=== PATIENT | male | born 1935 | race Caucasian/White ===

== ENCOUNTER 2016-08-26 12:42 | Inpatient (IN) | payer MEDICARE, OTHER ==
[2016-08-26 14:00] LABS: HEMATOCRIT 34.1 % (37.9-51.0); HEMOGLOBIN 10.6 g/dL (13.5-17.0); HGB HCT DIFFERENCE -2.3; MEAN CORPUSCULAR HGB CONC 31.1 g/dL (32.0-36.0); MEAN CORPUSCULAR VOLUME 90 fl (80-97); RED BLOOD COUNT 3.78 10^6/uL (4.35-5.55); RED CELL DISTRIBUTION WIDTH 14.8 % (11.5-14.0)
[2016-08-26 14:13] LABS: ALANINE AMINOTRANSFERASE 26 U/L (21-72); ALBUMIN 3.1 g/dL (3.5-5.0); ALKALINE PHOSPHATASE 54 U/L (38-126); ANION GAP 12 (5-19); ASPARTATE AMINO TRANSFERASE 19 U/L (17-59); BILIRUBIN,TOTAL 0.7 mg/dL (0.2-1.3); BLOOD UREA NITROGEN 23 mg/dL (7-20); CALCIUM 9.2 mg/dL (8.4-10.2); CARBON DIOXIDE 26 mmol/L (22-30); CHLORIDE 103 mmol/L (98-107); CREATININE RESULT 1.23 mg/dL (0.52-1.25); GLUCOSE 180 mg/dL (75-110); POTASSIUM 4.2 mmol/L (3.6-5.0); SODIUM 141.4 mmol/L (137-145); TOTAL PROTEIN 5.6 g/dL (6.3-8.2)
[2016-08-26 14:15] LABS: BAND NEUTROPHILS % (MANUAL) 5 % (3-5); BASOPHILS % (MANUAL) 0 % (0-2); EOSINOPHILS % (MANUAL) 0 % (0-6); LYMPHOCYTES % (MANUAL) 1 % (13-45); TOTAL CELLS COUNTED 100
[2016-08-26 14:19] LABS: HYPOCHROMASIA SLIGHT; OVALOCYTES SLIGHT; POIKILOCYTOSIS SLIGHT
--- NOTE | 2016-08-26 14:37 | ER Document Report ---
ED GI/ - General Mode of Arrival: Wheelchair Information source: Relative - and daughter - HPI Patient complains to provider of: Other - urine odor Associated symptoms: Other - See above <BISI FISH - Last Filed: 08/26/16 15:40> <ELKIN SWARTZ - Last Filed: 08/26/16 16:42> - General Chief Complaint: Urinary Problem Stated Complaint: urine odor Notes: Patient is an 81 year old male, with a past medical history including dementia, who presents to the emergency department, via EMS, with his and daughter for increased urine odor. Per , patient has had worsening dementia for the past 6-7 years, he is mostly non verbal, is able to partially eat and drink on his own, uses Depends, and is normally able to walk with assistance of a walker. Patient's reports that she noticed the patient's urine had a very strong odor this morning, he was diaphoretic and feverish, and he was unable to walk at all. Patient recently had a UTI, diagnosed at his doctor's office via urine sample taken from home, about 3 weeks ago and had been on antibiotics, he completed the treatment about a week ago. This was patient's 3rd UTI in 2 months. Per , patient has not vomited, had diarrhea, rashes, or unusual swelling. Patient's reports patient's last bowel movement was 2 days ago and was soft. PCP: Dr. Valderrama (BISI FISH) - Related Data Allergies/Adverse Reactions: No Known Allergies Allergy (Verified 08/26/16 15:51) Past Medical History - General Information source: Relative - - Social History Smoking Status: Unknown if Ever Smoked Family History: Reviewed & Not Pertinent Pulmonary Medical History: Reports: Hx COPD Renal/ Medical History: Reports: Hx Benign Prostatic Hyperplasia Psychiatric Medical History: Reports: Hx Dementia Past Surgical History: Reports: Hx Appendectomy, Hx Bowel Surgery - obstruction , Hx Thyroid Surgery <BISI FISH - Last Filed: 08/26/16 15:40> Review of Systems - Review of Systems -: Yes ROS unobtainable due to patient's medical condition - demented at baseline, nonverbal <BISI FISH - Last Filed: 08/26/16 15:40> Physical Exam - Vital signs Interpretation: Normal - General General appearance: Appears well, Alert - HEENT Head: Normocephalic, Atraumatic Eyes: Normal Pupils: PERRL Mucous membranes: Moist - Respiratory Respiratory status: No respiratory distress Chest status: Nontender Breath sounds: Normal Chest palpation: Normal - Cardiovascular Rhythm: Regular Heart sounds: Normal auscultation - distant heart sounds Murmur: No - Abdominal Inspection: Normal Distension: No distension Bowel sounds: Normal Tenderness: Nontender Organomegaly: No organomegaly - Extremities General upper extremity: Normal inspection General lower extremity: Normal inspection. No: Edema - Neurological Cognition: Other - Demented at baseline, non verbal - Skin Skin Moisture: Dry - Very dry Skin Color: Pale <BISI FISH - Last Filed: 08/26/16 15:40> Course - Laboratory Result Diagrams: 08/26/16 13:35 08/26/16 13:35 <BISI FISH - Last Filed: 08/26/16 15:40> - Laboratory Result Diagrams: 08/26/16 13:35 08/26/16 13:35 <ELKIN SWARTZ - Last Filed: 08/26/16 16:42> - Re-evaluation Re-evalutation: Medical decision-making: Patient with history of Alzheimer's dementia presents with foul-smelling urine and generalized weakness. His indicates that this morning he was diaphoretic and warm to touch. Patient exam is clinically worrisome for sepsis. He has a large leukocytosis and elevated lactate. Giving fluids and empirically treating with IV antibiotics. She will need to be admitted for IV fluids and antibiotics and likely further disposition and management as it seems that patient's could use some additional resources for looking after him. 08/26/16 14:54 08/26/16 16:[address] Abraham who is on-call for Dr. Valderrama who agrees to the admission. He indicates patient can go to the [facility]. (ELKIN SWARTZ) - Vital Signs Vital signs: Temp Pulse Resp BP Pulse Ox 99.0 F 81 18 113/64 96 08/26/16 16:03 08/26/16 13:15 08/26/16 16:00 08/26/16 16:00 08/26/16 16:00 (BISI FISH) (ELKIN SWARTZ) - Laboratory Laboratory results interpreted by me: 08/26/16 08/26/16 08/26/16 13:35 13:35 13:35 WBC 21.0 H RBC 3.78 L Hgb 10.6 L Hct 34.1 L MCHC 31.1 L RDW 14.8 H Seg Neuts % (Manual) 86 H Lymphocytes % (Manual) 1 L Abs Neuts (Manual) 19.1 H Abs Lymphs (Manual) 0.2 L Abs Monocytes (Manual) 1.7 H BUN 23 H Est GFR (Non-Af Amer) 56 L Glucose 180 H Lactic Acid 4.1 H Total Protein 5.6 L Albumin 3.1 L Urine Protein Urine Blood Urine Nitrite Ur Leukocyte Esterase 08/26/16 15:35 WBC RBC Hgb Hct MCHC RDW Seg Neuts % (Manual) Lymphocytes % (Manual) Abs Neuts (Manual) Abs Lymphs (Manual) Abs Monocytes (Manual) BUN Est GFR (Non-Af Amer) Glucose Lactic Acid Total Protein Albumin Urine Protein 100 H Urine Blood SMALL H Urine Nitrite POSITIVE H Ur Leukocyte Esterase LARGE H (BISI FISH) (ELKIN SWARTZ) - EKG Interpretation by Me Additional EKG results interpreted by me: 08/26/16 14:56 EKG: Heart rate 74, normal sinus rhythm, normal axis, normal intervals, no ST elevations, as interpreted by me. (ELKIN SWARTZ) Discharge <BISI FISH - Last Filed: 08/26/16 15:40> - Discharge Admitting Provider: [facility] Unit Admitted: [facility] <ELKIN SWARTZ - Last Filed: 08/26/16 16:42> - Discharge Clinical Impression: Sepsis syndrome, Urinary tract infection Condition: Serious Disposition: ADMITTED INPATIENT Scribe Attestation: 08/26/16 16:42 I personally performed the services described in the documentation, reviewed and edited the documentation which was dictated to the scribe in my presence, and it accurately records my words and actions. (ELKIN SWARTZ) Scribe Documentation - Scribe Written by Curtis:: curtis Ybarra, 08/26/16, [id number] acting as scribe for :: King <BISI FISH - Last Filed: 08/26/16 15:40>
[2016-08-26] MEDS ORDERED: NORMAL SALINE 1000 ML 1,000 ML IV PRN ×2 (14:39→17:50)
[2016-08-26] MEDS ORDERED: CEFTRIAXONE 1 GM/D5W RTU 50 ML IV ONE (14:40)
--- NOTE | 2016-08-26 15:17 | EKG REPORT ---
SEVERITY:- NORMAL ECG - SINUS RHYTHM : Confirmed by: Karla Flores MD 26-Aug-2016 15:16:08
[2016-08-26 16:23] LABS: APPEARANCE,URINE CLOUDY; BILIRUBIN,URINE NEGATIVE (NEGATIVE); GLUCOSE, URINE NEGATIVE (NEGATIVE); KETONES,URINE NEGATIVE (NEGATIVE); LEUKOCYTE ESTERASE,URINE LARGE (NEGATIVE); NITRITE,URINE POSITIVE (NEGATIVE); PROTEIN,URINE 100 mg/dL (NEGATIVE); URINE SPECIFIC GRAVITY 1.017; UROBILINOGEN,URINE NEGATIVE mg/dL (<2.0)
--- NOTE | 2016-08-26 18:08 | PDOC H&P ---
History of Present Illness Admission Date/PCP: AURELIA BOLANOS Patient complains of: fever/shivering History of Present Illness: ERIC COLLINS SR is a 81 year old male pt brought by family due to shivering and fever and not feeling well since last 2 days pt also had uti last wk and was on amoxicillin and noticed since yesterday pt felt very weak and shivering in er pt found urosepsis and start iv Rocephin and iv fluid pt also have dementia and per since last 2 wk pt is non verbal and more declined condition pt is er room alert and awake and shivering but no acute distress Past Medical History Pulmonary Medical History: Reports: Chronic Obstructive Pulmonary Disease (COPD) Psychiatric Medical History: Reports: Dementia Past Surgical History Past Surgical History: Reports: Appendectomy Social History Smoking Status: Former Smoker Frequency of Alcohol Use: None Hx Recreational Drug Use: No Hx Prescription Drug Abuse: No - Advance Directive Resuscitation Status: Do Not Resuscitate Family History Family History: Reviewed & Not Pertinent Parental Family History Reviewed: Yes Children Family History Reviewed: Yes Sibling(s) Family History Reviewed.: Yes Medication/Allergy Allergies/Adverse Reactions: No Known Allergies Allergy (Verified 08/26/16 15:51) Review of Systems Constitutional: PRESENT: chills, night sweats, weakness Nose, Mouth, and Throat: PRESENT: headache(s) Cardiovascular: ABSENT: chest pain, dyspnea on exertion Respiratory: ABSENT: cough Gastrointestinal: ABSENT: as per HPI, abdominal pain, bloating, coffee ground emesis, constipation, diarrhea, dysphagia, heartburn, hematemesis, hematochezia , melena, nausea, vomiting, other Genitourinary: PRESENT: difficulty urinating, dysuria, other Musculoskeletal: ABSENT: as per HPI, back pain, deformity, joint swelling, muscle weakness, other Integumentary: PRESENT: diaphoresis Neurological: PRESENT: confusion Physical Exam Vital Signs: Temp Pulse Resp BP Pulse Ox 98.6 F 81 20 137/63 H 95 08/26/16 17:53 08/26/16 13:15 08/26/16 17:53 08/26/16 17:53 08/26/16 17:53 Intake & Output 08/25/16 08/26/16 08/27/16 06:59 06:59 06:59 Weight 79.379 kg General appearance: PRESENT: no acute distress, other Head exam: PRESENT: normocephalic Eye exam: PRESENT: PERRLA Mouth exam: PRESENT: dry mucosa Neck exam: ABSENT: JVD Respiratory exam: PRESENT: clear to auscultation madai Cardiovascular exam: PRESENT: +S1, +S2 GI/Abdominal exam: PRESENT: normal bowel sounds, soft. ABSENT: tenderness Extremities exam: ABSENT: pedal edema Musculoskeletal exam: PRESENT: other Neurological exam: PRESENT: alert, altered, awake, oriented to person Psychiatric exam: PRESENT: anxious Skin exam: PRESENT: dry Results Laboratory Results: 08/26/16 13:35 08/26/16 13:35 08/26/16 08/26/16 08/26/16 13:35 13:35 13:35 WBC 21.0 H RBC 3.78 L Hgb 10.6 L Hct 34.1 L MCV 90 MCH 28.0 MCHC 31.1 L RDW 14.8 H Plt Count 209 Seg Neutrophils % Not Reportable Lymphocytes % Not Reportable Monocytes % Not Reportable Eosinophils % Not Reportable Basophils % Not Reportable Absolute Neutrophils Not Reportable Absolute Lymphocytes Not Reportable Absolute Monocytes Not Reportable Absolute Eosinophils Not Reportable Absolute Basophils Not Reportable Sodium 141.4 Potassium 4.2 Chloride 103 Carbon Dioxide 26 Anion Gap 12 BUN 23 H Creatinine 1.23 Est GFR ( Amer) > 60 Est GFR (Non-Af Amer) 56 L Glucose 180 H Lactic Acid 4.1 H Calcium 9.2 Total Bilirubin 0.7 AST 19 ALT 26 Alkaline Phosphatase 54 Total Protein 5.6 L Albumin 3.1 L Urine Color Urine Appearance Urine pH Ur Specific [place] Urine Protein Urine Glucose (UA) Urine Ketones Urine Blood Urine Nitrite Ur Leukocyte Esterase Urine WBC (Auto) Urine RBC (Auto) 08/26/16 15:35 WBC RBC Hgb Hct MCV MCH MCHC RDW Plt Count Seg Neutrophils % Lymphocytes % Monocytes % Eosinophils % Basophils % Absolute Neutrophils Absolute Lymphocytes Absolute Monocytes Absolute Eosinophils Absolute Basophils Sodium Potassium Chloride Carbon Dioxide Anion Gap BUN Creatinine Est GFR ( Amer) Est GFR (Non-Af Amer) Glucose Lactic Acid Calcium Total Bilirubin AST ALT Alkaline Phosphatase Total Protein Albumin Urine Color YELLOW Urine Appearance CLOUDY Urine pH 6.0 Ur Specific [place] 1.017 Urine Protein 100 H Urine Glucose (UA) NEGATIVE Urine Ketones NEGATIVE Urine Blood SMALL H Urine Nitrite POSITIVE H Ur Leukocyte Esterase LARGE H Urine WBC (Auto) >182 Urine RBC (Auto) 5 Impressions: Chest X-Ray 08/26/16 14:42 IMPRESSION: Obstructive lung disease. No acute findings. Assessment & Plan - Diagnosis (1) Sepsis syndrome Is this a current diagnosis for this admission?: YesPlan: most likly from uti will get urine culture/blood culture start broad sepctum antibiotics (2) Urinary tract infection Qualifiers: Hematuria presence: without hematuria Is this a current diagnosis for this admission?: YesPlan: recurrent episode start cefepim awit for culture iv fluid (3) Dementia Qualifiers: Dementia type: unspecified type Is this a current diagnosis for this admission?: YesPlan: since last 7 yr per family cont curr medication (4) COPD (chronic obstructive pulmonary disease) Qualifiers: COPD type: unspecified COPD Qualified Code(s): J44.9 - Chronic obstructive pulmonary disease, unspecified Is this a current diagnosis for this admission?: YesPlan: cont neb rx - Time Time Spent: 50 to 70 Minutes Medications reviewed and adjusted accordingly: Yes Anticipated discharge: Other - Inpatient Certification Medical Necessity: Failure to Improve With Outpatient Therapy, Need For IV Fluids, Need for IV Antibiotics Post Hospital Care: D/C Industrial Pharmacist Documentation - Plan Summary Plan Summary: start iv antiboitcs awit for culture iv fluid d/w family in room about pt condition and pt is no code pt is urosepsis and poor prognosis
[2016-08-26] MEDS: DOCUSATE SODIUM 100 MG CAPSULE PO SCH (18:34)
[2016-08-26] MEDS ORDERED: CEFEPIME 1 GM/D5W RTU 1 GM/50 ML RTUPB IV ONE (23:38)
[2016-08-26] MEDS: IBUPROFEN 600 MG TABLET PO PRN (23:52)
[2016-08-26] MEDS: CEFEPIME 1 GM/D5W RTU 1 GM/50 ML RTUPB IV SCH (23:53)
[2016-08-27] MEDS ORDERED: FAMOTIDINE 20 MG TABLET PO SCH ×2 (00:30→10:00)
[2016-08-27] MEDS ORDERED: GUAIFENESIN SYRP 200 MG/10 ML UDC PO PRN (00:57)
[2016-08-27] MEDS ORDERED: IPRATROPIUM/ALBUTEROL 0.5-2.5 MG/3 ML AMPUL NEB PRN (01:06)
[2016-08-27] MEDS ORDERED: IBUPROFEN 200 MG PO PRN (01:06)
[2016-08-27 04:54] LABS: ABSOLUTE BASOPHILS # (AUTO) 0.1 10^3/uL (0.0-0.2); ABSOLUTE LYMPHOCYTES (AUTO) 0.8 10^3/uL (0.5-4.7); ABSOLUTE MONOCYTES (AUTO) 0.9 10^3/uL (0.1-1.4); ABSOLUTE NEUT (AUTO) 13.7 10^3/uL (1.7-8.2); BASOPHILS % (AUTO) 0.4 % (0-2); EOSINOPHILS % (AUTO) 0.1 % (0-6); HEMATOCRIT 29.6 % (37.9-51.0); HEMOGLOBIN 9.4 g/dL (13.5-17.0); HGB HCT DIFFERENCE -1.4; LYMPHOCYTES % (AUTO) 5.2 % (13-45); MEAN CORPUSCULAR HEMOGLOBIN 28.5 pg (27.0-33.4); MEAN CORPUSCULAR HGB CONC 31.8 g/dL (32.0-36.0); MEAN CORPUSCULAR VOLUME 90 fl (80-97); MONOCYTES % (AUTO) 5.8 % (3-13); RED CELL DISTRIBUTION WIDTH 15.5 % (11.5-14.0); SEGMENTED NEUTROPHILS % (AUTO) 88.5 % (42-78); WHITE BLOOD COUNT 15.5 10^3/uL (4.0-10.5)
[2016-08-27 05:16] LABS: ALANINE AMINOTRANSFERASE 24 U/L (21-72); ALBUMIN 2.7 g/dL (3.5-5.0); ALKALINE PHOSPHATASE 47 U/L (38-126); ANION GAP 7 (5-19); ASPARTATE AMINO TRANSFERASE 18 U/L (17-59); BILIRUBIN,TOTAL 0.4 mg/dL (0.2-1.3); BLOOD UREA NITROGEN 23 mg/dL (7-20); CALCIUM 8.2 mg/dL (8.4-10.2); CARBON DIOXIDE 24 mmol/L (22-30); CHLORIDE 112 mmol/L (98-107); CREATININE RESULT 0.99 mg/dL (0.52-1.25); GLUCOSE 108 mg/dL (75-110); POTASSIUM 3.8 mmol/L (3.6-5.0); SODIUM 142.9 mmol/L (137-145); TOTAL PROTEIN 4.8 g/dL (6.3-8.2)
[2016-08-27] MEDS: LEVOTHYROXINE SODIUM 0.075 MG TABLET PO SCH (05:16)
[2016-08-27] MEDS: ACETAMINOPHEN 325 MG TABLET PO PRN (05:16)
[2016-08-27] MEDS: IBUPROFEN 600 MG TABLET PO PRN (05:17)
[2016-08-27] MEDS: LEVALBUTEROL HCL NEB 0.63 MG/3 ML AMPUL NEB SCH (08:06)
[2016-08-27] MEDS: ENOXAPARIN SODIUM INJ 40 MG/0.4 ML DISP.SYRIN SUBCUT SCH (09:16)
[2016-08-27] MEDS: DOXAZOSIN MESYLATE 4 MG TABLET PO SCH (09:17)
[2016-08-27] MEDS: CALCIUM CARBONATE 250 MG/VITAMIN D3 125 UNIT TABLET PO SCH (09:17)
[2016-08-27] MEDS: CITALOPRAM HYDROBROMIDE 20 MG TABLET PO SCH (09:17)
[2016-08-27] MEDS: ASCORBIC ACID 500 MG TABLET PO SCH (09:18)
[2016-08-27] MEDS: ASPIRIN 81 MG TABLET, CHEWABLE PO SCH (09:18)
[2016-08-27] MEDS: MULTIVITAMIN TABLET PO SCH (09:19)
[2016-08-27] MEDS: FINASTERIDE 5 MG TABLET PO SCH (09:19)
[2016-08-27] MEDS: DOCUSATE SODIUM 100 MG CAPSULE PO SCH ×2 (09:35→17:36)
[2016-08-27] MEDS: FLUTICASONE NASAL SPRAY 50 MCG/SPRY 120 SPRAY/16 GM NASL SCH (09:35)
[2016-08-27] MEDS ORDERED: [UNRECOGNIZED DRUG - OTHER] PO SCH (10:00)
[2016-08-27] MEDS ORDERED: CITALOPRAM HYDROBROMIDE 20 MG TABLET PO SCH (10:00)
[2016-08-27] MEDS ORDERED: LATANOPROST 0.005% OPH SOLN 2.5 ML OS SCH (10:00)
[2016-08-27] MEDS ORDERED: (PENDING PHARMACY ID) (Ranitidine Hcl [Zantac 150 Mg Tablet] 150 MG) PO SCH (10:00)
[2016-08-27] MEDS ORDERED: MULTIVITAMIN TABLET PO SCH (10:00)
[2016-08-27] MEDS ORDERED: LEVALBUTEROL HCL NEB 0.63 MG/3 ML AMPUL NEB SCH (10:00)
[2016-08-27] MEDS ORDERED: FLUTICASONE NASAL SPRAY 50 MCG/SPRY 120 SPRAY/16 GM NASL SCH (10:00)
[2016-08-27] MEDS ORDERED: DONEPEZIL HCL 23 MG PO SCH (10:00)
[2016-08-27] MEDS ORDERED: DOXAZOSIN MESYLATE 1 MG TABLET PO SCH (10:00)
[2016-08-27] MEDS ORDERED: LEVOTHYROXINE SODIUM 0.075 MG TABLET PO SCH (10:00)
[2016-08-27] MEDS ORDERED: CALCIUM CARBONATE PO SCH (10:00)
[2016-08-27] MEDS ORDERED: (PENDING PHARMACY ID) (Memantine Hcl [Namenda Xr] 28 MG) PO SCH (10:00)
[2016-08-27] MEDS ORDERED: LYCOPENE PO SCH (10:00)
[2016-08-27] MEDS ORDERED: VITAMIN D3 PO SCH (10:00)
[2016-08-27] MEDS ORDERED: ASPIRIN 81 MG TABLET, CHEWABLE PO SCH (10:00)
[2016-08-27] MEDS ORDERED: [UNRECOGNIZED DRUG - OTHER] PO SCH (10:00)
[2016-08-27] MEDS ORDERED: MULTIVITS MINERALS PO SCH (10:00)
[2016-08-27] MEDS: CEFEPIME 1 GM/D5W RTU 1 GM/50 ML RTUPB IV SCH ×2 (11:06→21:40)
[2016-08-27] MEDS ORDERED: NORMAL SALINE 1000 ML 1,000 ML IV PRN (13:08)
[2016-08-27] MEDS ORDERED: IBUPROFEN 600 MG TABLET PO PRN (13:13)
--- NOTE | 2016-08-27 13:13 | PDOC PROGRESS REPORT ---
Subjective Progress Note for:: 08/27/16 Subjective:: pt is feeling better fever also down pt blood culture shows gran neg Physical Exam Vital Signs: Temp Pulse Resp BP Pulse Ox 97.9 F 74 18 112/47 L 94 08/27/16 07:42 08/27/16 08:06 08/27/16 08:06 08/27/16 07:42 08/27/16 08:06 Intake & Output 08/26/16 08/27/16 08/28/16 06:59 06:59 06:59 Intake Total 850 591 Output Total 400 150 Balance 450 441 Weight 79.3 kg General appearance: PRESENT: no acute distress Eye exam: PRESENT: PERRLA Mouth exam: PRESENT: neck supple Respiratory exam: PRESENT: clear to auscultation madai Cardiovascular exam: PRESENT: +S1, +S2 GI/Abdominal exam: PRESENT: normal bowel sounds, soft. ABSENT: tenderness Extremities exam: ABSENT: pedal edema Neurological exam: PRESENT: alert, altered Skin exam: PRESENT: dry Results Laboratory Results: 08/27/16 04:36 08/27/16 04:36 08/26/16 08/27/16 08/27/16 19:35 03:46 04:36 WBC 15.5 H RBC 3.30 L Hgb 9.4 L Hct 29.6 L MCV 90 MCH 28.5 MCHC 31.8 L RDW 15.5 H Plt Count 149 L Seg Neutrophils % 88.5 H Lymphocytes % 5.2 L Monocytes % 5.8 Eosinophils % 0.1 Basophils % 0.4 Absolute Neutrophils 13.7 H Absolute Lymphocytes 0.8 Absolute Monocytes 0.9 Absolute Eosinophils 0.0 Absolute Basophils 0.1 Sodium Potassium Chloride Carbon Dioxide Anion Gap BUN Creatinine Est GFR ( Amer) Est GFR (Non-Af Amer) Glucose Lactic Acid 2.3 H 0.7 Calcium Total Bilirubin AST ALT Alkaline Phosphatase Total Protein Albumin 08/27/16 04:36 WBC RBC Hgb Hct MCV MCH MCHC RDW Plt Count Seg Neutrophils % Lymphocytes % Monocytes % Eosinophils % Basophils % Absolute Neutrophils Absolute Lymphocytes Absolute Monocytes Absolute Eosinophils Absolute Basophils Sodium 142.9 Potassium 3.8 Chloride 112 H Carbon Dioxide 24 Anion Gap 7 BUN 23 H Creatinine 0.99 Est GFR ( Amer) > 60 Est GFR (Non-Af Amer) > 60 Glucose 108 Lactic Acid Calcium 8.2 L Total Bilirubin 0.4 AST 18 ALT 24 Alkaline Phosphatase 47 Total Protein 4.8 L Albumin 2.7 L Impressions: Chest X-Ray 08/26/16 14:42 IMPRESSION: Obstructive lung disease. No acute findings. Assessment & Plan - Diagnosis (1) Sepsis syndrome Is this a current diagnosis for this admission?: YesPlan: from gran neg cont cefepim (2) Urinary tract infection Qualifiers: Hematuria presence: without hematuria Is this a current diagnosis for this admission?: YesPlan: recurrent episode start cefepim awit for culture iv fluid (3) Dementia Qualifiers: Dementia type: unspecified type Is this a current diagnosis for this admission?: YesPlan: since last 7 yr per family cont curr medication (4) COPD (chronic obstructive pulmonary disease) Qualifiers: COPD type: unspecified COPD Qualified Code(s): J44.9 - Chronic obstructive pulmonary disease, unspecified Is this a current diagnosis for this admission?: YesPlan: cont neb rx - Time Time Spent with patient: 15-24 minutes Medications reviewed and adjusted accordingly: Yes Anticipated discharge: Home - Inpatient Certification Medical Necessity: Significant Comorbidiites Make Outpatient Treatment Too Risky , Need For IV Fluids, Need for IV Antibiotics Post Hospital Care: D/C Dental Office Receptionist Documentation - Plan Summary Plan Summary: d/w about pt condition
[2016-08-27] MEDS: IPRATROPIUM/ALBUTEROL 0.5-2.5 MG/3 ML AMPUL NEB PRN (13:58)
[2016-08-27] MEDS: RANITIDINE 150 MG PO SCH (17:36)
[2016-08-27] MEDS: LATANOPROST 0.005% OPH SOLN 2.5 ML OS SCH (21:40)
[2016-08-27] MEDS: SIMVASTATIN 10 MG TABLET PO SCH (22:28)
[2016-08-28 04:50] LABS: ABSOLUTE BASOPHILS # (AUTO) 0.1 10^3/uL (0.0-0.2); ABSOLUTE EOSINOPHILS # (AUTO) 0.2 10^3/uL (0.0-0.6); ABSOLUTE LYMPHOCYTES (AUTO) 0.7 10^3/uL (0.5-4.7); ABSOLUTE MONOCYTES (AUTO) 0.8 10^3/uL (0.1-1.4); ABSOLUTE NEUT (AUTO) 7.6 10^3/uL (1.7-8.2); BASOPHILS % (AUTO) 0.8 % (0-2); EOSINOPHILS % (AUTO) 2.4 % (0-6); HEMATOCRIT 28.7 % (37.9-51.0); HEMOGLOBIN 9.1 g/dL (13.5-17.0); HGB HCT DIFFERENCE -1.4; LYMPHOCYTES % (AUTO) 7.8 % (13-45); MEAN CORPUSCULAR HEMOGLOBIN 28.6 pg (27.0-33.4); MEAN CORPUSCULAR HGB CONC 31.7 g/dL (32.0-36.0); MEAN CORPUSCULAR VOLUME 90 fl (80-97); MONOCYTES % (AUTO) 8.2 % (3-13); RED BLOOD COUNT 3.19 10^6/uL (4.35-5.55); RED CELL DISTRIBUTION WIDTH 15.5 % (11.5-14.0); SEGMENTED NEUTROPHILS % (AUTO) 80.8 % (42-78); WHITE BLOOD COUNT 9.4 10^3/uL (4.0-10.5)
[2016-08-28 05:12] LABS: ANION GAP 8 (5-19); BLOOD UREA NITROGEN 23 mg/dL (7-20); CALCIUM 8.4 mg/dL (8.4-10.2); CARBON DIOXIDE 23 mmol/L (22-30); CHLORIDE 111 mmol/L (98-107); GLUCOSE 97 mg/dL (75-110); POTASSIUM 3.7 mmol/L (3.6-5.0); SODIUM 142.4 mmol/L (137-145)
[2016-08-28] MEDS: LEVOTHYROXINE SODIUM 0.075 MG TABLET PO SCH (05:22)
[2016-08-28] MEDS: IPRATROPIUM/ALBUTEROL 0.5-2.5 MG/3 ML AMPUL NEB PRN ×4 (05:51→22:55)
[2016-08-28] MEDS: LEVALBUTEROL HCL NEB 0.63 MG/3 ML AMPUL NEB SCH (07:55)
[2016-08-28] MEDS: ENOXAPARIN SODIUM INJ 40 MG/0.4 ML DISP.SYRIN SUBCUT SCH (08:12)
--- NOTE | 2016-08-28 08:43 | PDOC PROGRESS REPORT ---
Subjective Progress Note for:: 08/28/16 Subjective:: Demented not able to contribute to his medical history. Spouse at bed =side reported initail improvement of Amoxicillin therapy about 3 weeks ago for presumed UTI. Remain on IV Cefepime coverage. Urine culture did grew E.Coli sensitive to Cefepime. Blood culture growing gram negative rods. No reported fever. No vomiting. No difficulty with breathing or observed chest discomfort. P.O intake fair. No diarrhea. Physical Exam Vital Signs: Temp Pulse Resp BP Pulse Ox 97.7 F 78 16 145/54 H 93 08/28/16 06:00 08/28/16 07:39 08/28/16 07:39 08/28/16 06:00 08/28/16 07:39 Intake & Output 08/27/16 08/28/16 08/29/16 06:59 06:59 06:59 Intake Total 850 2531 Output Total 400 451 Balance 450 2080 Weight 79.3 kg 79.3 kg General appearance: PRESENT: no acute distress, cooperative Head exam: PRESENT: atraumatic, normocephalic Eye exam: PRESENT: conjunctiva pink, EOMI, PERRLA Mouth exam: PRESENT: moist - fairly Respiratory exam: ABSENT: accessory muscle use, chest wall tenderness, clear to auscultation madai, crackles, decreased breath sounds, prolonged expiratory phas, rales, retraction, rhonchi, stridor, symmetrical, tachypnea, unlabored, wheezes , other Cardiovascular exam: PRESENT: RRR. ABSENT: diastolic murmur, rubs, systolic murmur GI/Abdominal exam: PRESENT: normal bowel sounds, soft. ABSENT: distended, guarding, mass, organolmegaly, rebound, tenderness Gentrourinary exam: PRESENT: indwelling catheter. ABSENT: ecchymosis, erythema , lacerations, lesions, scrotal swelling, testicular tenderness, urethral discharge, other Extremities exam: PRESENT: full ROM Musculoskeletal exam: PRESENT: deformity - from joint involvement in arthritis, full ROM Neurological exam: PRESENT: altered - due to dementia., awake Psychiatric exam: PRESENT: agitated, appropriate affect - with dementia Skin exam: PRESENT: dry, warm. ABSENT: abrasion, cyanosis, erythema, intact, jaundice, mottled, normal color, pallor, petechiae, rash, skin tears, urticaria , vesicles, other Results Laboratory Results: 08/28/16 04:14 08/28/16 04:14 08/28/16 08/28/16 04:14 04:14 WBC 9.4 RBC 3.19 L Hgb 9.1 L Hct 28.7 L MCV 90 MCH 28.6 MCHC 31.7 L RDW 15.5 H Plt Count 150 Seg Neutrophils % 80.8 H Lymphocytes % 7.8 L Monocytes % 8.2 Eosinophils % 2.4 Basophils % 0.8 Absolute Neutrophils 7.6 Absolute Lymphocytes 0.7 Absolute Monocytes 0.8 Absolute Eosinophils 0.2 Absolute Basophils 0.1 Sodium 142.4 Potassium 3.7 Chloride 111 H Carbon Dioxide 23 Anion Gap 8 BUN 23 H Creatinine 1.00 Est GFR ( Amer) > 60 Est GFR (Non-Af Amer) > 60 Glucose 97 Calcium 8.4 Impressions: Chest X-Ray 08/26/16 14:42 IMPRESSION: Obstructive lung disease. No acute findings. Assessment & Plan - Diagnosis (1) Escherichia coli septicemia Is this a current diagnosis for this admission?: YesPlan: Continue IV Cefepime coverage. Folow up on blood culture findings orion organism identification. (2) COPD (chronic obstructive pulmonary disease) Qualifiers: COPD type: unspecified COPD Qualified Code(s): J44.9 - Chronic obstructive pulmonary disease, unspecified Is this a current diagnosis for this admission?: YesPlan: Continue current medication management (3) Dementia Qualifiers: Dementia type: unspecified type Is this a current diagnosis for this admission?: Yes (4) Sepsis syndrome Is this a current diagnosis for this admission?: YesPlan: Continue on current medication management (5) Urinary tract infection Qualifiers: Hematuria presence: without hematuria Is this a current diagnosis for this admission?: YesPlan: Maintain on IV Cefepime coverage. - Time Time Spent with patient: 25-34 minutes - Inpatient Certification Based on my medical assessment, after consideration of the patient's comorbidities, presenting symptoms, or acuity I expect that the services needed warrant INPATIENT care.: Yes I certify that my determination is in accordance with my understanding of Medicare's requirements for reasonable and necessary INPATIENT services [42 CFR 412.3e].: Yes Medical Necessity: Need For IV Fluids, Need For Continuous Telemetry Monitoring , Need for IV Antibiotics Post Hospital Care: D/C Reheater Documentation - Plan Summary Plan Summary: continue current medication management and IV fluid support.
[2016-08-28] MEDS ORDERED: Donepezil Hcl [Aricept] 23 MG PO SCH (10:00)
[2016-08-28] MEDS: Memantine Hcl [Namenda Xr] 28 MG PO SCH (10:07)
[2016-08-28] MEDS: CEFEPIME 1 GM/D5W RTU 1 GM/50 ML RTUPB IV SCH ×2 (10:08→21:05)
[2016-08-28] MEDS: MULTIVITAMIN TABLET PO SCH (10:12)
[2016-08-28] MEDS: FINASTERIDE 5 MG TABLET PO SCH (10:13)
[2016-08-28] MEDS: ASPIRIN 81 MG TABLET, CHEWABLE PO SCH (10:13)
[2016-08-28] MEDS: ASCORBIC ACID 500 MG TABLET PO SCH (10:13)
[2016-08-28] MEDS: DOXAZOSIN MESYLATE 4 MG TABLET PO SCH (10:13)
[2016-08-28] MEDS: DOCUSATE SODIUM 100 MG CAPSULE PO SCH ×2 (10:13→17:22)
[2016-08-28] MEDS: CITALOPRAM HYDROBROMIDE 20 MG TABLET PO SCH (10:13)
[2016-08-28] MEDS: CALCIUM CARBONATE 250 MG/VITAMIN D3 125 UNIT TABLET PO SCH (10:14)
[2016-08-28] MEDS: RANITIDINE 150 MG PO SCH ×2 (10:17→17:22)
[2016-08-28] MEDS: FLUTICASONE NASAL SPRAY 50 MCG/SPRY 120 SPRAY/16 GM NASL SCH (10:17)
[2016-08-28] MEDS ORDERED: IBUPROFEN 400 MG TABLET PO PRN (15:36)
[2016-08-28] MEDS: Donepezil Hcl [Aricept] 23 MG PO SCH (21:04)
[2016-08-28] MEDS: LATANOPROST 0.005% OPH SOLN 2.5 ML OS SCH (21:05)
[2016-08-28] MEDS: SIMVASTATIN 10 MG TABLET PO SCH (21:05)
[2016-08-29 05:21] LABS: ABSOLUTE BASOPHILS # (AUTO) 0.1 10^3/uL (0.0-0.2); ABSOLUTE EOSINOPHILS # (AUTO) 0.3 10^3/uL (0.0-0.6); ABSOLUTE LYMPHOCYTES (AUTO) 0.7 10^3/uL (0.5-4.7); ABSOLUTE MONOCYTES (AUTO) 0.8 10^3/uL (0.1-1.4); ABSOLUTE NEUT (AUTO) 6.1 10^3/uL (1.7-8.2); EOSINOPHILS % (AUTO) 3.2 % (0-6); HEMATOCRIT 27.5 % (37.9-51.0); HGB HCT DIFFERENCE -0.5; LYMPHOCYTES % (AUTO) 9.5 % (13-45); MEAN CORPUSCULAR HEMOGLOBIN 29.1 pg (27.0-33.4); MEAN CORPUSCULAR HGB CONC 32.8 g/dL (32.0-36.0); MEAN CORPUSCULAR VOLUME 89 fl (80-97); MONOCYTES % (AUTO) 9.8 % (3-13); RED CELL DISTRIBUTION WIDTH 15.5 % (11.5-14.0); SEGMENTED NEUTROPHILS % (AUTO) 76.5 % (42-78); WHITE BLOOD COUNT 7.9 10^3/uL (4.0-10.5)
[2016-08-29] MEDS: LEVOTHYROXINE SODIUM 0.075 MG TABLET PO SCH (05:41)
[2016-08-29 05:43] LABS: ANION GAP 9 (5-19); BLOOD UREA NITROGEN 19 mg/dL (7-20); CALCIUM 8.5 mg/dL (8.4-10.2); CARBON DIOXIDE 24 mmol/L (22-30); CHLORIDE 111 mmol/L (98-107); CREATININE RESULT 0.83 mg/dL (0.52-1.25); GLUCOSE 86 mg/dL (75-110); POTASSIUM 3.5 mmol/L (3.6-5.0); SODIUM 143.6 mmol/L (137-145)
[2016-08-29] MEDS: IPRATROPIUM/ALBUTEROL 0.5-2.5 MG/3 ML AMPUL NEB PRN ×3 (05:54→20:50)
[2016-08-29] MEDS: LEVALBUTEROL HCL NEB 0.63 MG/3 ML AMPUL NEB SCH (09:00)
[2016-08-29] MEDS ORDERED: METHYLPREDNISOLONE INJ 40 MG/1 ML SDV IV ONE (09:15)
[2016-08-29] MEDS ORDERED: RACEPINEPHRINE HCL 2.25% NEB 0.5 ML AMPUL NEB ONE (09:16)
[2016-08-29] MEDS: CITALOPRAM HYDROBROMIDE 20 MG TABLET PO SCH (09:25)
[2016-08-29] MEDS: DOCUSATE SODIUM 100 MG CAPSULE PO SCH ×2 (09:25→18:10)
[2016-08-29] MEDS: CALCIUM CARBONATE 250 MG/VITAMIN D3 125 UNIT TABLET PO SCH (09:25)
[2016-08-29] MEDS: DOXAZOSIN MESYLATE 4 MG TABLET PO SCH (09:26)
[2016-08-29] MEDS: FINASTERIDE 5 MG TABLET PO SCH (09:26)
[2016-08-29] MEDS: MULTIVITAMIN TABLET PO SCH (09:26)
[2016-08-29] MEDS: ASPIRIN 81 MG TABLET, CHEWABLE PO SCH (09:26)
[2016-08-29] MEDS: ASCORBIC ACID 500 MG TABLET PO SCH (09:27)
[2016-08-29] MEDS: Memantine Hcl [Namenda Xr] 28 MG PO SCH (09:28)
[2016-08-29] MEDS: FLUTICASONE NASAL SPRAY 50 MCG/SPRY 120 SPRAY/16 GM NASL SCH (09:29)
[2016-08-29] MEDS: RANITIDINE 150 MG PO SCH ×2 (09:30→18:11)
[2016-08-29] MEDS: CEFEPIME 1 GM/D5W RTU 1 GM/50 ML RTUPB IV SCH (09:30)
[2016-08-29] MEDS: POTASSI CL 20 MEQ/50 ML RIDER 20 MEQ/50 ML RTUPB IV SCH ×2 (09:31→11:44)
[2016-08-29] MEDS: ENOXAPARIN SODIUM INJ 40 MG/0.4 ML DISP.SYRIN SUBCUT SCH (09:33)
--- NOTE | 2016-08-29 13:46 | PDOC PROGRESS REPORT ---
Subjective Progress Note for:: 08/29/16 Subjective:: Patient continue to experience coughing spells as per spousal report. Overnight sleep was fine. There is expressed concern for possible aspiration but she claimed that patient is always maintain in proper position during feeding and mainly take minimal appoint of food. Remain on bronchodilator therapy. Remain on IV Cefepime coverage. No reported fever. No vomiting or diarrhea. No observed chest discomfort. No diarrhea. Physical Exam Vital Signs: Temp Pulse Resp BP Pulse Ox 99.1 F 104 H 20 153/62 H 94 08/29/16 12:40 08/29/16 12:40 08/29/16 12:40 08/29/16 12:40 08/29/16 12:40 Intake & Output 08/28/16 08/29/16 08/30/16 06:59 06:59 06:59 Intake Total 2531 2856 0 Output Total 451 1325 600 Balance 2080 1531 -600 Weight 79.3 kg 78.9 kg General appearance: PRESENT: cooperative, mild distress - audible wheezing Head exam: PRESENT: atraumatic, normocephalic Eye exam: PRESENT: conjunctiva pink, EOMI, PERRLA Mouth exam: PRESENT: moist Respiratory exam: PRESENT: crackles, rhonchi, wheezes Cardiovascular exam: PRESENT: RRR. ABSENT: diastolic murmur, rubs, systolic murmur GI/Abdominal exam: PRESENT: normal bowel sounds, soft. ABSENT: distended, guarding, mass, organolmegaly, rebound, tenderness Extremities exam: PRESENT: full ROM Musculoskeletal exam: PRESENT: deformity - related to arthritis, full ROM Neurological exam: PRESENT: altered - due to dementia Psychiatric exam: PRESENT: other - limited assessment due to demnetia Skin exam: PRESENT: dry, intact, warm. ABSENT: cyanosis, rash Results Laboratory Results: 08/29/16 04:47 08/29/16 04:47 08/29/16 08/29/16 08/29/16 04:47 04:47 04:47 WBC 7.9 RBC 3.10 L Hgb 9.0 L Hct 27.5 L MCV 89 MCH 29.1 MCHC 32.8 RDW 15.5 H Plt Count 146 L Seg Neutrophils % 76.5 Lymphocytes % 9.5 L Monocytes % 9.8 Eosinophils % 3.2 Basophils % 1.0 Absolute Neutrophils 6.1 Absolute Lymphocytes 0.7 Absolute Monocytes 0.8 Absolute Eosinophils 0.3 Absolute Basophils 0.1 Sodium 143.6 Potassium 3.5 L Chloride 111 H Carbon Dioxide 24 Anion Gap 9 BUN 19 Creatinine 0.83 Est GFR ( Amer) > 60 Est GFR (Non-Af Amer) > 60 Glucose 86 Calcium 8.5 Magnesium 1.8 Impressions: Chest X-Ray 08/29/16 00:00 IMPRESSION: Obstructive lung disease Pulmonary vascular prominence with few increased interstitial markings at the left could reflect fluid overload or congestive failure. Early or developing left basilar pneumonia could not entirely be excluded Assessment & Plan - Diagnosis (1) Escherichia coli septicemia Is this a current diagnosis for this admission?: YesPlan: Continue IV Cefepime coverage. Follow up on blood culture findings for organism identification. (2) COPD (chronic obstructive pulmonary disease) Qualifiers: COPD type: unspecified COPD Qualified Code(s): J44.9 - Chronic obstructive pulmonary disease, unspecified Is this a current diagnosis for this admission?: YesPlan: Continue current medication management. I will start on low dose Solu Medrol at 40 mg [id number]. I will request for portable chest X ray for further evaluation of possible aspiration pneumonitis. (3) Dementia Qualifiers: Dementia type: unspecified type Is this a current diagnosis for this admission?: YesPlan: Continue supportive care and I had discussion with spouse at bedside regarding his poor outcome prognosis. (4) Sepsis syndrome Is this a current diagnosis for this admission?: YesPlan: Continue on current medication management. Both blood and urine culture grew E. coli. sensitive to Cefepinme. (5) Urinary tract infection Qualifiers: Hematuria presence: without hematuria Is this a current diagnosis for this admission?: YesPlan: Maintain on IV Cefepime coverage. (6) Hypokalemia due to loss of potassium Is this a current diagnosis for this admission?: NoPlan: Patient will receive potassium replacement via K-Bne for total of 40 mEq. I will repeat BMP in AM. - Time Time Spent with patient: 25-34 minutes Medications reviewed and adjusted accordingly: Yes Anticipated discharge: Home with Homehealth Within: Other - Inpatient Certification Medical Necessity: Need Close Monitoring Due to Risk of Patient Decompensation, Need For IV Fluids, Need for IV Antibiotics, Risk of Diagnosis Which Will Require Inpatient Eval/Care/Monitoring Post Hospital Care: D/C Road Contractor Documentation - Plan Summary Plan Summary: See attending physician orders.
[2016-08-29] MEDS: METHYLPREDNISOLONE INJ 40 MG/1 ML SDV IV SCH ×2 (14:09→21:01)
[2016-08-29] MEDS: ACETAMINOPHEN 325 MG TABLET PO PRN (14:10)
[2016-08-29] MEDS: CEFAZOLIN SODIUM 1 GM in DEXTROSE 5%-WATER 50 ML IV SCH ×2 (18:10→23:32)
[2016-08-29] MEDS: Donepezil Hcl [Aricept] 23 MG PO SCH (20:00)
[2016-08-29] MEDS: LATANOPROST 0.005% OPH SOLN 2.5 ML OS SCH (21:01)
[2016-08-29] MEDS: SIMVASTATIN 10 MG TABLET PO SCH (21:02)
[2016-08-29] MEDS ORDERED: SIMVASTATIN 10 MG TABLET PO SCH (22:00)
[2016-08-30] MEDS: IPRATROPIUM/ALBUTEROL 0.5-2.5 MG/3 ML AMPUL NEB PRN ×3 (00:13→23:41)
[2016-08-30] MEDS: METHYLPREDNISOLONE INJ 40 MG/1 ML SDV IV SCH ×3 (05:27→21:09)
[2016-08-30] MEDS: CEFAZOLIN SODIUM 1 GM in DEXTROSE 5%-WATER 50 ML IV SCH ×4 (05:27→23:43)
[2016-08-30] MEDS: LEVOTHYROXINE SODIUM 0.075 MG TABLET PO SCH (06:33)
[2016-08-30] MEDS: ENOXAPARIN SODIUM INJ 40 MG/0.4 ML DISP.SYRIN SUBCUT SCH (07:35)
[2016-08-30] MEDS: LEVALBUTEROL HCL NEB 0.63 MG/3 ML AMPUL NEB SCH (08:09)
[2016-08-30] MEDS: DOXAZOSIN MESYLATE 4 MG TABLET PO SCH (09:40)
[2016-08-30] MEDS: MULTIVITAMIN TABLET PO SCH (09:41)
[2016-08-30] MEDS: CALCIUM CARBONATE 250 MG/VITAMIN D3 125 UNIT TABLET PO SCH (09:41)
[2016-08-30] MEDS: FINASTERIDE 5 MG TABLET PO SCH (09:41)
[2016-08-30] MEDS: FLUTICASONE NASAL SPRAY 50 MCG/SPRY 120 SPRAY/16 GM NASL SCH (09:41)
[2016-08-30] MEDS: DOCUSATE SODIUM 100 MG CAPSULE PO SCH ×2 (09:41→17:13)
[2016-08-30] MEDS: ASPIRIN 81 MG TABLET, CHEWABLE PO SCH (09:41)
[2016-08-30] MEDS: CITALOPRAM HYDROBROMIDE 20 MG TABLET PO SCH (09:42)
[2016-08-30] MEDS: ASCORBIC ACID 500 MG TABLET PO SCH (09:42)
[2016-08-30] MEDS: RANITIDINE 150 MG PO SCH ×2 (09:44→17:14)
[2016-08-30] MEDS: Memantine Hcl [Namenda Xr] 28 MG PO SCH (09:44)
--- NOTE | 2016-08-30 17:59 | PDOC PROGRESS REPORT ---
Subjective Progress Note for:: 08/30/16 Subjective:: Patient is more awake and cooperative so far today. He remain on supplemental oxygen via face tent. Less issue with coughing today. No reported fever. No vomiting or diarrhea. No observed chest discomfort. Physical Exam Vital Signs: Temp Pulse Resp BP Pulse Ox 98.2 F 94 18 151/84 H 97 08/30/16 15:19 08/30/16 16:24 08/30/16 16:24 08/30/16 15:19 08/30/16 16:24 Intake & Output 08/29/16 08/30/16 08/31/16 06:59 06:59 06:59 Intake Total 2856 1885 1300 Output Total 1325 1550 275 Balance 5831 589 8494 Weight 78.9 kg 79.1 kg Physical Exam: General appearance: PRESENT: cooperative, face tent in use. Head exam: PRESENT: atraumatic, normocephalic Eye exam: PRESENT: conjunctiva pink, EOMI, PERRLA Mouth exam: PRESENT: moist Respiratory exam: PRESENT: crackles, rhonchi, wheezes Cardiovascular exam: PRESENT: RRR. ABSENT: diastolic murmur, rubs, systolic murmur GI/Abdominal exam: PRESENT: normal bowel sounds, soft. ABSENT: distended, guarding, mass, organolmegaly, rebound, tenderness Extremities exam: PRESENT: full ROM Musculoskeletal exam: PRESENT: deformity - related to arthritis, full ROM Neurological exam: PRESENT: altered - due to dementia Psychiatric exam: PRESENT: other - limited assessment due to dementia Skin exam: PRESENT: dry, intact, warm. ABSENT: cyanosis, rash Results Laboratory Results: 08/29/16 04:47 08/29/16 04:47 Impressions: Chest X-Ray 08/29/16 00:00 IMPRESSION: Obstructive lung disease Pulmonary vascular prominence with few increased interstitial markings at the left could reflect fluid overload or congestive failure. Early or developing left basilar pneumonia could not entirely be excluded Assessment & Plan - Diagnosis (1) Escherichia coli septicemia Is this a current diagnosis for this admission?: YesPlan: Continue IV Cefazolin coverage (2) COPD (chronic obstructive pulmonary disease) Qualifiers: COPD type: unspecified COPD Qualified Code(s): J44.9 - Chronic obstructive pulmonary disease, unspecified Is this a current diagnosis for this admission?: Yes (3) Dementia Qualifiers: Dementia type: unspecified type Is this a current diagnosis for this admission?: Yes (4) Sepsis syndrome Is this a current diagnosis for this admission?: YesPlan: Continue on current medication management. (5) Urinary tract infection Qualifiers: Hematuria presence: without hematuria Is this a current diagnosis for this admission?: YesPlan: Maintain on IV Cefazolin coverage. (6) Hypokalemia due to loss of potassium Is this a current diagnosis for this admission?: No - Time Time Spent with patient: 25-34 minutes - Inpatient Certification Based on my medical assessment, after consideration of the patient's comorbidities, presenting symptoms, or acuity I expect that the services needed warrant INPATIENT care.: Yes I certify that my determination is in accordance with my understanding of Medicare's requirements for reasonable and necessary INPATIENT services [42 CFR 412.3e].: Yes Medical Necessity: Need Close Monitoring Due to Risk of Patient Decompensation, Need For IV Fluids, Need For Continuous Telemetry Monitoring, Need for IV Antibiotics, Risk of Complication if Not Cared For in Hospital Post Hospital 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 Decrease IV fluid rate to 50 ml/hour. Obtain CBC with diff, BMP in AM.
[2016-08-30] MEDS: Donepezil Hcl [Aricept] 23 MG PO SCH (21:00)
[2016-08-30] MEDS: SIMVASTATIN 10 MG TABLET PO SCH (21:10)
[2016-08-30] MEDS: LATANOPROST 0.005% OPH SOLN 2.5 ML OS SCH (21:10)
[2016-08-31] MEDS: IPRATROPIUM/ALBUTEROL 0.5-2.5 MG/3 ML AMPUL NEB PRN ×2 (04:41→17:36)
[2016-08-31] MEDS: METHYLPREDNISOLONE INJ 40 MG/1 ML SDV IV SCH ×3 (05:04→21:18)
[2016-08-31] MEDS: LEVOTHYROXINE SODIUM 0.075 MG TABLET PO SCH (05:04)
[2016-08-31] MEDS: CEFAZOLIN SODIUM 1 GM in DEXTROSE 5%-WATER 50 ML IV SCH ×3 (05:04→17:16)
[2016-08-31 07:14] LABS: HEMATOCRIT 26.6 % (37.9-51.0); HEMOGLOBIN 8.8 g/dL (13.5-17.0); HGB HCT DIFFERENCE -0.2; MEAN CORPUSCULAR HEMOGLOBIN 29.5 pg (27.0-33.4); MEAN CORPUSCULAR HGB CONC 33.2 g/dL (32.0-36.0); MEAN CORPUSCULAR VOLUME 89 fl (80-97); RED BLOOD COUNT 2.99 10^6/uL (4.35-5.55); RED CELL DISTRIBUTION WIDTH 15.5 % (11.5-14.0); WHITE BLOOD COUNT 10.1 10^3/uL (4.0-10.5)
[2016-08-31] MEDS: ENOXAPARIN SODIUM INJ 40 MG/0.4 ML DISP.SYRIN SUBCUT SCH (07:47)
[2016-08-31] MEDS: LEVALBUTEROL HCL NEB 0.63 MG/3 ML AMPUL NEB SCH (07:55)
[2016-08-31] MEDS: FINASTERIDE 5 MG TABLET PO SCH (09:35)
[2016-08-31] MEDS: ASCORBIC ACID 500 MG TABLET PO SCH (09:35)
[2016-08-31] MEDS: ASPIRIN 81 MG TABLET, CHEWABLE PO SCH (09:36)
[2016-08-31] MEDS: CITALOPRAM HYDROBROMIDE 20 MG TABLET PO SCH (09:36)
[2016-08-31] MEDS: MULTIVITAMIN TABLET PO SCH (09:36)
[2016-08-31] MEDS: DOXAZOSIN MESYLATE 4 MG TABLET PO SCH (09:36)
[2016-08-31] MEDS: CALCIUM CARBONATE 250 MG/VITAMIN D3 125 UNIT TABLET PO SCH (09:36)
[2016-08-31] MEDS: Memantine Hcl [Namenda Xr] 28 MG PO SCH (09:37)
[2016-08-31] MEDS: DOCUSATE SODIUM 100 MG CAPSULE PO SCH ×2 (09:38→17:16)
[2016-08-31] MEDS: RANITIDINE 150 MG PO SCH ×2 (09:38→17:17)
[2016-08-31] MEDS: FLUTICASONE NASAL SPRAY 50 MCG/SPRY 120 SPRAY/16 GM NASL SCH (09:38)
[2016-08-31 11:16] LABS: BASOPHILS % (MANUAL) 0 % (0-2); EOSINOPHILS % (MANUAL) 0 % (0-6); LYMPHOCYTES % (MANUAL) 5 % (13-45); TOTAL CELLS COUNTED 100
[2016-08-31 11:18] LABS: ANISOCYTOSIS SLIGHT; BURR CELLS 1+; OVALOCYTES 1+; POIKILOCYTOSIS 1+; TOXIC GRANULATION SLIGHT
[2016-08-31] MEDS: NORMAL SALINE 1000 ML 1,000 ML IV PRN (12:19)
--- NOTE | 2016-08-31 18:24 | PDOC PROGRESS REPORT ---
Subjective Progress Note for:: 08/31/16 Subjective:: Patient continue to show some improvement clinically. No fever or chills. Coughing spells has improved. He remain on supplemental oxygen via face tent. No observed chest discomfort. No vomiting or diarrhea. Tolerating oral feeding. Physical Exam Vital Signs: Temp Pulse Resp BP Pulse Ox 99.2 F 86 19 131/66 H 100 08/31/16 15:17 08/31/16 15:17 08/31/16 15:17 08/31/16 15:17 08/31/16 15:17 Intake & Output 08/30/16 08/31/16 09/01/16 06:59 06:59 06:59 Intake Total 1885 2250 1037 Output Total 1550 1175 200 Balance 335 1075 837 Weight 79.1 kg 84.3 kg Physical Exam: Physical Exam: General appearance: PRESENT: cooperative, face tent in use. Head exam: PRESENT: atraumatic, normocephalic Eye exam: PRESENT: conjunctiva pink, EOMI, PERRLA Mouth exam: PRESENT: moist Respiratory exam: PRESENT: crackles, rhonchi, wheezes Cardiovascular exam: PRESENT: RRR. ABSENT: diastolic murmur, rubs, systolic murmur GI/Abdominal exam: PRESENT: normal bowel sounds, soft. ABSENT: distended, guarding, mass, organolmegaly, rebound, tenderness Extremities exam: PRESENT: full ROM Musculoskeletal exam: PRESENT: deformity - related to arthritis, full ROM Neurological exam: PRESENT: altered - due to dementia Psychiatric exam: PRESENT: other - limited assessment due to dementia Skin exam: PRESENT: dry, intact, warm. ABSENT: cyanosis, rash Results Laboratory Results: 08/31/16 07:05 08/29/16 04:47 08/31/16 07:05 WBC 10.1 RBC 2.99 L Hgb 8.8 L Hct 26.6 L MCV 89 MCH 29.5 MCHC 33.2 RDW 15.5 H Plt Count 207 Seg Neutrophils % Not Reportable Lymphocytes % Not Reportable Monocytes % Not Reportable Eosinophils % Not Reportable Basophils % Not Reportable Absolute Neutrophils Not Reportable Absolute Lymphocytes Not Reportable Absolute Monocytes Not Reportable Absolute Eosinophils Not Reportable Absolute Basophils Not Reportable Impressions: Chest X-Ray 08/29/16 00:00 IMPRESSION: Obstructive lung disease Pulmonary vascular prominence with few increased interstitial markings at the left could reflect fluid overload or congestive failure. Early or developing left basilar pneumonia could not entirely be excluded Assessment & Plan - Diagnosis (1) Escherichia coli septicemia Is this a current diagnosis for this admission?: YesPlan: Continue IV Cefazolin coverage. Monitor CBC indices. (2) COPD (chronic obstructive pulmonary disease) Qualifiers: COPD type: unspecified COPD Qualified Code(s): J44.9 - Chronic obstructive pulmonary disease, unspecified Is this a current diagnosis for this admission?: YesPlan: Continue current medication management. (3) Dementia Qualifiers: Dementia type: unspecified type Is this a current diagnosis for this admission?: Yes (4) Sepsis syndrome Is this a current diagnosis for this admission?: YesPlan: Continue on current medication management. (5) Urinary tract infection Qualifiers: Hematuria presence: without hematuria Is this a current diagnosis for this admission?: YesPlan: Maintain on IV Cefazolin coverage. (6) Hypokalemia due to loss of potassium Is this a current diagnosis for this admission?: No (7) Anemia of chronic disease Is this a current diagnosis for this admission?: YesPlan: Obtain stool guaiac test and anemia workup. Repeat CBC with diff in AM. - Time Time Spent with patient: 25-34 minutes Medications reviewed and adjusted accordingly: Yes Anticipated discharge: Home with Homehealth Within: Other - Inpatient Certification Based on my medical assessment, after consideration of the patient's comorbidities, presenting symptoms, or acuity I expect that the services needed warrant INPATIENT care.: Yes I certify that my determination is in accordance with my understanding of Medicare's requirements for reasonable and necessary INPATIENT services [42 CFR 412.3e].: Yes Medical Necessity: Need Close Monitoring Due to Risk of Patient Decompensation, Need For IV Fluids, Need For Continuous Telemetry Monitoring, Need for Nebulizer Therapy and Monitoring of Response, Need for IV Antibiotics, Risk of Complication if Not Cared For in Hospital Post Hospital 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
[2016-08-31] MEDS: SIMVASTATIN 10 MG TABLET PO SCH (21:18)
[2016-08-31] MEDS: LATANOPROST 0.005% OPH SOLN 2.5 ML OS SCH (21:18)
[2016-08-31] MEDS: Donepezil Hcl [Aricept] 23 MG PO SCH (21:20)
[2016-09-01] MEDS: CEFAZOLIN SODIUM 1 GM in DEXTROSE 5%-WATER 50 ML IV SCH ×5 (00:37→23:51)
[2016-09-01 05:18] LABS: ABSOLUTE LYMPHOCYTES (AUTO) 0.6 10^3/uL (0.5-4.7); ABSOLUTE MONOCYTES (AUTO) 0.7 10^3/uL (0.1-1.4); ABSOLUTE NEUT (AUTO) 8.5 10^3/uL (1.7-8.2); BASOPHILS % (AUTO) 0.1 % (0-2); HEMATOCRIT 25.2 % (37.9-51.0); HEMOGLOBIN 8.4 g/dL (13.5-17.0); MEAN CORPUSCULAR HEMOGLOBIN 29.2 pg (27.0-33.4); MEAN CORPUSCULAR HGB CONC 33.2 g/dL (32.0-36.0); MEAN CORPUSCULAR VOLUME 88 fl (80-97); MONOCYTES % (AUTO) 7.2 % (3-13); RED BLOOD COUNT 2.87 10^6/uL (4.35-5.55); RED CELL DISTRIBUTION WIDTH 15.4 % (11.5-14.0); SEGMENTED NEUTROPHILS % (AUTO) 86.7 % (42-78); WHITE BLOOD COUNT 9.8 10^3/uL (4.0-10.5)
[2016-09-01 05:36] LABS: ANION GAP 9 (5-19); BLOOD UREA NITROGEN 23 mg/dL (7-20); CALCIUM 8.8 mg/dL (8.4-10.2); CARBON DIOXIDE 24 mmol/L (22-30); CHLORIDE 108 mmol/L (98-107); CREATININE RESULT 0.68 mg/dL (0.52-1.25); POTASSIUM 4.2 mmol/L (3.6-5.0)
[2016-09-01 05:44] LABS: GLUCOSE 114 mg/dL (75-110)
[2016-09-01] MEDS: LEVOTHYROXINE SODIUM 0.075 MG TABLET PO SCH (06:05)
[2016-09-01] MEDS: METHYLPREDNISOLONE INJ 40 MG/1 ML SDV IV SCH ×3 (06:05→21:31)
[2016-09-01] MEDS: ENOXAPARIN SODIUM INJ 40 MG/0.4 ML DISP.SYRIN SUBCUT SCH (07:50)
[2016-09-01] MEDS: LEVALBUTEROL HCL NEB 0.63 MG/3 ML AMPUL NEB SCH (08:00)
[2016-09-01] MEDS: FINASTERIDE 5 MG TABLET PO SCH (09:58)
[2016-09-01] MEDS: ASPIRIN 81 MG TABLET, CHEWABLE PO SCH (09:58)
[2016-09-01] MEDS: CALCIUM CARBONATE 250 MG/VITAMIN D3 125 UNIT TABLET PO SCH (09:59)
[2016-09-01] MEDS: MULTIVITAMIN TABLET PO SCH (09:59)
[2016-09-01] MEDS: DOXAZOSIN MESYLATE 4 MG TABLET PO SCH (09:59)
[2016-09-01] MEDS: ASCORBIC ACID 500 MG TABLET PO SCH (09:59)
[2016-09-01] MEDS: CITALOPRAM HYDROBROMIDE 20 MG TABLET PO SCH (09:59)
[2016-09-01] MEDS: Memantine Hcl [Namenda Xr] 28 MG PO SCH (10:04)
[2016-09-01] MEDS: FLUTICASONE NASAL SPRAY 50 MCG/SPRY 120 SPRAY/16 GM NASL SCH (10:05)
[2016-09-01] MEDS: RANITIDINE 150 MG PO SCH ×2 (10:05→17:15)
[2016-09-01] MEDS: DOCUSATE SODIUM 100 MG CAPSULE PO SCH ×2 (10:05→17:15)
[2016-09-01] MEDS: NORMAL SALINE 1000 ML 1,000 ML IV PRN (13:50)
[2016-09-01] MEDS: IPRATROPIUM/ALBUTEROL 0.5-2.5 MG/3 ML AMPUL NEB PRN ×2 (14:37→23:54)
--- NOTE | 2016-09-01 16:06 | PDOC PROGRESS REPORT ---
Subjective Progress Note for:: 09/01/16 Subjective:: Currently off face tent oxygen supplementation. Remain on 4L/min via nasal cannula. Participated in bedside PT session since last clinical assessment. No reported fever or chills. Coughing spells has improved. No observed chest discomfort. No vomiting or diarrhea. Tolerating oral feeding. Physical Exam Vital Signs: Temp Pulse Resp BP Pulse Ox 98.4 F 91 18 133/54 H 96 09/01/16 11:49 09/01/16 14:37 09/01/16 14:37 09/01/16 11:49 09/01/16 11:49 Intake & Output 08/31/16 09/01/16 09/02/16 06:59 06:59 06:59 Intake Total 2250 2048 679 Output Total 1175 1575 400 Balance 1075 473 279 Weight 84.3 kg 82.5 kg Physical Exam: Physical Exam: General appearance: PRESENT: cooperative, face tent in use. Head exam: PRESENT: atraumatic, normocephalic Eye exam: PRESENT: conjunctiva pink, EOMI, PERRLA Mouth exam: PRESENT: moist Respiratory exam: PRESENT: crackles, rhonchi, wheezes Cardiovascular exam: PRESENT: RRR. ABSENT: diastolic murmur, rubs, systolic murmur GI/Abdominal exam: PRESENT: normal bowel sounds, soft. ABSENT: distended, guarding, mass, organolmegaly, rebound, tenderness Extremities exam: PRESENT: full ROM Musculoskeletal exam: PRESENT: deformity - related to arthritis, full ROM Neurological exam: PRESENT: altered - due to dementia Psychiatric exam: PRESENT: other - limited assessment due to dementia Skin exam: PRESENT: dry, intact, warm. ABSENT: cyanosis, rash Results Laboratory Results: 09/01/16 04:44 09/01/16 04:44 09/01/16 09/01/16 04:44 04:44 WBC 9.8 RBC 2.87 L Hgb 8.4 L Hct 25.2 L MCV 88 MCH 29.2 MCHC 33.2 RDW 15.4 H Plt Count 211 Seg Neutrophils % 86.7 H Lymphocytes % 6.0 L Monocytes % 7.2 Eosinophils % 0.0 Basophils % 0.1 Absolute Neutrophils 8.5 H Absolute Lymphocytes 0.6 Absolute Monocytes 0.7 Absolute Eosinophils 0.0 Absolute Basophils 0.0 Retic Count (auto) 1.13 Absolute Retic 0.033 Sodium 141.0 Potassium 4.2 Chloride 108 H Carbon Dioxide 24 Anion Gap 9 BUN 23 H Creatinine 0.68 Est GFR ( Amer) > 60 Est GFR (Non-Af Amer) > 60 Glucose 114 H Calcium 8.8 Iron 13 L TIBC 260 % Saturation 5 Ferritin 133.00 Vitamin B12 402.0 Folate 18.10 Impressions: Chest X-Ray 08/29/16 00:00 IMPRESSION: Obstructive lung disease Pulmonary vascular prominence with few increased interstitial markings at the left could reflect fluid overload or congestive failure. Early or developing left basilar pneumonia could not entirely be excluded Assessment & Plan - Diagnosis (1) Escherichia coli septicemia Is this a current diagnosis for this admission?: YesPlan: Continue IV Cefazolin coverage. Monitor CBC indices. (2) COPD (chronic obstructive pulmonary disease) Qualifiers: COPD type: unspecified COPD Qualified Code(s): J44.9 - Chronic obstructive pulmonary disease, unspecified Is this a current diagnosis for this admission?: YesPlan: Continue current medication management. (3) Dementia Qualifiers: Dementia type: unspecified type Is this a current diagnosis for this admission?: YesPlan: Continue supportive care management. (4) Sepsis syndrome Is this a current diagnosis for this admission?: YesPlan: Continue on current medication management. (5) Urinary tract infection Qualifiers: Hematuria presence: without hematuria Is this a current diagnosis for this admission?: YesPlan: Maintain on IV Cefazolin coverage. (6) Hypokalemia due to loss of potassium Is this a current diagnosis for this admission?: No (7) Anemia of chronic disease Is this a current diagnosis for this admission?: YesPlan: Pending stool guaiac test. Anemia workup so far suggested chronic disease process. Repeat CBC with diff in AM and possible PRBC transfusion if hemoglobin is less than 8gm/dL. 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
[2016-09-01] MEDS: Donepezil Hcl [Aricept] 23 MG PO SCH (21:30)
[2016-09-01] MEDS: SIMVASTATIN 10 MG TABLET PO SCH (21:31)
[2016-09-01] MEDS: LATANOPROST 0.005% OPH SOLN 2.5 ML OS SCH (21:31)
[2016-09-02 05:04] LABS: ABSOLUTE LYMPHOCYTES (AUTO) 0.5 10^3/uL (0.5-4.7); ABSOLUTE MONOCYTES (AUTO) 0.7 10^3/uL (0.1-1.4); ABSOLUTE NEUT (AUTO) 8.1 10^3/uL (1.7-8.2); HEMATOCRIT 24.5 % (37.9-51.0); HEMOGLOBIN 8.1 g/dL (13.5-17.0); HGB HCT DIFFERENCE -0.2; LYMPHOCYTES % (AUTO) 5.7 % (13-45); MEAN CORPUSCULAR HEMOGLOBIN 29.1 pg (27.0-33.4); MEAN CORPUSCULAR VOLUME 88 fl (80-97); MONOCYTES % (AUTO) 7.8 % (3-13); RED BLOOD COUNT 2.78 10^6/uL (4.35-5.55); SEGMENTED NEUTROPHILS % (AUTO) 86.5 % (42-78); WHITE BLOOD COUNT 9.3 10^3/uL (4.0-10.5)
[2016-09-02] MEDS: CEFAZOLIN SODIUM 1 GM in DEXTROSE 5%-WATER 50 ML IV SCH ×3 (06:29→17:16)
[2016-09-02] MEDS: METHYLPREDNISOLONE INJ 40 MG/1 ML SDV IV SCH ×3 (06:30→21:14)
[2016-09-02] MEDS: LEVOTHYROXINE SODIUM 0.075 MG TABLET PO SCH (06:30)
[2016-09-02] MEDS: ENOXAPARIN SODIUM INJ 40 MG/0.4 ML DISP.SYRIN SUBCUT SCH (07:11)
[2016-09-02] MEDS: ASPIRIN 81 MG TABLET, CHEWABLE PO SCH (09:39)
[2016-09-02] MEDS: MULTIVITAMIN TABLET PO SCH (09:39)
[2016-09-02] MEDS: FINASTERIDE 5 MG TABLET PO SCH (09:39)
[2016-09-02] MEDS: ASCORBIC ACID 500 MG TABLET PO SCH (09:40)
[2016-09-02] MEDS: CITALOPRAM HYDROBROMIDE 20 MG TABLET PO SCH (09:40)
[2016-09-02] MEDS: CALCIUM CARBONATE 250 MG/VITAMIN D3 125 UNIT TABLET PO SCH (09:40)
[2016-09-02] MEDS: Memantine Hcl [Namenda Xr] 28 MG PO SCH (09:41)
[2016-09-02] MEDS: DOXAZOSIN MESYLATE 4 MG TABLET PO SCH (09:42)
[2016-09-02] MEDS: FLUTICASONE NASAL SPRAY 50 MCG/SPRY 120 SPRAY/16 GM NASL SCH (09:44)
[2016-09-02] MEDS: DOCUSATE SODIUM 100 MG CAPSULE PO SCH ×2 (09:44→17:16)
[2016-09-02] MEDS: RANITIDINE 150 MG PO SCH ×2 (09:44→17:18)
[2016-09-02] MEDS: LEVALBUTEROL HCL NEB 0.63 MG/3 ML AMPUL NEB SCH (09:52)
--- NOTE | 2016-09-02 16:31 | PDOC PROGRESS REPORT ---
Subjective Progress Note for:: 09/02/16 Subjective:: Patient was seen by the bedside, he has baseline dementia, the spouse was in the routine she expresses concern about the fluctuation in the blood pressure, the blood pressure is more on the high side, the intravenous normal saline will be discontinued. He was admitted because of Escherichia coli septicemia Physical Exam Vital Signs: Temp Pulse Resp BP Pulse Ox 99.1 F 85 18 169/72 H 99 09/02/16 15:20 09/02/16 15:20 09/02/16 15:20 09/02/16 15:20 09/02/16 15:20 Intake & Output 09/01/16 09/02/16 09/03/16 06:59 06:59 06:59 Intake Total 2048 1701 463 Output Total 1575 1675 550 Balance 473 26 -87 Weight 82.5 kg 82.3 kg General appearance: PRESENT: no acute distress Eye exam: PRESENT: PERRLA Respiratory exam: PRESENT: clear to auscultation madai Cardiovascular exam: PRESENT: +S1, +S2 Results Laboratory Results: 09/02/16 04:19 09/01/16 04:44 09/01/16 09/01/16 09/02/16 04:44 17:20 04:19 WBC 9.3 RBC 2.78 L Hgb 8.1 L Hct 24.5 L MCV 88 MCH 29.1 MCHC 33.0 RDW 15.0 H Plt Count 223 Seg Neutrophils % 86.5 H Lymphocytes % 5.7 L Monocytes % 7.8 Eosinophils % 0.0 Basophils % 0.0 Absolute Neutrophils 8.1 Absolute Lymphocytes 0.5 Absolute Monocytes 0.7 Absolute Eosinophils 0.0 Absolute Basophils 0.0 Transferrin 187 L Stool Occult Blood NEGATIVE Impressions: Chest X-Ray 08/29/16 00:00 IMPRESSION: Obstructive lung disease Pulmonary vascular prominence with few increased interstitial markings at the left could reflect fluid overload or congestive failure. Early or developing left basilar pneumonia could not entirely be excluded Assessment & Plan - Diagnosis (1) Anemia of chronic disease Is this a current diagnosis for this admission?: Yes (2) COPD (chronic obstructive pulmonary disease) Qualifiers: COPD type: unspecified COPD Qualified Code(s): J44.9 - Chronic obstructive pulmonary disease, unspecified Is this a current diagnosis for this admission?: Yes (3) Dementia Qualifiers: Dementia type: unspecified type Is this a current diagnosis for this admission?: Yes (4) Sepsis syndrome Is this a current diagnosis for this admission?: Yes (5) Urinary tract infection Qualifiers: Hematuria presence: without hematuria Is this a current diagnosis for this admission?: Yes (6) Escherichia coli septicemia Is this a current diagnosis for this admission?: YesPlan: Patient will continue IV antibiotic
[2016-09-02] MEDS: ACETAMINOPHEN 325 MG TABLET PO PRN (17:16)
[2016-09-02] MEDS ORDERED: ACETAMINOPHEN 325 MG TABLET ONE (17:17)
[2016-09-02] MEDS ORDERED: ACETAMINOPHEN 325 MG TABLET PO PRN (18:47)
[2016-09-02] MEDS: IPRATROPIUM/ALBUTEROL 0.5-2.5 MG/3 ML AMPUL NEB PRN (18:56)
[2016-09-02] MEDS: Donepezil Hcl [Aricept] 23 MG PO SCH ×2 (20:00→20:30)
[2016-09-02] MEDS: LATANOPROST 0.005% OPH SOLN 2.5 ML OS SCH (21:15)
[2016-09-02] MEDS: SIMVASTATIN 10 MG TABLET PO SCH (21:17)
[2016-09-03] MEDS: CEFAZOLIN SODIUM 1 GM in DEXTROSE 5%-WATER 50 ML IV SCH ×4 (00:03→18:17)
[2016-09-03] MEDS: METHYLPREDNISOLONE INJ 40 MG/1 ML SDV IV SCH ×3 (06:02→21:10)
[2016-09-03] MEDS: LEVOTHYROXINE SODIUM 0.075 MG TABLET PO SCH (06:02)
[2016-09-03] MEDS: LEVALBUTEROL HCL NEB 0.63 MG/3 ML AMPUL NEB SCH (09:22)
[2016-09-03] MEDS: MULTIVITAMIN TABLET PO SCH (09:54)
[2016-09-03] MEDS: FINASTERIDE 5 MG TABLET PO SCH (09:54)
[2016-09-03] MEDS: DOCUSATE SODIUM 100 MG CAPSULE PO SCH ×2 (09:54→18:17)
[2016-09-03] MEDS: DOXAZOSIN MESYLATE 4 MG TABLET PO SCH (09:54)
[2016-09-03] MEDS: CALCIUM CARBONATE 250 MG/VITAMIN D3 125 UNIT TABLET PO SCH (09:54)
[2016-09-03] MEDS: ASPIRIN 81 MG TABLET, CHEWABLE PO SCH (09:54)
[2016-09-03] MEDS: CITALOPRAM HYDROBROMIDE 20 MG TABLET PO SCH (09:55)
[2016-09-03] MEDS: FLUTICASONE NASAL SPRAY 50 MCG/SPRY 120 SPRAY/16 GM NASL SCH (09:56)
[2016-09-03] MEDS: Memantine Hcl [Namenda Xr] 28 MG PO SCH (10:00)
[2016-09-03] MEDS: ENOXAPARIN SODIUM INJ 40 MG/0.4 ML DISP.SYRIN SUBCUT SCH (10:00)
[2016-09-03] MEDS: RANITIDINE 150 MG PO SCH ×2 (10:00→18:00)
[2016-09-03] MEDS: ASCORBIC ACID 500 MG TABLET PO SCH (10:02)
[2016-09-03] MEDS ORDERED: LABETALOL HCL INJ 20 MG/4 ML DISP.SYRIN IV PRN (16:50)
--- NOTE | 2016-09-03 16:54 | PDOC PROGRESS REPORT ---
Subjective Subjective:: Patient seen by the bedside, the blood pressure has been high. This could be from the Solu-Medrol yesterday. The IV fluid was discontinued a be started on a when necessary labetalol to control blood pressure and we reduce further down the dose of Solu-Medrol Physical Exam Vital Signs: Temp Pulse Resp BP Pulse Ox 98.9 F 90 22 H 129/72 H 96 09/03/16 11:30 09/03/16 11:30 09/03/16 11:30 09/03/16 11:30 09/03/16 11:30 Intake & Output 09/02/16 09/03/16 09/04/16 06:59 06:59 06:59 Intake Total 1701 1178 200 Output Total 1675 5865 700 Balance Weight 82.3 kg 80.6 kg General appearance: PRESENT: no acute distress Eye exam: PRESENT: PERRLA Respiratory exam: PRESENT: decreased breath sounds Cardiovascular exam: PRESENT: +S1, +S2 GI/Abdominal exam: PRESENT: soft Results Laboratory Results: 09/02/16 04:19 09/01/16 04:44 Impressions: Chest X-Ray 08/29/16 00:00 IMPRESSION: Obstructive lung disease Pulmonary vascular prominence with few increased interstitial markings at the left could reflect fluid overload or congestive failure. Early or developing left basilar pneumonia could not entirely be excluded Assessment & Plan - Diagnosis (1) Anemia of chronic disease Is this a current diagnosis for this admission?: Yes (2) COPD (chronic obstructive pulmonary disease) Qualifiers: COPD type: unspecified COPD Qualified Code(s): J44.9 - Chronic obstructive pulmonary disease, unspecified Is this a current diagnosis for this admission?: Yes (3) Dementia Qualifiers: Dementia type: unspecified type Is this a current diagnosis for this admission?: Yes (4) Sepsis syndrome Is this a current diagnosis for this admission?: Yes (5) Urinary tract infection Qualifiers: Hematuria presence: without hematuria Is this a current diagnosis for this admission?: Yes (6) Escherichia coli septicemia Is this a current diagnosis for this admission?: Yes (7) Hypertension Qualifiers: Hypertension type: other secondary hypertension Qualified Code(s): I15.8 - Other secondary hypertension Is this a current diagnosis for this admission?: YesPlan: This is probably due to combination of Solu-Medrol and other causes, stat when necessary labetalol to 2 MG IV every 4 hour when necessary
[2016-09-03] MEDS: IPRATROPIUM/ALBUTEROL 0.5-2.5 MG/3 ML AMPUL NEB PRN (19:43)
[2016-09-03] MEDS: Donepezil Hcl [Aricept] 23 MG PO SCH (20:15)
[2016-09-03] MEDS: SIMVASTATIN 10 MG TABLET PO SCH (21:10)
[2016-09-03] MEDS: LATANOPROST 0.005% OPH SOLN 2.5 ML OS SCH (21:10)
[2016-09-04] MEDS: CEFAZOLIN SODIUM 1 GM in DEXTROSE 5%-WATER 50 ML IV SCH ×2 (00:30→05:32)
[2016-09-04] MEDS: LEVOTHYROXINE SODIUM 0.075 MG TABLET PO SCH (05:31)
[2016-09-04] MEDS: METHYLPREDNISOLONE INJ 40 MG/1 ML SDV IV SCH ×3 (05:32→21:40)
[2016-09-04] MEDS: LEVALBUTEROL HCL NEB 0.63 MG/3 ML AMPUL NEB SCH (07:56)
--- NOTE | 2016-09-04 08:35 | PDOC PROGRESS REPORT ---
Subjective Progress Note for:: 09/04/16 Subjective:: No reported fever or chills. Coughing spells has improved. No observed chest discomfort. No vomiting or diarrhea. Tolerating oral feeding. Remain on 4L/min via nasal cannula. Physical Exam Vital Signs: Temp Pulse Resp BP Pulse Ox 97.8 F 75 16 159/77 H 96 09/04/16 03:52 09/04/16 07:57 09/04/16 07:57 09/04/16 03:52 09/04/16 07:57 Intake & Output 09/03/16 09/04/16 09/05/16 06:59 06:59 06:59 Intake Total 1178 1130 Output Total 2875 2125 Balance -1847 -995 Weight 80.6 kg 78.6 kg Physical Exam: General appearance: PRESENT: cooperative, face tent in use. Head exam: PRESENT: atraumatic, normocephalic Eye exam: PRESENT: conjunctiva pink, EOMI, PERRLA Mouth exam: PRESENT: moist Respiratory exam: PRESENT: crackles, rhonchi, wheezes Cardiovascular exam: PRESENT: RRR. ABSENT: diastolic murmur, rubs, systolic murmur GI/Abdominal exam: PRESENT: normal bowel sounds, soft. ABSENT: distended, guarding, mass, organolmegaly, rebound, tenderness Extremities exam: PRESENT: full ROM Musculoskeletal exam: PRESENT: deformity - related to arthritis, full ROM Neurological exam: PRESENT: altered - due to dementia Psychiatric exam: PRESENT: other - limited assessment due to dementia Skin exam: PRESENT: dry, intact, warm. ABSENT: cyanosis, rash Results Laboratory Results: 09/02/16 04:19 09/01/16 04:44 Impressions: Chest X-Ray 08/29/16 00:00 IMPRESSION: Obstructive lung disease Pulmonary vascular prominence with few increased interstitial markings at the left could reflect fluid overload or congestive failure. Early or developing left basilar pneumonia could not entirely be excluded Assessment & Plan - Diagnosis (1) Escherichia coli septicemia Is this a current diagnosis for this admission?: YesPlan: D/C IV Cefazolin coverage. Start on Cefuroxime 500 mg po bid.Monitor CBC indices. (2) COPD (chronic obstructive pulmonary disease) Qualifiers: COPD type: unspecified COPD Qualified Code(s): J44.9 - Chronic obstructive pulmonary disease, unspecified Is this a current diagnosis for this admission?: YesPlan: Continue current medication management. Patient will be discharged home with hospital bed to aid in keeping his head angle at or above 30 degree. This will assist in the management of his COPD. Due to his advance dementia, his spouse is capable of operating the device and she will assist in his care at home. Also , he will need a bedside commode due to his confinement to single level at home and not able to make it to his bathroom. (3) Dementia Qualifiers: Dementia type: unspecified type Is this a current diagnosis for this admission?: Yes (4) Sepsis syndrome Is this a current diagnosis for this admission?: YesPlan: D/C Cefazolin. Start on Cefuroxime 500 mg po bid. (5) Urinary tract infection Qualifiers: Hematuria presence: without hematuria Is this a current diagnosis for this admission?: YesPlan: D/C IV Cefazolin. Start on Cefuroxime 500 mg p.o bid.coverage. (6) Hypokalemia due to loss of potassium Is this a current diagnosis for this admission?: No (7) Anemia of chronic disease Is this a current diagnosis for this admission?: YesPlan: Obtain CBC with diff. If hemoglobin is less than 8 gm /dL consider transfusion with PRBC. - Time Time Spent with patient: 25-34 minutes Medications reviewed and adjusted accordingly: Yes Anticipated discharge: Home with Homehealth Within: within 48 hours - Inpatient Certification Medical Necessity: Need For Continuous Telemetry Monitoring, Need for IV Antibiotics, Risk of Complication if Not Cared For in Hospital Post Hospital Care: D/C Hay Stacker Documentation - Plan Summary Plan Summary: See attending physician orders.
[2016-09-04 09:32] LABS: HEMATOCRIT 28.3 % (37.9-51.0); HEMOGLOBIN 9.1 g/dL (13.5-17.0); MEAN CORPUSCULAR HEMOGLOBIN 28.5 pg (27.0-33.4); MEAN CORPUSCULAR HGB CONC 32.1 g/dL (32.0-36.0); MEAN CORPUSCULAR VOLUME 89 fl (80-97); RED BLOOD COUNT 3.19 10^6/uL (4.35-5.55); RED CELL DISTRIBUTION WIDTH 15.8 % (11.5-14.0); WHITE BLOOD COUNT 14.5 10^3/uL (4.0-10.5)
[2016-09-04 09:54] LABS: ANION GAP 6 (5-19); BLOOD UREA NITROGEN 18 mg/dL (7-20); CALCIUM 8.8 mg/dL (8.4-10.2); CARBON DIOXIDE 36 mmol/L (22-30); CHLORIDE 95 mmol/L (98-107); CREATININE RESULT 0.63 mg/dL (0.52-1.25); GLUCOSE 210 mg/dL (75-110); POTASSIUM 4.2 mmol/L (3.6-5.0)
[2016-09-04 09:59] LABS: ANISOCYTOSIS SLIGHT; BAND NEUTROPHILS % (MANUAL) 1 % (3-5); BASOPHILS % (MANUAL) 0 % (0-2); EOSINOPHILS % (MANUAL) 0 % (0-6); HYPOCHROMASIA SLIGHT; LYMPHOCYTES % (MANUAL) 5 % (13-45); PLATELET CLUMPS PRESENT; TOTAL CELLS COUNTED 100; TOXIC GRANULATION SLIGHT
[2016-09-04 10:00] LABS: OVALOCYTES 1+; POIKILOCYTOSIS 1+
[2016-09-04] MEDS: Memantine Hcl [Namenda Xr] 28 MG PO SCH (10:00)
[2016-09-04] MEDS: RANITIDINE 150 MG PO SCH ×2 (10:00→16:32)
[2016-09-04] MEDS: ENOXAPARIN SODIUM INJ 40 MG/0.4 ML DISP.SYRIN SUBCUT SCH (10:06)
[2016-09-04] MEDS: CALCIUM CARBONATE 250 MG/VITAMIN D3 125 UNIT TABLET PO SCH (10:08)
[2016-09-04] MEDS: DOCUSATE SODIUM 100 MG CAPSULE PO SCH ×2 (10:09→17:29)
[2016-09-04] MEDS: CEFUROXIME 500 MG TABLET PO SCH ×2 (10:09→17:28)
[2016-09-04] MEDS: ASPIRIN 81 MG TABLET, CHEWABLE PO SCH (10:09)
[2016-09-04] MEDS: MULTIVITAMIN TABLET PO SCH (10:09)
[2016-09-04] MEDS: DOXAZOSIN MESYLATE 4 MG TABLET PO SCH (10:10)
[2016-09-04] MEDS: FINASTERIDE 5 MG TABLET PO SCH (10:10)
[2016-09-04] MEDS: CITALOPRAM HYDROBROMIDE 20 MG TABLET PO SCH (10:10)
[2016-09-04] MEDS: ASCORBIC ACID 500 MG TABLET PO SCH (10:11)
[2016-09-04] MEDS: FLUTICASONE NASAL SPRAY 50 MCG/SPRY 120 SPRAY/16 GM NASL SCH (10:11)
[2016-09-04] MEDS: IPRATROPIUM/ALBUTEROL 0.5-2.5 MG/3 ML AMPUL NEB PRN (18:43)
[2016-09-04] MEDS: SIMVASTATIN 10 MG TABLET PO SCH (21:40)
[2016-09-04] MEDS: LATANOPROST 0.005% OPH SOLN 2.5 ML OS SCH (21:41)
[2016-09-05] MEDS: METHYLPREDNISOLONE INJ 40 MG/1 ML SDV IV SCH ×3 (05:47→21:36)
[2016-09-05] MEDS: LEVOTHYROXINE SODIUM 0.075 MG TABLET PO SCH (05:47)
[2016-09-05] MEDS: LEVALBUTEROL HCL NEB 0.63 MG/3 ML AMPUL NEB SCH (07:44)
[2016-09-05] MEDS: ENOXAPARIN SODIUM INJ 40 MG/0.4 ML DISP.SYRIN SUBCUT SCH (09:42)
[2016-09-05] MEDS: DOCUSATE SODIUM 100 MG CAPSULE PO SCH ×2 (09:42→17:11)
[2016-09-05] MEDS: ASPIRIN 81 MG TABLET, CHEWABLE PO SCH (09:42)
[2016-09-05] MEDS: DOXAZOSIN MESYLATE 4 MG TABLET PO SCH (09:43)
[2016-09-05] MEDS: ASCORBIC ACID 500 MG TABLET PO SCH (09:43)
[2016-09-05] MEDS: CEFUROXIME 500 MG TABLET PO SCH ×2 (09:46→17:11)
[2016-09-05] MEDS: RANITIDINE 150 MG PO SCH ×2 (09:47→20:45)
[2016-09-05] MEDS: FINASTERIDE 5 MG TABLET PO SCH (09:47)
[2016-09-05] MEDS: MULTIVITAMIN TABLET PO SCH (09:47)
[2016-09-05] MEDS: CALCIUM CARBONATE 250 MG/VITAMIN D3 125 UNIT TABLET PO SCH (09:47)
[2016-09-05] MEDS: Memantine Hcl [Namenda Xr] 28 MG PO SCH (09:47)
[2016-09-05] MEDS: CITALOPRAM HYDROBROMIDE 20 MG TABLET PO SCH (09:48)
[2016-09-05] MEDS: FLUTICASONE NASAL SPRAY 50 MCG/SPRY 120 SPRAY/16 GM NASL SCH (09:51)
[2016-09-05] MEDS: LEVOFLOXACIN 500 MG/D5W RTU 500 MG/100 ML RTUPB IV SCH (16:04)
--- NOTE | 2016-09-05 17:02 | PDOC PROGRESS REPORT ---
Subjective Progress Note for:: 09/05/16 Subjective:: Patient continue to demonstrate significant chest congestion. No observed chest discomfort. No vomiting or diarrhea. Tolerating oral feeding with concern for possible aspiration. No reported fever or chills. Coughing spells has improved since last clinical assessment but with ineffective expectoration. Remain on 4L/ min via nasal cannula. Physical Exam Vital Signs: Temp Pulse Resp BP Pulse Ox 98.6 F 88 16 123/51 L 96 09/05/16 11:57 09/05/16 15:19 09/05/16 15:19 09/05/16 11:57 09/05/16 15:19 Intake & Output 09/04/16 09/05/16 09/06/16 06:59 06:59 06:59 Intake Total 1130 1131 268 Output Total 8465 8883 1999 Balance -819 -5709 -6085 Weight 78.6 kg 78.3 kg Physical Exam: General appearance: PRESENT: cooperative, face tent in use. Head exam: PRESENT: atraumatic, normocephalic Eye exam: PRESENT: conjunctiva pink, EOMI, PERRLA Mouth exam: PRESENT: moist Respiratory exam: PRESENT: scattered crackles, minimal rhonchi and wheezes Cardiovascular exam: PRESENT: RRR. ABSENT: diastolic murmur, rubs, systolic murmur GI/Abdominal exam: PRESENT: normal bowel sounds, soft. ABSENT: distended, guarding, mass, organomegaly, rebound, tenderness Extremities exam: PRESENT: full ROM Musculoskeletal exam: PRESENT: deformity - related to arthritis, full ROM Neurological exam: PRESENT: altered - due to dementia Psychiatric exam: PRESENT: other - limited assessment due to dementia Skin exam: PRESENT: dry, intact, warm. ABSENT: cyanosis, rash Results Laboratory Results: 09/04/16 09:22 09/04/16 09:22 Impressions: Chest X-Ray 09/05/16 00:00 IMPRESSION: Underlying COPD Pulmonary vascular prominence, trace left pleural effusion worrisome for fluid overload There is left lower lobe and medial right base consolidation atelectasis versus pneumonia. Assessment & Plan - Diagnosis (1) Escherichia coli septicemia Is this a current diagnosis for this admission?: Yes (2) COPD (chronic obstructive pulmonary disease) Qualifiers: COPD type: unspecified COPD Qualified Code(s): J44.9 - Chronic obstructive pulmonary disease, unspecified Is this a current diagnosis for this admission?: Yes (3) Dementia Qualifiers: Dementia type: unspecified type Is this a current diagnosis for this admission?: Yes (4) Sepsis syndrome Is this a current diagnosis for this admission?: Yes (5) Urinary tract infection Qualifiers: Hematuria presence: without hematuria Is this a current diagnosis for this admission?: Yes (6) Hypokalemia due to loss of potassium Is this a current diagnosis for this admission?: No (7) Anemia of chronic disease Is this a current diagnosis for this admission?: Yes (8) Aspiration pneumonia Is this a current diagnosis for this admission?: NoPlan: Start on IV Levofloxacin coverage in view of chest x ray findings and associated worsening leukocytosis. 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
[2016-09-05] MEDS: IPRATROPIUM/ALBUTEROL 0.5-2.5 MG/3 ML AMPUL NEB PRN (18:44)
[2016-09-05] MEDS: Donepezil Hcl [Aricept] 23 MG PO SCH (20:30)
[2016-09-05] MEDS: SIMVASTATIN 10 MG TABLET PO SCH (21:36)
[2016-09-05] MEDS: LATANOPROST 0.005% OPH SOLN 2.5 ML OS SCH (21:36)
[2016-09-06 04:55] LABS: ABSOLUTE EOSINOPHILS # (AUTO) 0.1 10^3/uL (0.0-0.6); ABSOLUTE LYMPHOCYTES (AUTO) 0.8 10^3/uL (0.5-4.7); ABSOLUTE MONOCYTES (AUTO) 0.8 10^3/uL (0.1-1.4); ABSOLUTE NEUT (AUTO) 12.6 10^3/uL (1.7-8.2); EOSINOPHILS % (AUTO) 0.4 % (0-6); HEMATOCRIT 26.4 % (37.9-51.0); HEMOGLOBIN 8.7 g/dL (13.5-17.0); HGB HCT DIFFERENCE -0.3; LYMPHOCYTES % (AUTO) 5.5 % (13-45); MEAN CORPUSCULAR HEMOGLOBIN 28.8 pg (27.0-33.4); MEAN CORPUSCULAR HGB CONC 33.1 g/dL (32.0-36.0); MEAN CORPUSCULAR VOLUME 87 fl (80-97); MONOCYTES % (AUTO) 5.8 % (3-13); RED BLOOD COUNT 3.03 10^6/uL (4.35-5.55); RED CELL DISTRIBUTION WIDTH 15.1 % (11.5-14.0); SEGMENTED NEUTROPHILS % (AUTO) 88.3 % (42-78); WHITE BLOOD COUNT 14.3 10^3/uL (4.0-10.5)
[2016-09-06 05:09] LABS: ALANINE AMINOTRANSFERASE 36 U/L (21-72); ALBUMIN 2.7 g/dL (3.5-5.0); ALKALINE PHOSPHATASE 50 U/L (38-126); ANION GAP 5 (5-19); ASPARTATE AMINO TRANSFERASE 15 U/L (17-59); BILIRUBIN,TOTAL 0.4 mg/dL (0.2-1.3); BLOOD UREA NITROGEN 19 mg/dL (7-20); CALCIUM 8.2 mg/dL (8.4-10.2); CARBON DIOXIDE 34 mmol/L (22-30); CHLORIDE 98 mmol/L (98-107); CREATININE RESULT 0.71 mg/dL (0.52-1.25); GLUCOSE 103 mg/dL (75-110); POTASSIUM 4.3 mmol/L (3.6-5.0); SODIUM 136.5 mmol/L (137-145); TOTAL PROTEIN 4.1 g/dL (6.3-8.2)
[2016-09-06] MEDS: METHYLPREDNISOLONE INJ 40 MG/1 ML SDV IV SCH ×3 (05:25→21:22)
[2016-09-06] MEDS: LEVOTHYROXINE SODIUM 0.075 MG TABLET PO SCH (05:25)
[2016-09-06] MEDS: LEVALBUTEROL HCL NEB 0.63 MG/3 ML AMPUL NEB SCH (08:05)
[2016-09-06] MEDS: ENOXAPARIN SODIUM INJ 40 MG/0.4 ML DISP.SYRIN SUBCUT SCH (08:46)
[2016-09-06] MEDS: RANITIDINE 150 MG PO SCH ×2 (10:00→17:00)
[2016-09-06] MEDS: Memantine Hcl [Namenda Xr] 28 MG PO SCH (10:10)
[2016-09-06] MEDS: FLUTICASONE NASAL SPRAY 50 MCG/SPRY 120 SPRAY/16 GM NASL SCH (10:36)
[2016-09-06] MEDS: ASCORBIC ACID 500 MG TABLET PO SCH (10:41)
[2016-09-06] MEDS: ASPIRIN 81 MG TABLET, CHEWABLE PO SCH (10:41)
[2016-09-06] MEDS: DOCUSATE SODIUM 100 MG CAPSULE PO SCH ×2 (10:41→17:53)
[2016-09-06] MEDS: DOXAZOSIN MESYLATE 4 MG TABLET PO SCH (10:42)
[2016-09-06] MEDS: MULTIVITAMIN TABLET PO SCH (10:42)
[2016-09-06] MEDS: CITALOPRAM HYDROBROMIDE 20 MG TABLET PO SCH (10:42)
[2016-09-06] MEDS: CALCIUM CARBONATE 250 MG/VITAMIN D3 125 UNIT TABLET PO SCH (10:42)
[2016-09-06] MEDS: FINASTERIDE 5 MG TABLET PO SCH (10:42)
[2016-09-06] MEDS: CEFUROXIME 500 MG TABLET PO SCH ×2 (10:43→17:53)
--- NOTE | 2016-09-06 13:04 | PDOC PROGRESS REPORT ---
Subjective Progress Note for:: 09/06/16 Subjective:: There is persistent swallowing difficulty with increase risk of aspiration with thicken liquid. Spouse expressed wish to continue oral feeding despite explanation of aspiration risk and pneumonia. Patient continue to demonstrate chest congestion. No reported chest discomfort, fever or chills. No vomiting or diarrhea. Remain on 4L/min via nasal cannula. Physical Exam Vital Signs: Temp Pulse Resp BP Pulse Ox 98.3 F 86 15 114/46 L 96 09/06/16 07:23 09/06/16 11:30 09/06/16 11:30 09/06/16 11:30 09/06/16 11:30 Intake & Output 09/05/16 09/06/16 09/07/16 06:59 06:59 06:59 Intake Total 1131 783 Output Total 2629 1175 Balance -1494 -2892 Weight 78.3 kg 75.3 kg Physical Exam: General appearance: PRESENT: cooperative, supplemental oxygen via nasal cannula at 2L/min in use. Head exam: PRESENT: atraumatic, normocephalic Eye exam: PRESENT: conjunctiva pink, EOMI, PERRLA Mouth exam: PRESENT: moist Respiratory exam: PRESENT: scattered crackles. ABSENT: rhonchi and wheezes Cardiovascular exam: PRESENT: RRR. ABSENT: diastolic murmur, rubs, systolic murmur GI/Abdominal exam: PRESENT: normal bowel sounds, soft. ABSENT: distended, guarding, mass, organomegaly, rebound, tenderness Extremities exam: PRESENT: full ROM Musculoskeletal exam: PRESENT: deformity - related to arthritis, full ROM Neurological exam: PRESENT: altered - due to dementia Psychiatric exam: PRESENT: other - limited assessment due to dementia Skin exam: PRESENT: dry, intact, warm. ABSENT: cyanosis, rash Results Laboratory Results: 09/06/16 04:13 09/06/16 04:13 09/06/16 09/06/16 04:13 04:13 WBC 14.3 H RBC 3.03 L Hgb 8.7 L Hct 26.4 L MCV 87 MCH 28.8 MCHC 33.1 RDW 15.1 H Plt Count 299 Seg Neutrophils % 88.3 H Lymphocytes % 5.5 L Monocytes % 5.8 Eosinophils % 0.4 Basophils % 0.0 Absolute Neutrophils 12.6 H Absolute Lymphocytes 0.8 Absolute Monocytes 0.8 Absolute Eosinophils 0.1 Absolute Basophils 0.0 Sodium 136.5 L Potassium 4.3 Chloride 98 Carbon Dioxide 34 H Anion Gap 5 BUN 19 Creatinine 0.71 Est GFR ( Amer) > 60 Est GFR (Non-Af Amer) > 60 Glucose 103 Calcium 8.2 L Total Bilirubin 0.4 AST 15 L ALT 36 Alkaline Phosphatase 50 Total Protein 4.1 L Albumin 2.7 L Impressions: Chest X-Ray 09/05/16 00:00 IMPRESSION: Underlying COPD Pulmonary vascular prominence, trace left pleural effusion worrisome for fluid overload There is left lower lobe and medial right base consolidation atelectasis versus pneumonia. Assessment & Plan - Diagnosis (1) Escherichia coli septicemia Is this a current diagnosis for this admission?: Yes (2) COPD (chronic obstructive pulmonary disease) Qualifiers: COPD type: unspecified COPD Qualified Code(s): J44.9 - Chronic obstructive pulmonary disease, unspecified Is this a current diagnosis for this admission?: Yes (3) Dementia Qualifiers: Dementia type: unspecified type Is this a current diagnosis for this admission?: YesPlan: Continue supportive care management. His cognitive limitation will limit his participation in self care and rehabilitation efforts. (4) Sepsis syndrome Is this a current diagnosis for this admission?: Yes (5) Urinary tract infection Qualifiers: Hematuria presence: without hematuria Is this a current diagnosis for this admission?: Yes (6) Hypokalemia due to loss of potassium Is this a current diagnosis for this admission?: No (7) Anemia of chronic disease Is this a current diagnosis for this admission?: YesPlan: Continue to monitor CBC with diff. indices and consider transfusion with PRBC if clinically indicated. (8) Aspiration pneumonia Is this a current diagnosis for this admission?: NoPlan: Continue IV Levofloxacin coverage. 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
[2016-09-06] MEDS: LEVOFLOXACIN 500 MG/D5W RTU 500 MG/100 ML RTUPB IV SCH (15:32)
[2016-09-06] MEDS: Donepezil Hcl [Aricept] 23 MG PO SCH (21:00)
[2016-09-06] MEDS: SIMVASTATIN 10 MG TABLET PO SCH (21:22)
[2016-09-06] MEDS: LATANOPROST 0.005% OPH SOLN 2.5 ML OS SCH (21:23)
[2016-09-07] MEDS: IPRATROPIUM/ALBUTEROL 0.5-2.5 MG/3 ML AMPUL NEB PRN (03:19)
[2016-09-07] MEDS: LEVOTHYROXINE SODIUM 0.075 MG TABLET PO SCH (06:22)
[2016-09-07] MEDS: METHYLPREDNISOLONE INJ 40 MG/1 ML SDV IV SCH (06:22)
[2016-09-07] MEDS: LEVALBUTEROL HCL NEB 0.63 MG/3 ML AMPUL NEB SCH (08:10)
[2016-09-07] MEDS: ENOXAPARIN SODIUM INJ 40 MG/0.4 ML DISP.SYRIN SUBCUT SCH (08:29)
[2016-09-07] MEDS: RANITIDINE 150 MG PO SCH ×2 (09:30→18:00)
[2016-09-07] MEDS: Memantine Hcl [Namenda Xr] 28 MG PO SCH (09:30)
[2016-09-07] MEDS ORDERED: LEVOFLOXACIN 500 MG TABLET PO SCH ×2 (10:00→15:00)
[2016-09-07] MEDS: CEFUROXIME 500 MG TABLET PO SCH ×2 (10:34→17:43)
[2016-09-07] MEDS: DOXAZOSIN MESYLATE 4 MG TABLET PO SCH (10:34)
[2016-09-07] MEDS: MULTIVITAMIN TABLET PO SCH (10:35)
[2016-09-07] MEDS: ASCORBIC ACID 500 MG TABLET PO SCH (10:35)
[2016-09-07] MEDS: FINASTERIDE 5 MG TABLET PO SCH (10:35)
[2016-09-07] MEDS: DOCUSATE SODIUM 100 MG CAPSULE PO SCH ×2 (10:36→17:42)
[2016-09-07] MEDS: CITALOPRAM HYDROBROMIDE 20 MG TABLET PO SCH (10:36)
[2016-09-07] MEDS: ASPIRIN 81 MG TABLET, CHEWABLE PO SCH (10:36)
[2016-09-07] MEDS: CALCIUM CARBONATE 250 MG/VITAMIN D3 125 UNIT TABLET PO SCH (10:36)
[2016-09-07] MEDS: FLUTICASONE NASAL SPRAY 50 MCG/SPRY 120 SPRAY/16 GM NASL SCH (10:37)
--- NOTE | 2016-09-07 13:44 | PDOC PROGRESS REPORT ---
Subjective Progress Note for:: 09/07/16 Subjective:: There is reported improvement in his breathing. No reported chest discomfort, fever or chills. No vomiting or diarrhea. Remain on 4L/min via nasal cannula. Tolerating oral feeding. Remain on Levofloxacin and Cefuroxime coverage. Physical Exam Vital Signs: Temp Pulse Resp BP Pulse Ox 98.5 F 106 H 19 87/55 L 100 09/07/16 11:43 09/07/16 11:43 09/07/16 11:43 09/07/16 11:43 09/07/16 11:43 Intake & Output 09/06/16 09/07/16 09/08/16 06:59 06:59 06:59 Intake Total 783 347 237 Output Total 3670 2725 250 Balance -2892 -2378 -13 Weight 75.3 kg 76.4 kg Physical Exam: General appearance: PRESENT: cooperative, supplemental oxygen via nasal cannula at 2L/min in use. Head exam: PRESENT: atraumatic, normocephalic Eye exam: PRESENT: conjunctiva pink, EOMI, PERRLA Mouth exam: PRESENT: moist Respiratory exam: PRESENT: improved scattered crackles. ABSENT: rhonchi and wheezes Cardiovascular exam: PRESENT: RRR. ABSENT: diastolic murmur, rubs, systolic murmur GI/Abdominal exam: PRESENT: normal bowel sounds, soft. ABSENT: distended, guarding, mass, organomegaly, rebound, tenderness Extremities exam: PRESENT: full ROM Musculoskeletal exam: PRESENT: deformity - related to arthritis, full ROM Neurological exam: PRESENT: altered - due to dementia Psychiatric exam: PRESENT: other - limited assessment due to dementia Skin exam: PRESENT: dry, intact, warm. ABSENT: cyanosis, rash Results Laboratory Results: 09/06/16 04:13 09/06/16 04:13 Impressions: Chest X-Ray 09/05/16 00:00 IMPRESSION: Underlying COPD Pulmonary vascular prominence, trace left pleural effusion worrisome for fluid overload There is left lower lobe and medial right base consolidation atelectasis versus pneumonia. Assessment & Plan - Diagnosis (1) Escherichia coli septicemia Is this a current diagnosis for this admission?: YesPlan: Maintain on Levofloxacin and Cefuroxime coverage. (2) COPD (chronic obstructive pulmonary disease) Qualifiers: COPD type: unspecified COPD Qualified Code(s): J44.9 - Chronic obstructive pulmonary disease, unspecified Is this a current diagnosis for this admission?: YesPlan: D/C IV Solu Medrol. Continue other current medication management. (3) Dementia Qualifiers: Dementia type: unspecified type Is this a current diagnosis for this admission?: Yes (4) Sepsis syndrome Is this a current diagnosis for this admission?: Yes (5) Urinary tract infection Qualifiers: Hematuria presence: without hematuria Is this a current diagnosis for this admission?: YesPlan: Maintain on Levofloxacin and Cefuroxime coverage (6) Hypokalemia due to loss of potassium Is this a current diagnosis for this admission?: NoPlan: Obtain BMP for recheck post correction therapy. (7) Anemia of chronic disease Is this a current diagnosis for this admission?: Yes (8) Aspiration pneumonia Is this a current diagnosis for this admission?: NoPlan: Maintain on Levofloxacin and Cefuroxime coverage - Time Time Spent with patient: 25-34 minutes Medications reviewed and adjusted accordingly: Yes Anticipated discharge: Home with Homehealth Within: within 24 hours - Inpatient Certification Based on my medical assessment, after consideration of the patient's comorbidities, presenting symptoms, or acuity I expect that the services needed warrant INPATIENT care.: Yes I certify that my determination is in accordance with my understanding of Medicare's requirements for reasonable and necessary INPATIENT services [42 CFR 412.3e].: Yes Medical Necessity: Need Close Monitoring Due to Risk of Patient Decompensation, Need For Continuous Telemetry Monitoring, Risk of Complication if Not Cared For in Hospital 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
[2016-09-07 14:24] LABS: ALANINE AMINOTRANSFERASE 33 U/L (21-72); ALBUMIN 2.8 g/dL (3.5-5.0); ALKALINE PHOSPHATASE 54 U/L (38-126); ANION GAP 5 (5-19); ASPARTATE AMINO TRANSFERASE 16 U/L (17-59); BILIRUBIN,TOTAL 0.3 mg/dL (0.2-1.3); BLOOD UREA NITROGEN 21 mg/dL (7-20); CARBON DIOXIDE 34 mmol/L (22-30); CHLORIDE 97 mmol/L (98-107); CREATININE RESULT 0.75 mg/dL (0.52-1.25); GLUCOSE 102 mg/dL (75-110); POTASSIUM 4.3 mmol/L (3.6-5.0); SODIUM 136.1 mmol/L (137-145); TOTAL PROTEIN 4.8 g/dL (6.3-8.2)
[2016-09-07 15:04] LABS: HEMATOCRIT 27.5 % (37.9-51.0); HEMOGLOBIN 9.1 g/dL (13.5-17.0); HGB HCT DIFFERENCE -0.2; MEAN CORPUSCULAR HGB CONC 32.9 g/dL (32.0-36.0); MEAN CORPUSCULAR VOLUME 88 fl (80-97); RED BLOOD COUNT 3.13 10^6/uL (4.35-5.55); RED CELL DISTRIBUTION WIDTH 15.7 % (11.5-14.0)
[2016-09-07 15:08] LABS: BASOPHILS % (MANUAL) 0 % (0-2); EOSINOPHILS % (MANUAL) 0 % (0-6); LYMPHOCYTES % (MANUAL) 11 % (13-45); TOTAL CELLS COUNTED 100
[2016-09-07 15:10] LABS: ANISOCYTOSIS 1+; HYPOCHROMASIA 1+; OVALOCYTES 1+; POIKILOCYTOSIS 1+; POLYCHROMASIA SLIGHT; SCHISTOCYTES SLIGHT; TOXIC GRANULATION 1+; TOXIC VACUOLATION PRESENT
[2016-09-07] MEDS: Donepezil Hcl [Aricept] 23 MG PO SCH (21:00)
[2016-09-07] MEDS: LATANOPROST 0.005% OPH SOLN 2.5 ML OS SCH (21:13)
[2016-09-07] MEDS: SIMVASTATIN 10 MG TABLET PO SCH (21:13)
[2016-09-08] MEDS: LEVOTHYROXINE SODIUM 0.075 MG TABLET PO SCH (06:42)
[2016-09-08 07:55] VITALS: BP 133/55
[2016-09-08] MEDS: LEVALBUTEROL HCL NEB 0.63 MG/3 ML AMPUL NEB SCH (07:55)
[2016-09-08] MEDS: ENOXAPARIN SODIUM INJ 40 MG/0.4 ML DISP.SYRIN SUBCUT SCH (08:18)
--- NOTE | 2016-09-08 09:11 | PDOC DISCHARGE SUMMARY ---
General - Admit/Disc Date/PCP Admission Date/Primary Care Provider: 08/26/16 18:27 AURELIA BOLANOS Discharge Date: 09/08/16 - Discharge Diagnosis (1) Escherichia coli septicemia Is this a current diagnosis for this admission?: Yes (2) COPD (chronic obstructive pulmonary disease) Is this a current diagnosis for this admission?: Yes (3) Dementia Is this a current diagnosis for this admission?: Yes (4) Sepsis syndrome Is this a current diagnosis for this admission?: Yes (5) Urinary tract infection Is this a current diagnosis for this admission?: Yes (6) Hypokalemia due to loss of potassium Is this a current diagnosis for this admission?: No (7) Anemia of chronic disease Is this a current diagnosis for this admission?: Yes (8) Aspiration pneumonia Is this a current diagnosis for this admission?: No - Additional Information Resuscitation Status: Do Not Resuscitate Home Medications: Ascorbic Acid [Vitamin C] 1,000 mg PO DAILY 08/26/16 Aspirin [Aspirin 81 mg Chewable Tablet] 81 mg PO DAILY 08/26/16 Calcium Carbonate/Vitamin D3 [Caltrate 600 + D Soft Chew Tab] 1 tab PO DAILY Citalopram Hydrobromide [Celexa 20 mg Tablet] 20 mg PO DAILY 08/26/16 Donepezil HCl [Aricept] 23 mg PO DAILY 08/26/16 Doxazosin Mesylate [Cardura] 8 mg PO DAILY 08/26/16 Finasteride 5 mg PO DAILY 08/26/16 Fluticasone Propionate [Flonase Nasal Granger 50 Mcg/Granger 16 gm] 2 spray IN DAILY 08/26/16 Guaifenesin 200 mg PO PRN PRN 08/26/16 Ibuprofen 200 mg PO PRN PRN 08/26/16 Ipratropium/Albuterol Sulfate [Duoneb 3 ml Ampul] 1 appful IN PRN PRN 08/26/16 Latanoprost [Xalatan 0.005% Oph Soln 2.5 ml] 1 drop OS DAILY 08/26/16 Levothyroxine Sodium [Synthroid 0.075 mg Tablet] 0.075 mg PO DAILY 08/26/16 Memantine HCl [Namenda Xr] 28 mg PO DAILY 08/26/16 Multivits-Minerals/FA/Lycopene [One Daily For Men Tablet] 1 tab PO DAILY Ranitidine HCl [Zantac 150 mg Tablet] 150 mg PO BID 08/26/16 Simvastatin [Zocor 20 mg Tablet] 20 mg PO QHS 08/27/16 Cefuroxime Axetil [Ceftin 500 mg Tablet] 500 mg PO BID #14 tablet 09/08/16 Levofloxacin [Levaquin 500 mg Tablet] 500 mg PO DAILY@1500 #7 tablet 09/08/16 History of Present Illness History of Present Illness: ERIC COLLINS SR is a 81 year old male pt brought by family due to shivering and fever and not feeling well since last 2 days. pt also had uti last wk and was on amoxicillin and noticed since yesterday pt felt very weak and shivering. in er pt found urosepsis and start iv Rocephin and iv fluid. pt also have dementia and per since last 2 wk pt is non verbal and more declined condition. pt is er room alert and awake and shivering but no acute distress. Hospital Course Hospital Course: Patient hospital stay was complicated with E. coli urinary tract infection with septicemia. he was adequately covered with IV antibiotic as indicated on his culture sensitivity report. Due to general debility and dementia his participation on IADL and ADL were severely limited. Patient experienced aspiration issues with feeding and concern for aspiration pneumonitis and pneumonia due to associated worsening leukocytosis and x ray changes. He has been responsive to Cefuroxime and Levofloxacin coverage with improvement in his leukocytosis. He will be discharge home on same for 7 days. Patient will be discharged home with needed devices including hospital bed and bedside commode. Also, he will be discharged home with home health agency services for visiting nurse, physical therapy and personal financial representative. Physical Exam Vital Signs: Temp Pulse Resp BP Pulse Ox 99.0 F 91 18 133/55 H 97 09/08/16 07:54 09/08/16 07:55 09/08/16 07:55 09/08/16 07:54 09/08/16 07:55 Intake & Output 09/07/16 09/08/16 09/09/16 06:59 06:59 06:59 Intake Total 347 477 Output Total 1307 550 Balance -2378 -73 Weight 76.4 kg 70.5 kg Physical Exam: General appearance: PRESENT: cooperative, supplemental oxygen via nasal cannula at 2L/min in use. Head exam: PRESENT: atraumatic, normocephalic Eye exam: PRESENT: conjunctiva pink, EOMI, PERRLA Mouth exam: PRESENT: moist Respiratory exam: PRESENT: improved scattered crackles. ABSENT: rhonchi and wheezes Cardiovascular exam: PRESENT: RRR. ABSENT: diastolic murmur, rubs, systolic murmur GI/Abdominal exam: PRESENT: normal bowel sounds, soft. ABSENT: distended, guarding, mass, organomegaly, rebound, tenderness Extremities exam: PRESENT: full ROM Musculoskeletal exam: PRESENT: deformity - related to arthritis, full ROM Neurological exam: PRESENT: altered - due to dementia Psychiatric exam: PRESENT: other - limited assessment due to dementia Skin exam: PRESENT: dry, intact, warm. ABSENT: cyanosis, rash Results Laboratory Results: 09/07/16 13:55 09/07/16 13:55 09/07/16 09/07/16 13:55 13:55 WBC 12.0 H RBC 3.13 L Hgb 9.1 L Hct 27.5 L MCV 88 MCH 29.0 MCHC 32.9 RDW 15.7 H Plt Count 321 Seg Neutrophils % Not Reportable Lymphocytes % Not Reportable Monocytes % Not Reportable Eosinophils % Not Reportable Basophils % Not Reportable Absolute Neutrophils Not Reportable Absolute Lymphocytes Not Reportable Absolute Monocytes Not Reportable Absolute Eosinophils Not Reportable Absolute Basophils Not Reportable Sodium 136.1 L Potassium 4.3 Chloride 97 L Carbon Dioxide 34 H Anion Gap 5 BUN 21 H Creatinine 0.75 Est GFR ( Amer) > 60 Est GFR (Non-Af Amer) > 60 Glucose 102 Calcium 9.0 Total Bilirubin 0.3 AST 16 L ALT 33 Alkaline Phosphatase 54 Total Protein 4.8 L Albumin 2.8 L Impressions: Chest X-Ray 09/05/16 00:00 IMPRESSION: Underlying COPD Pulmonary vascular prominence, trace left pleural effusion worrisome for fluid overload There is left lower lobe and medial right base consolidation atelectasis versus pneumonia. Qualifiers PATEINT BEING DISCHARGED WITH ANY OF THE FOLLOWING DIAGNOSIS?: No Plan Discharge Plan: D/C home today with [facility] services. Follow up in office as instructed upon discharge. Time Spent: Less than 30 Minutes
[2016-09-08] MEDS: CEFUROXIME 500 MG TABLET PO SCH (10:18)
[2016-09-08] MEDS: DOCUSATE SODIUM 100 MG CAPSULE PO SCH (10:18)
[2016-09-08] MEDS: MULTIVITAMIN TABLET PO SCH (10:18)
[2016-09-08] MEDS: CALCIUM CARBONATE 250 MG/VITAMIN D3 125 UNIT TABLET PO SCH (10:19)
[2016-09-08] MEDS: CITALOPRAM HYDROBROMIDE 20 MG TABLET PO SCH (10:19)
[2016-09-08] MEDS: ASCORBIC ACID 500 MG TABLET PO SCH (10:19)
[2016-09-08] MEDS: FINASTERIDE 5 MG TABLET PO SCH (10:19)
[2016-09-08] MEDS: DOXAZOSIN MESYLATE 4 MG TABLET PO SCH (10:19)
[2016-09-08] MEDS: ASPIRIN 81 MG TABLET, CHEWABLE PO SCH (10:19)
[2016-09-08] MEDS: Memantine Hcl [Namenda Xr] 28 MG PO SCH (10:30)
[2016-09-08] MEDS: RANITIDINE 150 MG PO SCH (10:30)
[2016-09-08] MEDS: FLUTICASONE NASAL SPRAY 50 MCG/SPRY 120 SPRAY/16 GM NASL SCH (11:02)
== END 2016-09-08 14:59 | disposition home health service (06) | DRG 871 ==
LOC: ER 12:42 → EH 18:27 → 3N 22:16
PROVIDERS: ADMIT Family Medicine; ATTEND Internal Medicine Geriatric Medicine
PROC: 3E0F73Z Introduction of Anti-inflammatory into Respiratory Tract, Via Natural or Artificial Opening (ICD-10-PCS; principal; 2016-08-26)
DX: A41.51 Sepsis due to Escherichia coli [E. coli] (principal); J69.0 Pneumonitis due to inhalation of food and vomit; N39.0 Urinary tract infection, site not specified; J44.9 Chronic obstructive pulmonary disease, unspecified; E87.6 Hypokalemia; Z66 Do not resuscitate; M19.90 Unspecified osteoarthritis, unspecified site; D63.8 Anemia in other chronic diseases classified elsewhere; N40.0 Benign prostatic hyperplasia without lower urinary tract symptoms; G30.9 Alzheimer's disease, unspecified; F02.80 Dementia in other diseases classified elsewhere, unspecified severity, without behavioral disturbance, psychotic disturbance, mood disturbance, and anxiety; Z90.49 Acquired absence of other specified parts of digestive tract
CPT/HCPCS: 36415; 51702; 71010; 80048; 80053; 80076; 81001; 82272; 82607; 82728; 82746; 83540; 83550; 83605; 83735; 84466; 85025; 85045; 85610; 87040; 87077; 87086; 87088; 87186; 93005; 93010; 94640; 96365; 99285; G8978-GP; G8979-GP; G8996-GN; G8997-GN; G8998-GN; J0690; J0692; J0696; J1650; J1956; J2920; J3480; J3490; J7030; J7614; J7620

== ENCOUNTER 2016-12-31 11:15 | Inpatient (IN) | payer MEDICARE, OTHER ==
[2016-12-31] MEDS ORDERED: LIDOCAINE 2% URO-JET 5 ML KIT MM ONE (11:44)
[2016-12-31] MEDS ORDERED: NORMAL SALINE 1000 ML 1,000 ML IV ONE (11:44)
[2016-12-31] MEDS ORDERED: ACETAMINOPHEN 650 MG SUPP.RECT PR ONE (12:12)
[2016-12-31 12:14] LABS: ABSOLUTE BASOPHILS # (AUTO) 0.1 10^3/uL (0.0-0.2); ABSOLUTE LYMPHOCYTES (AUTO) 0.7 10^3/uL (0.5-4.7); ABSOLUTE MONOCYTES (AUTO) 0.8 10^3/uL (0.1-1.4); ABSOLUTE NEUT (AUTO) 11.6 10^3/uL (1.7-8.2); BASOPHILS % (AUTO) 0.4 % (0-2); LYMPHOCYTES % (AUTO) 5.7 % (13-45); MEAN CORPUSCULAR HEMOGLOBIN 26.9 pg (27.0-33.4); MEAN CORPUSCULAR HGB CONC 31.5 g/dL (32.0-36.0); MEAN CORPUSCULAR VOLUME 85 fl (80-97); MONOCYTES % (AUTO) 6.1 % (3-13); RED BLOOD COUNT 4.11 10^6/uL (4.35-5.55); RED CELL DISTRIBUTION WIDTH 15.6 % (11.5-14.0); SEGMENTED NEUTROPHILS % (AUTO) 87.8 % (42-78); WHITE BLOOD COUNT 13.2 10^3/uL (4.0-10.5)
[2016-12-31 12:17] LABS: VENOUS BLOOD BASE EXCESS 1.6 mmol/L; VENOUS BLOOD HCO3 27.1 mmol/L (20-32); VENOUS BLOOD PCO2 46.4 mmHg (35-63); VENOUS BLOOD PH 7.39 (7.30-7.42)
--- NOTE | 2016-12-31 12:20 | RADIOLOGY REPORT (SQ) ---
EXAM DESCRIPTION: CHEST SINGLE VIEW COMPLETED DATE/TIME: 12/31/2016 12:03 pm REASON FOR STUDY: cough COMPARISON: 09/05/2016. NUMBER OF VIEWS: One view. TECHNIQUE: Single frontal radiographic view of the chest acquired. LIMITATIONS: None. FINDINGS: LUNGS AND PLEURA: Hyperinflated lungs, COPD. Suspect mild basilar scar, improved aeration compared to prior. No pneumothorax. No discrete nodules or masses. MEDIASTINUM AND HILAR STRUCTURES: Stable contours without developing mass. HEART AND VASCULAR STRUCTURES: Heart normal in size. Normal vasculature. BONES: Sizable stable chondroid lesion in the proximal right humerus. HARDWARE: None in the chest. OTHER: No other significant finding. IMPRESSION: No acute or suspicious cardiopulmonary changes evident. TECHNICAL DOCUMENTATION: JOB ID: [id number] [employer]- All Rights Reserved
--- NOTE | 2016-12-31 12:24 | ER Document Report ---
ED Fever - General Chief Complaint: Fever Stated Complaint: FEVER Time Seen by Provider: 12/31/16 11:44 Mode of Arrival: Stretcher Information source: Relative - Darcie TRAVEL OUTSIDE OF THE [place] IN LAST 30 DAYS: No - HPI Patient complains to provider of: , Decreased responsiveness, wet cough Onset: Yesterday Onset/Duration: Worse Context: Congestion, Cough Associated symptoms: Nonproductive cough, Fever Notes: Patient is an 81-year-old male with a history of COPD and dementia, who presents to the emergency room via EMS from home, patient is nonverbal but at bedside provided information regarding his illness, she states over the past 2-3 days he has had a cough, it is wet but nonproductive, this morning he developed a fever, states that he was unresponsive this morning when she tried to wake him up, she had a difficult time getting him to awaken and taken his morning pills, she did give him 500 mg of Tylenol around 7 AM, she denies any sick contacts, he was hospitalized at this facility back in July and at that point in time had pneumonia he has decreased p.o. intake over the past 2-3 days as well, patient's reports that he is a DNR/DNI, daughter at bedside confirms this as well - Related Data Allergies/Adverse Reactions: No Known Allergies Allergy (Verified 08/26/16 15:51) Home Medications: Current Home Medications Aspirin [Ecotrin 81 mg EC Tablet] 81 mg PO DAILY 12/31/16 [History] Citalopram Hydrobromide [Celexa 20 mg Tablet] 20 mg PO DAILY 12/31/16 [History] Donepezil HCl [Aricept] 23 mg PO DAILY 12/31/16 [History] Doxazosin Mesylate [Cardura] 8 mg PO DAILY 12/31/16 [History] Finasteride [Proscar 5 mg Tablet] 5 mg PO DAILY 12/31/16 [History] Latanoprost [Xalatan 0.005% Oph Soln 2.5 ml] 1 drop OU QHS 12/31/16 [History] Levothyroxine Sodium [Synthroid 0.075 mg Tablet] 0.075 mg PO QAM 12/31/16 [ History] Memantine HCl [Namenda Xr] 28 mg PO DAILY 12/31/16 [History] Ranitidine HCl [Zantac 150 mg Tablet] 15 mg PO BID 12/31/16 [History] Simvastatin [Zocor 20 mg Tablet] 20 mg PO QHS 12/31/16 [History] Past Medical History - General Information source: Relative - Social History Smoking Status: Former Smoker Family History: Reviewed & Not Pertinent Pulmonary Medical History: Reports: Hx COPD Renal/ Medical History: Reports: Hx Benign Prostatic Hyperplasia Psychiatric Medical History: Reports: Hx Dementia, Hx Depression Past Surgical History: Reports: Hx Appendectomy, Hx Bowel Surgery - obstruction , Hx Thyroid Surgery - Immunizations Hx Pneumococcal Vaccination: 05/10/16 Review of Systems - Review of Systems Constitutional: Fever, Malaise, Weakness EENT: No symptoms reported Cardiovascular: No symptoms reported Respiratory: See HPI Gastrointestinal: Poor appetite, Poor fluid intake Genitourinary: No symptoms reported Male Genitourinary: No symptoms reported Musculoskeletal: No symptoms reported Skin: No symptoms reported Hematologic/Lymphatic: No symptoms reported Neurological/Psychological: See HPI -: Yes All other systems reviewed and negative Physical Exam - Vital signs Vitals: Temp Pulse BP Pulse Ox 97.6 F 103 H 132/46 H 92 12/31/16 11:19 12/31/16 11:19 12/31/16 11:19 12/31/16 11:19 Interpretation: Tachycardic, Febrile - General In distress: Mild - HEENT Head: Normocephalic, Atraumatic Eyes: Normal Conjunctiva: Normal Extraocular movements intact: Yes Eyelashes: Normal Pupils: PERRL Mucous membranes: Dry Pharynx: Normal - Respiratory Respiratory status: No respiratory distress Chest status: Nontender Breath sounds: Nonproductive cough Chest palpation: Normal - Cardiovascular Rhythm: Regular, Tachycardia Heart sounds: Normal auscultation Murmur: No - Abdominal Inspection: Normal Distension: No distension Bowel sounds: Normal Tenderness: Tender - Epigastric Organomegaly: No organomegaly - Back Back: Normal, Nontender - Extremities General upper extremity: Normal inspection, Nontender, Normal color, Normal ROM , Normal temperature General lower extremity: Normal inspection, Nontender, Normal color, Normal ROM , Normal temperature. No: Neville's sign - Neurological Peter Coma Scale Eye Opening: Spontaneous Winkelman Coma Scale Verbal: None Peter Coma Scale Motor: Withdraws to Pain Peter Coma Scale Total: 9 - Skin Skin Temperature: Hot Skin Moisture: Dry Skin Color: Pale Course - Re-evaluation Re-evalutation: 12/31/16 15:54 Patient was discussed with primary care provider who agrees to admit for further evaluation and treatment 12/31/16 17:16 - Vital Signs Vital signs: Temp Pulse Resp BP Pulse Ox 98.9 F 70 20 109/34 L 98 12/31/16 15:50 12/31/16 15:50 12/31/16 15:50 12/31/16 15:50 12/31/16 15:50 - Laboratory Result Diagrams: 12/31/16 11:45 12/31/16 11:45 Laboratory results interpreted by me: 12/31/16 12/31/16 12/31/16 11:45 11:45 11:45 WBC 13.2 H RBC 4.11 L Hgb 11.0 L Hct 35.0 L MCH 26.9 L MCHC 31.5 L RDW 15.6 H Seg Neutrophils % 87.8 H Lymphocytes % 5.7 L Absolute Neutrophils 11.6 H BUN 27 H Glucose 125 H POC Glucose Lactic Acid 2.3 H Total Protein 5.6 L Albumin 3.4 L Urine Blood Ur Leukocyte Esterase 12/31/16 12/31/16 12:35 12:46 WBC RBC Hgb Hct MCH MCHC RDW Seg Neutrophils % Lymphocytes % Absolute Neutrophils BUN Glucose POC Glucose 124 H Lactic Acid Total Protein Albumin Urine Blood MODERATE H Ur Leukocyte Esterase MODERATE H - Diagnostic Test Radiology reviewed: Image reviewed, Reports reviewed - EKG Interpretation by Me EKG shows normal: Sinus rhythm Rate: Normal Rhythm: NSR - Transfer of Care Care transferred to following provider: Dr. Valderrama Discharge - Discharge Clinical Impression: SIRS (systemic inflammatory response syndrome) Urinary tract infection Qualifiers: Urinary tract infection type: site unspecified Hematuria presence: without hematuria Qualified Code(s): N39.0 - Urinary tract infection, site not specified Condition: Fair Disposition: ADMITTED INPATIENT Admitting Provider: [facility] Admitted: [facility]
[2016-12-31 12:26] LABS: PROTHROMBIN TIME 12.4 SEC (11.4-15.4)
[2016-12-31 12:35] LABS: ALANINE AMINOTRANSFERASE 26 U/L (21-72); ALBUMIN 3.4 g/dL (3.5-5.0); ALKALINE PHOSPHATASE 70 U/L (38-126); ANION GAP 8 (5-19); ASPARTATE AMINO TRANSFERASE 18 U/L (17-59); BILIRUBIN,DIRECT 0.2 mg/dL (0.0-0.4); BILIRUBIN,TOTAL 0.5 mg/dL (0.2-1.3); BLOOD UREA NITROGEN 27 mg/dL (7-20); CALCIUM 9.1 mg/dL (8.4-10.2); CARBON DIOXIDE 27 mmol/L (22-30); CHLORIDE 106 mmol/L (98-107); CREATININE RESULT 0.98 mg/dL (0.52-1.25); GLUCOSE 125 mg/dL (75-110); POTASSIUM 4.4 mmol/L (3.6-5.0); SODIUM 141.4 mmol/L (137-145); TOTAL PROTEIN 5.6 g/dL (6.3-8.2)
[2016-12-31 12:53] LABS: APPEARANCE,URINE SLIGHTLY-CLOUDY; BILIRUBIN,URINE NEGATIVE (NEGATIVE); GLUCOSE, URINE NEGATIVE (NEGATIVE); KETONES,URINE NEGATIVE (NEGATIVE); LEUKOCYTE ESTERASE,URINE MODERATE (NEGATIVE); NITRITE,URINE NEGATIVE (NEGATIVE); PROTEIN,URINE NEGATIVE (NEGATIVE); URINE SPECIFIC GRAVITY 1.018; UROBILINOGEN,URINE NEGATIVE mg/dL (<2.0)
[2016-12-31] MEDS ORDERED: CEFTRIAXONE INJ 1000 MG VIAL IV ONE (12:54)
[2016-12-31] MEDS ORDERED: ASPIRIN 81 MG TABLET, CHEWABLE PO ONE (12:54)
--- NOTE | 2016-12-31 13:26 | EKG REPORT ---
SEVERITY:- ABNORMAL ECG - ATRIAL FIBRILLATION, V-RATE 81-109 : Confirmed by: Melecio Ch 31-Dec-2016 13:26:05
[2016-12-31] MEDS ORDERED: ACETAMINOPHEN 325 MG SUPP.RECT PR PRN (15:24)
[2016-12-31] MEDS: NORMAL SALINE 1000 ML 1,000 ML IV PRN (15:53)
[2016-12-31] MEDS ORDERED: LEVOFLOXACIN 500 MG/D5W RTU 500 MG/100 ML RTUPB IV ONE (16:00)
[2016-12-31] MEDS ORDERED: ENOXAPARIN SODIUM INJ 40 MG/0.4 ML DISP.SYRIN SUBCUT ONE (17:00)
[2016-12-31] MEDS: LEVOFLOXACIN 500 MG/D5W RTU 500 MG/100 ML RTUPB IV SCH (18:05)
[2016-12-31] MEDS ORDERED: DONEPEZIL HCL 5 MG TABLET PO ONE (21:30)
[2016-12-31] MEDS: PANTOPRAZOLE SODIUM 40 MG VIAL IV SCH (21:31)
[2016-12-31] MEDS: ALBUTEROL SULFATE 0.083% NEB 2.5 MG/3 ML AMPUL NEB PRN (23:05)
[2017-01-01 05:48] LABS: ALANINE AMINOTRANSFERASE 27 U/L (21-72); ALBUMIN 2.6 g/dL (3.5-5.0); ALKALINE PHOSPHATASE 56 U/L (38-126); ANION GAP 7 (5-19); ASPARTATE AMINO TRANSFERASE 14 U/L (17-59); BILIRUBIN,DIRECT 0.2 mg/dL (0.0-0.4); BILIRUBIN,TOTAL 0.4 mg/dL (0.2-1.3); BLOOD UREA NITROGEN 22 mg/dL (7-20); CALCIUM 8.4 mg/dL (8.4-10.2); CARBON DIOXIDE 25 mmol/L (22-30); CHLORIDE 111 mmol/L (98-107); CREATININE RESULT 0.81 mg/dL (0.52-1.25); GLUCOSE 98 mg/dL (75-110); POTASSIUM 3.9 mmol/L (3.6-5.0); SODIUM 142.9 mmol/L (137-145); TOTAL PROTEIN 4.8 g/dL (6.3-8.2)
[2017-01-01 06:05] LABS: ABSOLUTE BASOPHILS # (AUTO) 0.1 10^3/uL (0.0-0.2); ABSOLUTE EOSINOPHILS # (AUTO) 0.1 10^3/uL (0.0-0.6); ABSOLUTE LYMPHOCYTES (AUTO) 1.1 10^3/uL (0.5-4.7); ABSOLUTE MONOCYTES (AUTO) 0.8 10^3/uL (0.1-1.4); ABSOLUTE NEUT (AUTO) 7.6 10^3/uL (1.7-8.2); BASOPHILS % (AUTO) 0.7 % (0-2); EOSINOPHILS % (AUTO) 1.5 % (0-6); HEMATOCRIT 28.3 % (37.9-51.0); HGB HCT DIFFERENCE -1.3; MEAN CORPUSCULAR HEMOGLOBIN 26.8 pg (27.0-33.4); MEAN CORPUSCULAR HGB CONC 31.7 g/dL (32.0-36.0); MEAN CORPUSCULAR VOLUME 85 fl (80-97); MONOCYTES % (AUTO) 8.3 % (3-13); RED BLOOD COUNT 3.34 10^6/uL (4.35-5.55); RED CELL DISTRIBUTION WIDTH 15.7 % (11.5-14.0); SEGMENTED NEUTROPHILS % (AUTO) 78.5 % (42-78); WHITE BLOOD COUNT 9.7 10^3/uL (4.0-10.5)
[2017-01-01] MEDS: ALBUTEROL SULFATE 0.083% NEB 2.5 MG/3 ML AMPUL NEB PRN ×2 (08:32→16:04)
[2017-01-01] MEDS: ENOXAPARIN SODIUM INJ 40 MG/0.4 ML DISP.SYRIN SUBCUT SCH (09:03)
[2017-01-01] MEDS: PANTOPRAZOLE SODIUM 40 MG VIAL IV SCH (09:03)
[2017-01-01] MEDS: CEFTRIAXONE 1 GM/D5W RTU 1 GM/50 ML RTUPB IV SCH (09:03)
--- NOTE | 2017-01-01 11:09 | PDOC H&P ---
History of Present Illness Admission Date/PCP: 12/31/16 13:08 AURELIA BOLANOS Patient complains of: Fever History of Present Illness: ERIC COLLINS SR is a 81 year old male known to my practice who was brought to ED by EMS personnel with spouse reported decreased responsiveness, fever and nonproductive wet cough for couple of days. Spouse denied any significant aspiration. Patient remain on regular food content at home. She claimed satisfactory chewing before swallowing and full aspiration precautions with feeding. No vomiting. Patient has history of COPD and remain on nebulizer therapy at home. His initial evaluation in the ED was remarkable for abnormal urinalysis and Leukocytosis. He was advised hospitalization for SIRS with possible UTI. Patient has maintained a DNR and DNI status. His comorbidities include advance dementia, COPD, BPH, Osteoarthritis, Hypothyroidism, Hyperlipidemia, and depression. Past Medical History Cardiac Medical History: Reports: Hyperlipidema Pulmonary Medical History: Reports: Chronic Obstructive Pulmonary Disease (COPD) , Pneumonia Psychiatric Medical History: Reports: Dementia, Depression Past Surgical History Past Surgical History: Reports: Appendectomy Social History Smoking Status: Former Smoker Frequency of Alcohol Use: None Hx Recreational Drug Use: No Drugs: None Hx Prescription Drug Abuse: No - Advance Directive Resuscitation Status: Do Not Resuscitate Family History Family History: Reviewed & Not Pertinent Parental Family History Reviewed: Yes Children Family History Reviewed: Yes Sibling(s) Family History Reviewed.: Yes Medication/Allergy Home Medications: Aspirin [Ecotrin 81 mg EC Tablet] 81 mg PO DAILY 12/31/16 Citalopram Hydrobromide [Celexa 20 mg Tablet] 20 mg PO DAILY 12/31/16 Donepezil HCl [Aricept] 23 mg PO DAILY 12/31/16 Doxazosin Mesylate [Cardura] 8 mg PO DAILY 12/31/16 Finasteride [Proscar 5 mg Tablet] 5 mg PO DAILY 12/31/16 Latanoprost [Xalatan 0.005% Oph Soln 2.5 ml] 1 drop OU QHS 12/31/16 Levothyroxine Sodium [Synthroid 0.075 mg Tablet] 0.075 mg PO QAM 12/31/16 Memantine HCl [Namenda Xr] 28 mg PO DAILY 12/31/16 Ranitidine HCl [Zantac 150 mg Tablet] 15 mg PO BID 12/31/16 Simvastatin [Zocor 20 mg Tablet] 20 mg PO QHS 12/31/16 Allergies/Adverse Reactions: No Known Allergies Allergy (Verified 08/26/16 15:51) Review of Systems ROS unobtainable: Due to mental status - infoirmation from and daughter at bedside Constitutional: PRESENT: fever(s) Cardiovascular: ABSENT: chest pain, dyspnea on exertion, edema, orthropnea, palpitations Respiratory: PRESENT: cough Gastrointestinal: ABSENT: abdominal pain, constipation, diarrhea, hematemesis, hematochezia, nausea, vomiting Genitourinary: ABSENT: dysuria, hematuria Neurological: PRESENT: memory loss - due to advance dementia Hematologic/Lymphatic: ABSENT: easy bleeding, easy bruising Physical Exam Vital Signs: Temp Pulse Resp BP Pulse Ox 98.2 F 95 20 155/52 H 92 01/01/17 07:14 01/01/17 08:32 01/01/17 08:32 01/01/17 07:14 01/01/17 08:32 Intake & Output 12/31/16 01/01/17 01/02/17 06:59 06:59 06:59 Intake Total 2080 Balance 2080 Weight 67 kg General appearance: PRESENT: no acute distress Head exam: PRESENT: atraumatic, normocephalic Eye exam: PRESENT: conjunctiva pink, EOMI, PERRLA. ABSENT: scleral icterus Mouth exam: PRESENT: moist Respiratory exam: PRESENT: clear to auscultation madai, decreased breath sounds - at lung bases Cardiovascular exam: PRESENT: RRR. ABSENT: diastolic murmur, rubs, systolic murmur Vascular exam: PRESENT: normal capillary refill GI/Abdominal exam: PRESENT: normal bowel sounds, soft. ABSENT: distended, guarding, mass, organolmegaly, rebound, tenderness Rectal exam: PRESENT: deferred Extremities exam: ABSENT: pedal edema Musculoskeletal exam: PRESENT: deformity - related to multiple joint involvement with arthritis Neurological exam: PRESENT: altered - related to his advance dementia Psychiatric exam: PRESENT: appropriate affect Skin exam: PRESENT: dry, warm Results Laboratory Results: 01/01/17 05:18 01/01/17 05:18 12/31/16 01/01/17 01/01/17 16:17 05:18 05:18 WBC 9.7 RBC 3.34 L Hgb 9.0 L Hct 28.3 L MCV 85 MCH 26.8 L MCHC 31.7 L RDW 15.7 H Plt Count 197 Seg Neutrophils % 78.5 H Lymphocytes % 11.0 L Monocytes % 8.3 Eosinophils % 1.5 Basophils % 0.7 Absolute Neutrophils 7.6 Absolute Lymphocytes 1.1 Absolute Monocytes 0.8 Absolute Eosinophils 0.1 Absolute Basophils 0.1 Sodium 142.9 Potassium 3.9 Chloride 111 H Carbon Dioxide 25 Anion Gap 7 BUN 22 H Creatinine 0.81 Est GFR ( Amer) > 60 Est GFR (Non-Af Amer) > 60 Glucose 98 Lactic Acid 1.2 Calcium 8.4 Total Bilirubin 0.4 AST 14 L ALT 27 Alkaline Phosphatase 56 Total Protein 4.8 L Albumin 2.6 L Impressions: Chest X-Ray 12/31/16 11:45 IMPRESSION: No acute or suspicious cardiopulmonary changes evident. Assessment & Plan - Diagnosis (1) Hypothyroidism Qualifiers: Hypothyroidism type: acquired Qualified Code(s): E03.9 - Hypothyroidism, unspecified Is this a current diagnosis for this admission?: YesPlan: See admitting physician orders (2) Depression Qualifiers: Depression Type: major depressive disorder Psychotic features: without psychotic features Is this a current diagnosis for this admission?: YesPlan: See admitting physician orders (3) SIRS (systemic inflammatory response syndrome) Is this a current diagnosis for this admission?: Yes (4) Urinary tract infection Qualifiers: Urinary tract infection type: site unspecified Hematuria presence: without hematuria Qualified Code(s): N39.0 - Urinary tract infection, site not specified Is this a current diagnosis for this admission?: YesPlan: Maintain on IV Levofloxacin and Cefepime antibiotic coverage. Follow up on culture results. (5) COPD (chronic obstructive pulmonary disease) Qualifiers: COPD type: unspecified COPD Qualified Code(s): J44.9 - Chronic obstructive pulmonary disease, unspecified Is this a current diagnosis for this admission?: YesPlan: See admitting physician orders (6) Dementia Qualifiers: Dementia type: Alzheimer's disease Is this a current diagnosis for this admission?: YesPlan: See admitting physician orders (8) Hypertension Qualifiers: Hypertension type: essential hypertension Qualified Code(s): I10 - Essential (primary) hypertension Is this a current diagnosis for this admission?: YesPlan: See admitting physician orders - Time Time Spent: 50 to 70 Minutes Medications reviewed and adjusted accordingly: Yes Anticipated discharge: Home with Homehealth Within: Other - Inpatient Certification Based on my medical assessment, after consideration of the patient's comorbidities, presenting symptoms, or acuity I expect that the services needed warrant INPATIENT care.: Yes I certify that my determination is in accordance with my understanding of Medicare's requirements for reasonable and necessary INPATIENT services [42 CFR 412.3e].: Yes Medical Necessity: Need Close Monitoring Due to Risk of Patient Decompensation, Need For IV Fluids, Need For Continuous Telemetry Monitoring, Need for Nebulizer Therapy and Monitoring of Response, Need for IV Antibiotics, Risk of Complication if Not Cared For in Hospital 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
[2017-01-01] MEDS ORDERED: (PENDING PHARMACY ID) (Doxazosin Mesylate [Cardura] 8 MG) PO SCH (11:15)
[2017-01-01] MEDS ORDERED: DONEPEZIL HCL 23 MG PO SCH (11:15)
[2017-01-01] MEDS ORDERED: FINASTERIDE 5 MG TABLET PO ONE (11:30)
[2017-01-01] MEDS ORDERED: DOXAZOSIN MESYLATE 4 MG TABLET PO ONE (11:30)
[2017-01-01] MEDS ORDERED: NAMENDA 28 MG PO ONE (12:00)
[2017-01-01] MEDS ORDERED: LEVOTHYROXINE SODIUM 0.075 MG TABLET PO ONE (12:00)
[2017-01-01] MEDS ORDERED: DONEPEZIL 23 MG PO ONE (12:00)
[2017-01-01] MEDS ORDERED: ASPIRIN 81 MG TABLET, ENT COATED PO ONE (12:00)
[2017-01-01] MEDS ORDERED: CITALOPRAM HYDROBROMIDE 20 MG TABLET PO ONE (12:00)
[2017-01-01] MEDS: NORMAL SALINE 1000 ML 1,000 ML IV PRN (14:42)
[2017-01-01] MEDS: LEVOFLOXACIN 500 MG/D5W RTU 500 MG/100 ML RTUPB IV SCH (17:04)
[2017-01-01] MEDS ORDERED: ARICEPT 23 MG PO SCH (22:00)
[2017-01-01] MEDS: SIMVASTATIN 10 MG TABLET PO SCH (22:34)
[2017-01-01] MEDS: LATANOPROST 0.005% OPH SOLN 2.5 ML OU SCH (22:34)
[2017-01-02] MEDS: ALBUTEROL SULFATE 0.083% NEB 2.5 MG/3 ML AMPUL NEB PRN ×4 (00:37→21:51)
[2017-01-02] MEDS: NAMENDA 28 MG PO SCH (06:51)
[2017-01-02] MEDS: LEVOTHYROXINE SODIUM 0.075 MG TABLET PO SCH (06:51)
[2017-01-02] MEDS: LANSOPRAZOLE 30 MG TAB.RAP.DR PO SCH (06:51)
--- NOTE | 2017-01-02 08:15 | PDOC PROGRESS REPORT ---
Subjective Progress Note for:: 01/02/17 Subjective:: Patient demonstrated difficulty with breathing and need for nebulizer this morning. There is persistent nonproductive cough. Expectoration limitation probably due to his advance baseline dementia. No observed chest pain. No nausea or vomiting. Spouse reported fair p.o intake since admission. Physical Exam Vital Signs: Temp Pulse Resp BP Pulse Ox 98.8 F 95 22 H 156/65 H 98 01/02/17 07:30 01/02/17 07:30 01/02/17 07:30 01/02/17 07:30 01/02/17 07:30 Intake & Output 01/01/17 01/02/17 01/03/17 06:59 06:59 06:59 Intake Total 2620 Balance 2620 Weight 74.6 kg Physical Exam: General appearance: PRESENT: no acute distress Head exam: PRESENT: atraumatic, normocephalic Eye exam: PRESENT: conjunctiva pink, EOMI, PERRLA. ABSENT: scleral icterus Mouth exam: PRESENT: moist Respiratory exam: PRESENT: Expiratory wheezing and rhonchi, decreased breath sounds - at lung bases Cardiovascular exam: PRESENT: RRR. ABSENT: diastolic murmur, rubs, systolic murmur GI/Abdominal exam: PRESENT: normal bowel sounds, soft. ABSENT: distended, guarding, mass, organomegaly, rebound, tenderness Extremities exam: ABSENT: pedal edema Musculoskeletal exam: PRESENT: deformity - related to multiple joint involvement with arthritis Neurological exam: PRESENT: altered - related to his advance dementia Psychiatric exam: PRESENT: appropriate affect Skin exam: PRESENT: dry, warm Results Impressions: Chest X-Ray 12/31/16 11:45 IMPRESSION: No acute or suspicious cardiopulmonary changes evident. Assessment & Plan - Diagnosis (1) Hypothyroidism Qualifiers: Hypothyroidism type: acquired Qualified Code(s): E03.9 - Hypothyroidism, unspecified Is this a current diagnosis for this admission?: Yes (2) Depression Qualifiers: Depression Type: major depressive disorder Psychotic features: without psychotic features Is this a current diagnosis for this admission?: Yes (3) SIRS (systemic inflammatory response syndrome) Is this a current diagnosis for this admission?: YesPlan: Improved. See attending physician orders (4) Urinary tract infection Qualifiers: Urinary tract infection type: site unspecified Hematuria presence: without hematuria Qualified Code(s): N39.0 - Urinary tract infection, site not specified Is this a current diagnosis for this admission?: YesPlan: See attending physician orders. Follow up on urine culture findings. (5) COPD (chronic obstructive pulmonary disease) Qualifiers: COPD type: unspecified COPD Qualified Code(s): J44.9 - Chronic obstructive pulmonary disease, unspecified Is this a current diagnosis for this admission?: YesPlan: See attending physician orders (6) Dementia Qualifiers: Dementia type: Alzheimer's disease Is this a current diagnosis for this admission?: Yes (8) Hypertension Qualifiers: Hypertension type: essential hypertension Qualified Code(s): I10 - Essential (primary) hypertension Is this a current diagnosis for this admission?: Yes - Time Time Spent with patient: 25-34 minutes - Inpatient Certification Medical Necessity: Need Close Monitoring Due to Risk of Patient Decompensation, Need For IV Fluids, Need For Continuous Telemetry Monitoring, Need for Nebulizer Therapy and Monitoring of Response, Need for IV Antibiotics, Risk of Complication if Not Cared For in Hospital 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
[2017-01-02] MEDS: CEFTRIAXONE 1 GM/D5W RTU 1 GM/50 ML RTUPB IV SCH (09:19)
[2017-01-02] MEDS: ENOXAPARIN SODIUM INJ 40 MG/0.4 ML DISP.SYRIN SUBCUT SCH (09:20)
[2017-01-02] MEDS: DOXAZOSIN MESYLATE 4 MG TABLET PO SCH (09:21)
[2017-01-02] MEDS: CITALOPRAM HYDROBROMIDE 20 MG TABLET PO SCH (09:21)
[2017-01-02] MEDS: ASPIRIN 81 MG TABLET, ENT COATED PO SCH (09:22)
[2017-01-02] MEDS: FINASTERIDE 5 MG TABLET PO SCH (09:23)
--- NOTE | 2017-01-02 09:29 | RADIOLOGY REPORT (SQ) ---
EXAM DESCRIPTION: CHEST SINGLE VIEW COMPLETED DATE/TIME: 01/02/2017 9:09 am REASON FOR STUDY: cough r/o pneumonia COMPARISON: 12/31/2016 EXAM PARAMETERS: NUMBER OF VIEWS: One view. TECHNIQUE: Single frontal radiographic view of the chest acquired. RADIATION DOSE: NA LIMITATIONS: None. FINDINGS: LUNGS AND PLEURA: No masses or pneumothorax. No pleural effusion. There is an ill-defined increased density in the left retrocardiac area which could represent atelectatic changes or minimal infiltrate. Again I cannot exclude a component of obstructive lung disease. MEDIASTINUM AND HILAR STRUCTURES: No masses. Contour normal. HEART AND VASCULAR STRUCTURES: Heart normal in size. Normal vasculature. BONES: The previously described stable chondroid lesion in the proximal right humerus is again identi fied. HARDWARE: None in the chest. OTHER: No other significant finding. IMPRESSION: Ill-defined increased density in the left retrocardiac area which could represent atelec tatic changes or minimal infiltrate. Remaining lung anna are clear. Other findings as noted above TECHNICAL DOCUMENTATION: JOB ID: [id number]
[2017-01-02] MEDS ORDERED: DONEPEZIL 23 MG PO SCH (10:00)
[2017-01-02 10:55] LABS: HEMATOCRIT 27.7 % (37.9-51.0); HEMOGLOBIN 8.7 g/dL (13.5-17.0); HGB HCT DIFFERENCE -1.6; MEAN CORPUSCULAR HEMOGLOBIN 26.5 pg (27.0-33.4); MEAN CORPUSCULAR HGB CONC 31.3 g/dL (32.0-36.0); MEAN CORPUSCULAR VOLUME 85 fl (80-97); RED BLOOD COUNT 3.28 10^6/uL (4.35-5.55); RED CELL DISTRIBUTION WIDTH 15.8 % (11.5-14.0); WHITE BLOOD COUNT 7.8 10^3/uL (4.0-10.5)
[2017-01-02 11:18] LABS: ALANINE AMINOTRANSFERASE 28 U/L (21-72); ALBUMIN 2.7 g/dL (3.5-5.0); ALKALINE PHOSPHATASE 55 U/L (38-126); ANION GAP 7 (5-19); ASPARTATE AMINO TRANSFERASE 29 U/L (17-59); BILIRUBIN,DIRECT 0.3 mg/dL (0.0-0.4); BILIRUBIN,TOTAL 0.4 mg/dL (0.2-1.3); BLOOD UREA NITROGEN 14 mg/dL (7-20); CALCIUM 8.4 mg/dL (8.4-10.2); CARBON DIOXIDE 24 mmol/L (22-30); CHLORIDE 111 mmol/L (98-107); CREATININE RESULT 0.72 mg/dL (0.52-1.25); GLUCOSE 107 mg/dL (75-110); SODIUM 142.4 mmol/L (137-145); TOTAL PROTEIN 5.1 g/dL (6.3-8.2)
[2017-01-02 11:23] LABS: BASOPHILS % (MANUAL) 0 % (0-2); EOSINOPHILS % (MANUAL) 9 % (0-6); LYMPHOCYTES % (MANUAL) 3 % (13-45); TOTAL CELLS COUNTED 100
[2017-01-02 11:25] LABS: ANISOCYTOSIS SLIGHT; TOXIC GRANULATION SLIGHT
[2017-01-02] MEDS: NORMAL SALINE 1000 ML 1,000 ML IV PRN (13:50)
[2017-01-02] MEDS: LEVOFLOXACIN 500 MG TABLET PO SCH (17:03)
[2017-01-02] MEDS: DONEPEZIL 23 MG PO SCH (22:08)
[2017-01-02] MEDS: LATANOPROST 0.005% OPH SOLN 2.5 ML OU SCH (22:13)
[2017-01-02] MEDS: SIMVASTATIN 10 MG TABLET PO SCH (22:13)
[2017-01-03] MEDS: ALBUTEROL SULFATE 0.083% NEB 2.5 MG/3 ML AMPUL NEB PRN ×4 (05:02→22:42)
[2017-01-03] MEDS: LANSOPRAZOLE 30 MG TAB.RAP.DR PO SCH (06:30)
[2017-01-03] MEDS: LEVOTHYROXINE SODIUM 0.075 MG TABLET PO SCH (06:30)
[2017-01-03] MEDS: ASPIRIN 81 MG TABLET, ENT COATED PO SCH (09:47)
[2017-01-03] MEDS: CITALOPRAM HYDROBROMIDE 20 MG TABLET PO SCH (09:47)
[2017-01-03] MEDS: NAMENDA 28 MG PO SCH (09:47)
[2017-01-03] MEDS: CEFTRIAXONE 1 GM/D5W RTU 1 GM/50 ML RTUPB IV SCH (09:47)
[2017-01-03] MEDS: FINASTERIDE 5 MG TABLET PO SCH (09:47)
[2017-01-03] MEDS: ENOXAPARIN SODIUM INJ 40 MG/0.4 ML DISP.SYRIN SUBCUT SCH (09:48)
[2017-01-03] MEDS: DOXAZOSIN MESYLATE 4 MG TABLET PO SCH (09:48)
[2017-01-03] MEDS: NORMAL SALINE 1000 ML 1,000 ML IV PRN ×2 (10:31→19:35)
[2017-01-03] MEDS: LEVOFLOXACIN 500 MG TABLET PO SCH (18:01)
--- NOTE | 2017-01-03 18:15 | PDOC PROGRESS REPORT ---
Subjective Progress Note for:: 01/03/17 Subjective:: Patient demonstrated episodes of coughing spells as reported by spouse at bedside. There is persistent difficulty with expectoration due to his advance baseline dementia. Single episode of low grade fever as per record review. No observed chest pain. No nausea or vomiting. Spouse reported fair p.o intake since admission. Physical Exam Vital Signs: Temp Pulse Resp BP Pulse Ox 98.6 F 85 20 140/52 H 93 01/03/17 11:40 01/03/17 14:00 01/03/17 11:40 01/03/17 11:40 01/03/17 11:40 Intake & Output 01/02/17 01/03/17 01/04/17 06:59 06:59 06:59 Intake Total 2620 1560 238 Balance 2620 1560 238 Weight 74.6 kg 77.1 kg Physical Exam: General appearance: PRESENT: no acute distress Head exam: PRESENT: atraumatic, normocephalic Eye exam: PRESENT: conjunctiva pink, EOMI, PERRLA. ABSENT: scleral icterus Mouth exam: PRESENT: moist Respiratory exam: PRESENT: Expiratory wheezing and rhonchi, decreased breath sounds - at lung bases Cardiovascular exam: PRESENT: RRR. ABSENT: diastolic murmur, rubs, systolic murmur GI/Abdominal exam: PRESENT: normal bowel sounds, soft. ABSENT: distended, guarding, mass, organomegaly, rebound, tenderness Extremities exam: ABSENT: pedal edema Musculoskeletal exam: PRESENT: deformity - related to multiple joint involvement with arthritis Neurological exam: PRESENT: altered - related to his advance dementia Psychiatric exam: PRESENT: appropriate affect Skin exam: PRESENT: dry, warm, diffuse ecchymotic lesion on face. Results Laboratory Results: 01/02/17 10:28 01/02/17 10:28 Impressions: Chest X-Ray 01/02/17 00:00 IMPRESSION: Ill-defined increased density in the left retrocardiac area which could represent atelectatic changes or minimal infiltrate. Remaining lung anna are clear. Other findings as noted above Assessment & Plan - Diagnosis (1) Hypothyroidism Qualifiers: Hypothyroidism type: acquired Qualified Code(s): E03.9 - Hypothyroidism, unspecified Is this a current diagnosis for this admission?: Yes (2) Depression Qualifiers: Depression Type: major depressive disorder Psychotic features: without psychotic features Is this a current diagnosis for this admission?: Yes (3) SIRS (systemic inflammatory response syndrome) Is this a current diagnosis for this admission?: Yes (4) Urinary tract infection Qualifiers: Urinary tract infection type: site unspecified Hematuria presence: without hematuria Qualified Code(s): N39.0 - Urinary tract infection, site not specified Is this a current diagnosis for this admission?: Yes (5) COPD (chronic obstructive pulmonary disease) Qualifiers: COPD type: unspecified COPD Qualified Code(s): J44.9 - Chronic obstructive pulmonary disease, unspecified Is this a current diagnosis for this admission?: Yes (6) Dementia Qualifiers: Dementia type: Alzheimer's disease Is this a current diagnosis for this admission?: Yes (8) Hypertension Qualifiers: Hypertension type: essential hypertension Qualified Code(s): I10 - Essential (primary) hypertension Is this a current diagnosis for this admission?: Yes (9) Erendira cystitis Is this a current diagnosis for this admission?: YesPlan: See attending physician orders. - Time Time Spent with patient: 25-34 minutes Medications reviewed and adjusted accordingly: Yes Anticipated discharge: Home with Homehealth Within: Other - Inpatient Certification Based on my medical assessment, after consideration of the patient's comorbidities, presenting symptoms, or acuity I expect that the services needed warrant INPATIENT care.: Yes I certify that my determination is in accordance with my understanding of Medicare's requirements for reasonable and necessary INPATIENT services [42 CFR 412.3e].: Yes Medical Necessity: Need Close Monitoring Due to Risk of Patient Decompensation, Need For IV Fluids, Need For Continuous Telemetry Monitoring, Need for Nebulizer Therapy and Monitoring of Response, Need for IV Antibiotics, Risk of Complication if Not Cared For in Hospital 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
[2017-01-03] MEDS ORDERED: FLUCONAZOLE 400 MG/NS RTU 400 MG/200 ML RTUPB IV ONE (19:00)
[2017-01-03] MEDS: DONEPEZIL 23 MG PO SCH (21:27)
[2017-01-03] MEDS ORDERED: ENALAPRILAT DIHYDRATE INJ/PF 1.25 MG/1 ML SDV IV ONE ×2 (21:39→22:00)
[2017-01-03] MEDS: SIMVASTATIN 10 MG TABLET PO SCH (21:46)
[2017-01-03] MEDS: LATANOPROST 0.005% OPH SOLN 2.5 ML OU SCH (21:52)
[2017-01-04 04:36] LABS: ABSOLUTE BASOPHILS # (AUTO) 0.1 10^3/uL (0.0-0.2); ABSOLUTE EOSINOPHILS # (AUTO) 0.4 10^3/uL (0.0-0.6); ABSOLUTE LYMPHOCYTES (AUTO) 1.2 10^3/uL (0.5-4.7); ABSOLUTE MONOCYTES (AUTO) 0.8 10^3/uL (0.1-1.4); ABSOLUTE NEUT (AUTO) 4.4 10^3/uL (1.7-8.2); BASOPHILS % (AUTO) 1.3 % (0-2); EOSINOPHILS % (AUTO) 6.4 % (0-6); HEMATOCRIT 28.1 % (37.9-51.0); HGB HCT DIFFERENCE -1.1; LYMPHOCYTES % (AUTO) 16.8 % (13-45); MEAN CORPUSCULAR HEMOGLOBIN 26.7 pg (27.0-33.4); MEAN CORPUSCULAR HGB CONC 31.9 g/dL (32.0-36.0); MEAN CORPUSCULAR VOLUME 84 fl (80-97); MONOCYTES % (AUTO) 11.1 % (3-13); RED BLOOD COUNT 3.37 10^6/uL (4.35-5.55); RED CELL DISTRIBUTION WIDTH 15.5 % (11.5-14.0); SEGMENTED NEUTROPHILS % (AUTO) 64.4 % (42-78); WHITE BLOOD COUNT 6.9 10^3/uL (4.0-10.5)
[2017-01-04 04:45] LABS: ALANINE AMINOTRANSFERASE 42 U/L (21-72); ALBUMIN 2.7 g/dL (3.5-5.0); ALKALINE PHOSPHATASE 65 U/L (38-126); ANION GAP 5 (5-19); ASPARTATE AMINO TRANSFERASE 27 U/L (17-59); BILIRUBIN,DIRECT 0.2 mg/dL (0.0-0.4); BILIRUBIN,TOTAL 0.4 mg/dL (0.2-1.3); BLOOD UREA NITROGEN 13 mg/dL (7-20); CALCIUM 8.8 mg/dL (8.4-10.2); CARBON DIOXIDE 27 mmol/L (22-30); CHLORIDE 108 mmol/L (98-107); CREATININE RESULT 0.68 mg/dL (0.52-1.25); GLUCOSE 89 mg/dL (75-110); POTASSIUM 3.9 mmol/L (3.6-5.0); SODIUM 139.7 mmol/L (137-145)
--- NOTE | 2017-01-04 05:03 | Physician Advisory Note ---
Physician Advisor ProgressNote .: Pursuant to the plan for Nelli Wood, I have reviewed the medical record for this patient. Physician Advisor Statement: Please consider documentin. Was there "possible sepsis, present on adm, due to ___", or do you think he was not clinically septic initially? - Due to UTI, or to bacterial COPD exac? Or SIRS due to noninfectious COPD exac? - Need cause specified. - Anytime there is (+)SIRS & a possible infectious source, we need to specify whether or not we think there was/is sepsis present. - This pt had T 100.9 (after Tylenol), WBC 13.2, HR 103, RR up to 24, w/ lactate level 2.3, acute encephalopathy/GCS total 9, MAP as low as 59 & 61, P/F ratio as low as 178, skin pale/ashen w/turgor "fair" per 12:32 nursing note - he more than met both Sepsis-2 & Sepsis-3 criteria for the dx. Pt has been tx' d w/IVF, IV abx, f/u lactate level, .... 2. "Principal Dx" - please list the primary reason for adm as Dx #1 in all notes. - Was it COPD exac or UTI? 3. "Acute exacerbation of COPD w/acute bronchitis" - When only "COPD" is documented, reviewers will say it is just a chronic co- morbidity & not give you credit for how sick pt is. - Tx w/abx indicates you expect likely infectious element, & not just generic COPD exac. 4. ? "Acute Hypoxemic Respiratory Failure" - For EMS, pt had O2 sat 81% on RA (doesn't use home O2). Even w/4L O2 on, on ED arrival he was tachycardic & recurrently tachypneic, with "mild distress" per ED dr, & "difficulty breathing" still per 01/02 progress note. He has continued to receive O2 since arrival & frequent nebs. - If O2 is given by nursing but there is no order for it by attending, reviewers will not consider the hypoxemia something that the attending is tx' ing or concerned about. 5. "Decubiti, all stage 2, of Rt buttock x1 & Lt buttock x3, present on adm" Thanks for your help w/documentation optimization! CK
[2017-01-04] MEDS: ALBUTEROL SULFATE 0.083% NEB 2.5 MG/3 ML AMPUL NEB PRN ×3 (06:14→21:32)
[2017-01-04] MEDS: LEVOTHYROXINE SODIUM 0.075 MG TABLET PO SCH (06:29)
[2017-01-04] MEDS: LANSOPRAZOLE 30 MG TAB.RAP.DR PO SCH (06:30)
[2017-01-04] MEDS: DOXAZOSIN MESYLATE 4 MG TABLET PO SCH (06:47)
[2017-01-04] MEDS ORDERED: DOXAZOSIN MESYLATE 4 MG TABLET PO ONE (07:00)
--- NOTE | 2017-01-04 08:52 | PDOC PROGRESS REPORT ---
Subjective Progress Note for:: 01/04/17 Subjective:: Patient demonstrated elevated blood pressure since last clinical evaluation. No observed chest pain or difficulty with breathing. No nausea or vomiting. Tolerating assisted oral feeding. No fever. Physical Exam Vital Signs: Temp Pulse Resp BP Pulse Ox 98.5 F 92 16 139/58 H 97 01/04/17 07:35 01/04/17 07:35 01/04/17 07:35 01/04/17 07:35 01/04/17 07:35 Intake & Output 01/03/17 01/04/17 01/05/17 06:59 06:59 06:59 Intake Total 1560 1803 Output Total 2 Balance 1560 1801 Weight 77.1 kg Physical Exam: General appearance: PRESENT: no acute distress Head exam: PRESENT: atraumatic, normocephalic Eye exam: PRESENT: conjunctiva pink, EOMI, PERRLA. ABSENT: scleral icterus Mouth exam: PRESENT: moist Respiratory exam: PRESENT: Expiratory wheezing and rhonchi, decreased breath sounds - at lung bases Cardiovascular exam: PRESENT: RRR. ABSENT: diastolic murmur, rubs, systolic murmur GI/Abdominal exam: PRESENT: normal bowel sounds, soft. ABSENT: distended, guarding, mass, organomegaly, rebound, tenderness Extremities exam: ABSENT: pedal edema Musculoskeletal exam: PRESENT: deformity - related to multiple joint involvement with arthritis Neurological exam: PRESENT: altered - related to his advance dementia Psychiatric exam: PRESENT: appropriate affect Skin exam: PRESENT: dry, warm, diffuse ecchymotic lesion on face. Results Laboratory Results: 01/04/17 03:53 01/04/17 03:53 01/04/17 01/04/17 03:53 03:53 WBC 6.9 RBC 3.37 L Hgb 9.0 L Hct 28.1 L MCV 84 MCH 26.7 L MCHC 31.9 L RDW 15.5 H Plt Count 203 Seg Neutrophils % 64.4 Lymphocytes % 16.8 Monocytes % 11.1 Eosinophils % 6.4 H Basophils % 1.3 Absolute Neutrophils 4.4 Absolute Lymphocytes 1.2 Absolute Monocytes 0.8 Absolute Eosinophils 0.4 Absolute Basophils 0.1 Sodium 139.7 Potassium 3.9 Chloride 108 H Carbon Dioxide 27 Anion Gap 5 BUN 13 Creatinine 0.68 Est GFR ( Amer) > 60 Est GFR (Non-Af Amer) > 60 Glucose 89 Calcium 8.8 Total Bilirubin 0.4 AST 27 ALT 42 Alkaline Phosphatase 65 Total Protein 5.0 L Albumin 2.7 L Impressions: Chest X-Ray 01/02/17 00:00 IMPRESSION: Ill-defined increased density in the left retrocardiac area which could represent atelectatic changes or minimal infiltrate. Remaining lung anna are clear. Other findings as noted above Assessment & Plan - Diagnosis (1) SIRS (systemic inflammatory response syndrome) Is this a current diagnosis for this admission?: YesPlan: Improved. See attending physician orders (2) COPD (chronic obstructive pulmonary disease) Qualifiers: COPD type: unspecified COPD Qualified Code(s): J44.9 - Chronic obstructive pulmonary disease, unspecified Is this a current diagnosis for this admission?: YesPlan: See attending physician orders (3) Erendira cystitis Is this a current diagnosis for this admission?: YesPlan: See attending physician orders. (4) Urinary tract infection Qualifiers: Urinary tract infection type: site unspecified Hematuria presence: without hematuria Qualified Code(s): N39.0 - Urinary tract infection, site not specified Is this a current diagnosis for this admission?: YesPlan: See attending physician orders. Follow up on urine culture findings. (5) Hypertension Qualifiers: Hypertension type: essential hypertension Qualified Code(s): I10 - Essential (primary) hypertension Is this a current diagnosis for this admission?: YesPlan: See admitting physician orders (6) Hypothyroidism Qualifiers: Hypothyroidism type: acquired Qualified Code(s): E03.9 - Hypothyroidism, unspecified Is this a current diagnosis for this admission?: Yes (7) Depression Qualifiers: Depression Type: major depressive disorder Psychotic features: without psychotic features Is this a current diagnosis for this admission?: Yes (8) Dementia Qualifiers: Dementia type: Alzheimer's disease Is this a current diagnosis for this admission?: Yes - Time Time Spent with patient: 25-34 minutes Medications reviewed and adjusted accordingly: Yes Anticipated discharge: Home with Homehealth Within: Other - Inpatient Certification Based on my medical assessment, after consideration of the patient's comorbidities, presenting symptoms, or acuity I expect that the services needed warrant INPATIENT care.: Yes I certify that my determination is in accordance with my understanding of Medicare's requirements for reasonable and necessary INPATIENT services [42 CFR 412.3e].: Yes Medical Necessity: Need Close Monitoring Due to Risk of Patient Decompensation, Need For IV Fluids, Need For Continuous Telemetry Monitoring, Need for Nebulizer Therapy and Monitoring of Response, Need for IV Antibiotics, Risk of Complication if Not Cared For in Hospital 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
[2017-01-04] MEDS: FINASTERIDE 5 MG TABLET PO SCH (09:36)
[2017-01-04] MEDS: CITALOPRAM HYDROBROMIDE 20 MG TABLET PO SCH (09:36)
[2017-01-04] MEDS: ASPIRIN 81 MG TABLET, ENT COATED PO SCH (09:36)
[2017-01-04] MEDS: CEFTRIAXONE 1 GM/D5W RTU 1 GM/50 ML RTUPB IV SCH (09:37)
[2017-01-04] MEDS: NAMENDA 28 MG PO SCH (09:38)
[2017-01-04] MEDS: AMLODIPINE BESYLATE 2.5 MG TABLET PO SCH (09:45)
[2017-01-04] MEDS: ENOXAPARIN SODIUM INJ 40 MG/0.4 ML DISP.SYRIN SUBCUT SCH (09:46)
[2017-01-04] MEDS: FLUCONAZOLE 200 MG/NS RTU 100 ML IV SCH (09:47)
[2017-01-04] MEDS: LEVOFLOXACIN 500 MG TABLET PO SCH (18:13)
[2017-01-04] MEDS: NORMAL SALINE 1000 ML 1,000 ML IV PRN (18:13)
[2017-01-04] MEDS: SIMVASTATIN 10 MG TABLET PO SCH (21:20)
[2017-01-04] MEDS: DONEPEZIL 23 MG PO SCH (21:20)
[2017-01-04] MEDS: LATANOPROST 0.005% OPH SOLN 2.5 ML OU SCH (21:21)
[2017-01-05] MEDS: ALBUTEROL SULFATE 0.083% NEB 2.5 MG/3 ML AMPUL NEB PRN ×4 (03:39→22:21)
[2017-01-05] MEDS: LEVOTHYROXINE SODIUM 0.075 MG TABLET PO SCH (06:23)
[2017-01-05] MEDS: LANSOPRAZOLE 30 MG TAB.RAP.DR PO SCH (06:23)
[2017-01-05] MEDS: AMLODIPINE BESYLATE 2.5 MG TABLET PO SCH (08:50)
[2017-01-05] MEDS: NAMENDA 28 MG PO SCH (08:50)
[2017-01-05] MEDS: ASPIRIN 81 MG TABLET, ENT COATED PO SCH (08:50)
[2017-01-05] MEDS: FINASTERIDE 5 MG TABLET PO SCH (08:51)
[2017-01-05] MEDS: DOXAZOSIN MESYLATE 4 MG TABLET PO SCH (08:51)
[2017-01-05] MEDS: ENOXAPARIN SODIUM INJ 40 MG/0.4 ML DISP.SYRIN SUBCUT SCH (08:51)
[2017-01-05] MEDS: CEFTRIAXONE 1 GM/D5W RTU 1 GM/50 ML RTUPB IV SCH (08:51)
[2017-01-05] MEDS: CITALOPRAM HYDROBROMIDE 20 MG TABLET PO SCH (08:51)
[2017-01-05] MEDS: FLUCONAZOLE 200 MG/NS RTU 100 ML IV SCH (09:54)
[2017-01-05] MEDS: LEVOFLOXACIN 500 MG TABLET PO SCH (16:45)
--- NOTE | 2017-01-05 17:53 | PDOC PROGRESS REPORT ---
Subjective Progress Note for:: 01/05/17 Subjective:: Patient remain on IV Diflucan and antibiotic coverage. No observed chest pain or difficulty with breathing. No nausea or vomiting. Tolerating assisted oral feeding. No fever. Physical Exam Vital Signs: Temp Pulse Resp BP Pulse Ox 98.9 F 87 20 151/65 H 99 01/05/17 15:32 01/05/17 15:32 01/05/17 15:32 01/05/17 15:32 01/05/17 15:32 Intake & Output 01/04/17 01/05/17 01/06/17 06:59 06:59 06:59 Intake Total 1803 1963 720 Output Total 2 Balance 1801 1963 720 Weight 76 kg Physical Exam: General appearance: PRESENT: no acute distress Head exam: PRESENT: atraumatic, normocephalic Eye exam: PRESENT: conjunctiva pink, EOMI, PERRLA. ABSENT: scleral icterus Mouth exam: PRESENT: moist Respiratory exam: PRESENT: Expiratory wheezing and rhonchi, decreased breath sounds - at lung bases Cardiovascular exam: PRESENT: RRR. ABSENT: diastolic murmur, rubs, systolic murmur GI/Abdominal exam: PRESENT: normal bowel sounds, soft. ABSENT: distended, guarding, mass, organomegaly, rebound, tenderness Extremities exam: ABSENT: pedal edema Musculoskeletal exam: PRESENT: deformity - related to multiple joint involvement with arthritis Neurological exam: PRESENT: altered - related to his advance dementia Psychiatric exam: PRESENT: appropriate affect Skin exam: PRESENT: dry, warm, diffuse ecchymotic lesion on face. Results Laboratory Results: 01/04/17 03:53 01/04/17 03:53 Impressions: Chest X-Ray 01/02/17 00:00 IMPRESSION: Ill-defined increased density in the left retrocardiac area which could represent atelectatic changes or minimal infiltrate. Remaining lung anna are clear. Other findings as noted above Assessment & Plan - Diagnosis (1) SIRS (systemic inflammatory response syndrome) Is this a current diagnosis for this admission?: YesPlan: Improved. See attending physician orders (2) COPD (chronic obstructive pulmonary disease) Qualifiers: COPD type: unspecified COPD Qualified Code(s): J44.9 - Chronic obstructive pulmonary disease, unspecified Is this a current diagnosis for this admission?: YesPlan: See attending physician orders (3) Erendira cystitis Is this a current diagnosis for this admission?: YesPlan: See attending physician orders. (4) Urinary tract infection Qualifiers: Urinary tract infection type: site unspecified Hematuria presence: without hematuria Qualified Code(s): N39.0 - Urinary tract infection, site not specified Is this a current diagnosis for this admission?: YesPlan: See attending physician orders. Follow up on urine culture findings. (5) Hypertension Qualifiers: Hypertension type: essential hypertension Qualified Code(s): I10 - Essential (primary) hypertension Is this a current diagnosis for this admission?: YesPlan: See admitting physician orders. Increase Amlodipine to 5 mg po daily. He will receive extra now dose of 2.5 mg. (6) Hypothyroidism Qualifiers: Hypothyroidism type: acquired Qualified Code(s): E03.9 - Hypothyroidism, unspecified Is this a current diagnosis for this admission?: YesPlan: See admitting physician orders (7) Depression Qualifiers: Depression Type: major depressive disorder Psychotic features: without psychotic features Is this a current diagnosis for this admission?: YesPlan: See admitting physician orders (8) Dementia Qualifiers: Dementia type: Alzheimer's disease Is this a current diagnosis for this admission?: YesPlan: See admitting physician orders (9) HLD (hyperlipidemia) Qualifiers: Hyperlipidemia type: pure hypercholesterolemia Qualified Code(s): E78.00 - Pure hypercholesterolemia, unspecified; E78.0 - Pure hypercholesterolemia Is this a current diagnosis for this admission?: YesPlan: See admitting physician orders - Time Time Spent with patient: 25-34 minutes Medications reviewed and adjusted accordingly: Yes - Inpatient Certification Medical Necessity: Need Close Monitoring Due to Risk of Patient Decompensation, Need For IV Fluids, Need For Continuous Telemetry Monitoring, Need for Nebulizer Therapy and Monitoring of Response, Need for IV Antibiotics, Risk of Complication if Not Cared For in Hospital 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
[2017-01-05] MEDS ORDERED: AMLODIPINE BESYLATE 2.5 MG TABLET PO ONE (18:15)
[2017-01-05] MEDS: SIMVASTATIN 10 MG TABLET PO SCH (21:32)
[2017-01-05] MEDS: LATANOPROST 0.005% OPH SOLN 2.5 ML OU SCH (21:34)
[2017-01-05] MEDS: DONEPEZIL 23 MG PO SCH (21:40)
[2017-01-06] MEDS: ALBUTEROL SULFATE 0.083% NEB 2.5 MG/3 ML AMPUL NEB PRN ×4 (03:38→20:12)
[2017-01-06] MEDS: LEVOTHYROXINE SODIUM 0.075 MG TABLET PO SCH (05:35)
[2017-01-06] MEDS: LANSOPRAZOLE 30 MG TAB.RAP.DR PO SCH (05:35)
[2017-01-06] MEDS: ENOXAPARIN SODIUM INJ 40 MG/0.4 ML DISP.SYRIN SUBCUT SCH (08:48)
[2017-01-06] MEDS: CEFTRIAXONE 1 GM/D5W RTU 1 GM/50 ML RTUPB IV SCH (08:48)
[2017-01-06] MEDS: FLUCONAZOLE 100 MG TABLET PO SCH (08:48)
[2017-01-06] MEDS: CITALOPRAM HYDROBROMIDE 20 MG TABLET PO SCH (08:49)
[2017-01-06] MEDS: ASPIRIN 81 MG TABLET, ENT COATED PO SCH (08:49)
[2017-01-06] MEDS: FINASTERIDE 5 MG TABLET PO SCH (08:49)
[2017-01-06] MEDS: NAMENDA 28 MG PO SCH (08:50)
[2017-01-06] MEDS: DOXAZOSIN MESYLATE 4 MG TABLET PO SCH (08:50)
[2017-01-06] MEDS: AMLODIPINE BESYLATE 5 MG TABLET PO SCH (08:50)
--- NOTE | 2017-01-06 14:50 | PDOC PROGRESS REPORT ---
Subjective Progress Note for:: 01/06/17 Subjective:: Patient seen by the bedside, he has multiple comorbid conditions, admitted because of pneumonia, is a DNR status. Physical Exam Vital Signs: Temp Pulse Resp BP Pulse Ox 97.9 F 86 16 128/62 H 100 01/06/17 11:53 01/06/17 14:42 01/06/17 14:42 01/06/17 11:53 01/06/17 11:53 Intake & Output 01/05/17 01/06/17 01/07/17 06:59 06:59 06:59 Intake Total 1962 1715 179 Balance 1962 1714 355 Weight 76 kg 79.2 kg General appearance: PRESENT: no acute distress Eye exam: PRESENT: PERRLA Respiratory exam: PRESENT: clear to auscultation madai Cardiovascular exam: PRESENT: +S1, +S2 GI/Abdominal exam: PRESENT: soft Results Laboratory Results: 01/04/17 03:53 01/04/17 03:53 Impressions: Chest X-Ray 01/02/17 00:00 IMPRESSION: Ill-defined increased density in the left retrocardiac area which could represent atelectatic changes or minimal infiltrate. Remaining lung anna are clear. Other findings as noted above Assessment & Plan - Diagnosis (1) Erendira cystitis Is this a current diagnosis for this admission?: Yes (2) Depression Qualifiers: Depression Type: major depressive disorder Psychotic features: without psychotic features Is this a current diagnosis for this admission?: Yes (3) HLD (hyperlipidemia) Qualifiers: Hyperlipidemia type: pure hypercholesterolemia Qualified Code(s): E78.00 - Pure hypercholesterolemia, unspecified; E78.0 - Pure hypercholesterolemia Is this a current diagnosis for this admission?: Yes (4) Hypothyroidism Qualifiers: Hypothyroidism type: acquired Qualified Code(s): E03.9 - Hypothyroidism, unspecified Is this a current diagnosis for this admission?: Yes (5) SIRS (systemic inflammatory response syndrome) Is this a current diagnosis for this admission?: Yes (6) Urinary tract infection Qualifiers: Urinary tract infection type: site unspecified Hematuria presence: without hematuria Qualified Code(s): N39.0 - Urinary tract infection, site not specified Is this a current diagnosis for this admission?: Yes (7) Anemia of chronic disease Is this a current diagnosis for this admission?: Yes (8) Aspiration pneumonia Qualifiers: Aspiration pneumonia type: unspecified Laterality: unspecified laterality Lung location: unspecified part of lung Qualified Code(s) : J69.0 - Pneumonitis due to inhalation of food and vomit Is this a current diagnosis for this admission?: Yes - Plan Summary Plan Summary: Continue IV antibiotic
[2017-01-06] MEDS: NORMAL SALINE 1000 ML 1,000 ML IV PRN (17:13)
[2017-01-06] MEDS: LEVOFLOXACIN 500 MG TABLET PO SCH (17:13)
[2017-01-06] MEDS: LATANOPROST 0.005% OPH SOLN 2.5 ML OU SCH (21:25)
[2017-01-06] MEDS: SIMVASTATIN 10 MG TABLET PO SCH (22:20)
[2017-01-06] MEDS: DONEPEZIL 23 MG PO SCH (22:30)
[2017-01-07] MEDS: ALBUTEROL SULFATE 0.083% NEB 2.5 MG/3 ML AMPUL NEB PRN ×5 (01:47→22:35)
[2017-01-07] MEDS: LANSOPRAZOLE 30 MG TAB.RAP.DR PO SCH (06:25)
[2017-01-07] MEDS: LEVOTHYROXINE SODIUM 0.075 MG TABLET PO SCH (06:25)
[2017-01-07] MEDS: NAMENDA 28 MG PO SCH (10:01)
[2017-01-07] MEDS: CEFTRIAXONE 1 GM/D5W RTU 1 GM/50 ML RTUPB IV SCH (10:04)
[2017-01-07] MEDS: CITALOPRAM HYDROBROMIDE 20 MG TABLET PO SCH (10:05)
[2017-01-07] MEDS: FLUCONAZOLE 100 MG TABLET PO SCH (10:05)
[2017-01-07] MEDS: DOXAZOSIN MESYLATE 4 MG TABLET PO SCH (10:05)
[2017-01-07] MEDS: AMLODIPINE BESYLATE 5 MG TABLET PO SCH (10:05)
[2017-01-07] MEDS: FINASTERIDE 5 MG TABLET PO SCH (10:05)
[2017-01-07] MEDS: ASPIRIN 81 MG TABLET, ENT COATED PO SCH (10:05)
[2017-01-07] MEDS: ENOXAPARIN SODIUM INJ 40 MG/0.4 ML DISP.SYRIN SUBCUT SCH (10:05)
[2017-01-07] MEDS: NORMAL SALINE 1000 ML 1,000 ML IV PRN (10:21)
--- NOTE | 2017-01-07 14:37 | PDOC PROGRESS REPORT ---
Subjective Progress Note for:: 01/07/17 Subjective:: Patient seen by the bedside, he has multiple comorbid conditions, admitted because of pneumonia, is a DNR status. Physical Exam Vital Signs: Temp Pulse Resp BP Pulse Ox 98.1 F 92 24 H 108/56 L 97 01/07/17 11:30 01/07/17 11:30 01/07/17 11:30 01/07/17 11:30 01/07/17 11:30 Intake & Output 01/06/17 01/07/17 01/08/17 06:59 06:59 06:59 Intake Total 1715 2 240 Balance 1712 240 Weight 79.2 kg 77.2 kg General appearance: PRESENT: no acute distress Eye exam: PRESENT: PERRLA Respiratory exam: PRESENT: crackles Cardiovascular exam: PRESENT: +S1, +S2 GI/Abdominal exam: PRESENT: soft Neurological exam: PRESENT: alert Results Laboratory Results: 01/04/17 03:53 01/04/17 03:53 Impressions: Chest X-Ray 01/02/17 00:00 IMPRESSION: Ill-defined increased density in the left retrocardiac area which could represent atelectatic changes or minimal infiltrate. Remaining lung anna are clear. Other findings as noted above Assessment & Plan - Diagnosis (1) Erendira cystitis Is this a current diagnosis for this admission?: Yes (2) Depression Qualifiers: Depression Type: major depressive disorder Psychotic features: without psychotic features Is this a current diagnosis for this admission?: Yes (3) HLD (hyperlipidemia) Qualifiers: Hyperlipidemia type: pure hypercholesterolemia Qualified Code(s): E78.00 - Pure hypercholesterolemia, unspecified; E78.0 - Pure hypercholesterolemia Is this a current diagnosis for this admission?: Yes (4) Hypothyroidism Qualifiers: Hypothyroidism type: acquired Qualified Code(s): E03.9 - Hypothyroidism, unspecified Is this a current diagnosis for this admission?: Yes (5) SIRS (systemic inflammatory response syndrome) Is this a current diagnosis for this admission?: Yes (6) Urinary tract infection Qualifiers: Urinary tract infection type: site unspecified Hematuria presence: without hematuria Qualified Code(s): N39.0 - Urinary tract infection, site not specified Is this a current diagnosis for this admission?: Yes (7) Anemia of chronic disease Is this a current diagnosis for this admission?: Yes (8) Aspiration pneumonia Qualifiers: Aspiration pneumonia type: unspecified Laterality: unspecified laterality Lung location: unspecified part of lung Qualified Code(s) : J69.0 - Pneumonitis due to inhalation of food and vomit Is this a current diagnosis for this admission?: Yes - Plan Summary Plan Summary: Continue present treatment
[2017-01-07] MEDS: LATANOPROST 0.005% OPH SOLN 2.5 ML OU SCH (22:03)
[2017-01-07] MEDS: DONEPEZIL 23 MG PO SCH (22:14)
[2017-01-07] MEDS: SIMVASTATIN 10 MG TABLET PO SCH (22:14)
[2017-01-08] MEDS: ALBUTEROL SULFATE 0.083% NEB 2.5 MG/3 ML AMPUL NEB PRN ×4 (04:10→22:58)
[2017-01-08] MEDS: LANSOPRAZOLE 30 MG TAB.RAP.DR PO SCH (06:56)
[2017-01-08] MEDS: LEVOTHYROXINE SODIUM 0.075 MG TABLET PO SCH (06:56)
[2017-01-08] MEDS: CEFTRIAXONE 1 GM/D5W RTU 1 GM/50 ML RTUPB IV SCH (10:21)
[2017-01-08] MEDS: ENOXAPARIN SODIUM INJ 40 MG/0.4 ML DISP.SYRIN SUBCUT SCH (10:24)
[2017-01-08] MEDS: NAMENDA 28 MG PO SCH (10:29)
[2017-01-08] MEDS: DOXAZOSIN MESYLATE 4 MG TABLET PO SCH (10:29)
[2017-01-08] MEDS: ASPIRIN 81 MG TABLET, ENT COATED PO SCH (10:30)
[2017-01-08] MEDS: CITALOPRAM HYDROBROMIDE 20 MG TABLET PO SCH (10:30)
[2017-01-08] MEDS: FLUCONAZOLE 100 MG TABLET PO SCH (10:30)
[2017-01-08] MEDS: FINASTERIDE 5 MG TABLET PO SCH (10:30)
[2017-01-08] MEDS: AMLODIPINE BESYLATE 5 MG TABLET PO SCH (10:31)
--- NOTE | 2017-01-08 20:28 | PDOC PROGRESS REPORT ---
Subjective Progress Note for:: 01/08/17 Subjective:: Patient remain on oral Diflucan and antibiotic coverage. No fever. No observed chest pain or difficulty with breathing. No nausea or vomiting. Tolerating assisted oral feeding. Physical Exam Vital Signs: Temp Pulse Resp BP Pulse Ox 98.1 F 81 16 128/64 H 96 01/08/17 15:30 01/08/17 17:50 01/08/17 17:50 01/08/17 15:30 01/08/17 15:30 Intake & Output 01/07/17 01/08/17 01/09/17 06:59 06:59 06:59 Intake Total 2091 1605 1376 Output Total 3 Balance 2091 1605 1373 Weight 77.2 kg Physical Exam: General appearance: PRESENT: no acute distress Head exam: PRESENT: atraumatic, normocephalic Eye exam: PRESENT: conjunctiva pink, EOMI, PERRLA. ABSENT: scleral icterus Mouth exam: PRESENT: moist Respiratory exam: PRESENT: Minimal expiratory wheezing and rhonchi, decreased breath sounds - at lung bases Cardiovascular exam: PRESENT: RRR. ABSENT: diastolic murmur, rubs, systolic murmur GI/Abdominal exam: PRESENT: normal bowel sounds, soft. ABSENT: distended, guarding, mass, organomegaly, rebound, tenderness Extremities exam: ABSENT: pedal edema Musculoskeletal exam: PRESENT: deformity - related to multiple joint involvement with arthritis Neurological exam: PRESENT: altered - related to his advance dementia Psychiatric exam: PRESENT: appropriate affect Skin exam: PRESENT: dry, warm, diffuse ecchymotic lesion on face. Results Laboratory Results: 01/04/17 03:53 01/04/17 03:53 Impressions: Chest X-Ray 01/02/17 00:00 IMPRESSION: Ill-defined increased density in the left retrocardiac area which could represent atelectatic changes or minimal infiltrate. Remaining lung anna are clear. Other findings as noted above Assessment & Plan - Diagnosis (1) SIRS (systemic inflammatory response syndrome) Is this a current diagnosis for this admission?: YesPlan: Improved. See attending physician orders (2) COPD (chronic obstructive pulmonary disease) Qualifiers: COPD type: unspecified COPD Qualified Code(s): J44.9 - Chronic obstructive pulmonary disease, unspecified Is this a current diagnosis for this admission?: YesPlan: See attending physician orders (3) Erendira cystitis Is this a current diagnosis for this admission?: YesPlan: See attending physician orders. currently on oral Diflucan therapy. (4) Urinary tract infection Qualifiers: Urinary tract infection type: site unspecified Hematuria presence: without hematuria Qualified Code(s): N39.0 - Urinary tract infection, site not specified Is this a current diagnosis for this admission?: YesPlan: See attending physician orders. Urine culture is significant for Erendira species. (5) Hypertension Qualifiers: Hypertension type: essential hypertension Qualified Code(s): I10 - Essential (primary) hypertension Is this a current diagnosis for this admission?: YesPlan: See admitting physician orders. (6) Hypothyroidism Qualifiers: Hypothyroidism type: acquired Qualified Code(s): E03.9 - Hypothyroidism, unspecified Is this a current diagnosis for this admission?: YesPlan: See admitting physician orders (7) Depression Qualifiers: Depression Type: major depressive disorder Psychotic features: without psychotic features Is this a current diagnosis for this admission?: YesPlan: See admitting physician orders (8) Dementia Qualifiers: Dementia type: Alzheimer's disease Is this a current diagnosis for this admission?: YesPlan: See admitting physician orders (9) HLD (hyperlipidemia) Qualifiers: Hyperlipidemia type: pure hypercholesterolemia Qualified Code(s): E78.00 - Pure hypercholesterolemia, unspecified; E78.0 - Pure hypercholesterolemia Is this a current diagnosis for this admission?: YesPlan: See admitting physician orders - Time Time Spent with patient: 25-34 minutes Medications reviewed and adjusted accordingly: Yes Anticipated discharge: Home with Homehealth Within: Other - Inpatient Certification 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
[2017-01-08] MEDS: SIMVASTATIN 10 MG TABLET PO SCH (22:44)
[2017-01-08] MEDS: DONEPEZIL 23 MG PO SCH (22:44)
[2017-01-08] MEDS: LATANOPROST 0.005% OPH SOLN 2.5 ML OU SCH (22:50)
[2017-01-08] MEDS: NORMAL SALINE 1000 ML 1,000 ML IV PRN (23:40)
[2017-01-09] MEDS: LEVOTHYROXINE SODIUM 0.075 MG TABLET PO SCH (05:40)
[2017-01-09] MEDS: LANSOPRAZOLE 30 MG TAB.RAP.DR PO SCH (05:40)
[2017-01-09] MEDS: ALBUTEROL SULFATE 0.083% NEB 2.5 MG/3 ML AMPUL NEB PRN ×3 (05:51→19:48)
[2017-01-09] MEDS: CEFTRIAXONE 1 GM/D5W RTU 1 GM/50 ML RTUPB IV SCH (09:39)
[2017-01-09] MEDS: DOXAZOSIN MESYLATE 4 MG TABLET PO SCH (09:41)
[2017-01-09] MEDS: ENOXAPARIN SODIUM INJ 40 MG/0.4 ML DISP.SYRIN SUBCUT SCH (09:42)
[2017-01-09] MEDS: FLUCONAZOLE 100 MG TABLET PO SCH (09:42)
[2017-01-09] MEDS: CITALOPRAM HYDROBROMIDE 20 MG TABLET PO SCH (09:43)
[2017-01-09] MEDS: ASPIRIN 81 MG TABLET, ENT COATED PO SCH (09:43)
[2017-01-09] MEDS: FINASTERIDE 5 MG TABLET PO SCH (09:43)
[2017-01-09] MEDS: AMLODIPINE BESYLATE 5 MG TABLET PO SCH (09:43)
[2017-01-09] MEDS: NAMENDA 28 MG PO SCH (09:44)
--- NOTE | 2017-01-09 17:59 | PDOC DISCHARGE SUMMARY ---
General - Admit/Disc Date/PCP Admission Date/Primary Care Provider: 01/01/17 11:10 AURELIA LUIS MIGUEL Discharge Date: 01/09/17 - Discharge Diagnosis (1) SIRS (systemic inflammatory response syndrome) Is this a current diagnosis for this admission?: Yes (2) COPD (chronic obstructive pulmonary disease) Is this a current diagnosis for this admission?: Yes (3) Erendira cystitis Is this a current diagnosis for this admission?: Yes (4) Urinary tract infection Is this a current diagnosis for this admission?: Yes (5) Hypertension Is this a current diagnosis for this admission?: Yes (6) Hypothyroidism Is this a current diagnosis for this admission?: Yes (7) Depression Is this a current diagnosis for this admission?: Yes (8) Dementia Is this a current diagnosis for this admission?: Yes (9) HLD (hyperlipidemia) Is this a current diagnosis for this admission?: Yes - Additional Information Resuscitation Status: Do Not Resuscitate Discharge Diet: Regular Discharge Activity: Activity As Tolerated Home Medications: Aspirin [Ecotrin 81 mg EC Tablet] 81 mg PO DAILY 12/31/16 Citalopram Hydrobromide [Celexa 20 mg Tablet] 20 mg PO DAILY 12/31/16 Donepezil HCl [Aricept] 23 mg PO DAILY 12/31/16 Doxazosin Mesylate [Cardura] 8 mg PO DAILY 12/31/16 Finasteride [Proscar 5 mg Tablet] 5 mg PO DAILY 12/31/16 Latanoprost [Xalatan 0.005% Oph Soln 2.5 ml] 1 drop OU QHS 12/31/16 Levothyroxine Sodium [Synthroid 0.075 mg Tablet] 0.075 mg PO QAM 12/31/16 Memantine HCl [Namenda Xr] 28 mg PO DAILY 12/31/16 Ranitidine HCl [Zantac 150 mg Tablet] 15 mg PO BID 12/31/16 Simvastatin [Zocor 20 mg Tablet] 20 mg PO QHS 12/31/16 Amlodipine Besylate [Norvasc 5 mg Tablet] 5 mg PO DAILY #30 tablet 01/09/17 History of Present Illness History of Present Illness: ERIC Boaz COLLINS SR is a 81 year old male known to my practice who was brought to ED by EMS personnel with spouse reported decreased responsiveness, fever and nonproductive wet cough for couple of days. Spouse denied any significant aspiration. Patient remain on regular food content at home. She claimed satisfactory chewing before swallowing and full aspiration precautions with feeding. No vomiting. Patient has history of COPD and remain on nebulizer therapy at home. His initial evaluation in the ED was remarkable for abnormal urinalysis and Leukocytosis. He was advised hospitalization for SIRS with possible UTI. Patient has maintained a DNR and DNI status. His comorbidities include advance dementia, COPD, BPH, Osteoarthritis, Hypothyroidism, Hyperlipidemia, and depression. Hospital Course Hospital Course: Patient did respond to antibiotic therapy with strict aspiration precaution during feeding. Blood culture was no growth x 5 days. His urine culture did grew Erendira species and he was adequately treated with Diflucan. His hospital stay was accentuated with elevated blood pressure necessitating addition of Amlodipine to his regimen. He has remain afebrile and will be discharge home today with follow up appointment as instructed upon discharge. Physical Exam Vital Signs: Temp Pulse Resp BP Pulse Ox 98.3 F 82 19 131/53 H 97 01/09/17 15:51 01/09/17 15:51 01/09/17 15:51 01/09/17 15:51 01/09/17 15:51 Intake & Output 01/08/17 01/09/17 01/10/17 06:59 06:59 06:59 Intake Total 1605 1947 180 Output Total 3 Balance 1605 1944 180 Weight 74.8 kg Physical Exam: General appearance: PRESENT: no acute distress Head exam: PRESENT: atraumatic, normocephalic Eye exam: PRESENT: conjunctiva pink, EOMI, PERRLA. ABSENT: scleral icterus Mouth exam: PRESENT: moist Respiratory exam: PRESENT: Minimal expiratory wheezing and rhonchi, decreased breath sounds - at lung bases Cardiovascular exam: PRESENT: RRR. ABSENT: diastolic murmur, rubs, systolic murmur GI/Abdominal exam: PRESENT: normal bowel sounds, soft. ABSENT: distended, guarding, mass, organomegaly, rebound, tenderness Extremities exam: ABSENT: pedal edema Musculoskeletal exam: PRESENT: deformity - related to multiple joint involvement with arthritis Neurological exam: PRESENT: altered - related to his advance dementia Psychiatric exam: PRESENT: appropriate affect Skin exam: PRESENT: dry, warm, diffuse ecchymotic lesion on face. Results Laboratory Results: 01/04/17 03:53 01/04/17 03:53 Impressions: Chest X-Ray 01/02/17 00:00 IMPRESSION: Ill-defined increased density in the left retrocardiac area which could represent atelectatic changes or minimal infiltrate. Remaining lung anna are clear. Other findings as noted above Qualifiers PATEINT BEING DISCHARGED WITH ANY OF THE FOLLOWING DIAGNOSIS?: No Plan Discharge Plan: D/C home today. Follow up in office as instructed upon discharge. Time Spent: Less than 30 Minutes
[2017-01-09 20:52] VITALS: BP 154/43
[2017-01-09] MEDS: DONEPEZIL 23 MG PO SCH (21:35)
[2017-01-09] MEDS: SIMVASTATIN 10 MG TABLET PO SCH (21:44)
[2017-01-09] MEDS: LATANOPROST 0.005% OPH SOLN 2.5 ML OU SCH (21:47)
== END 2017-01-09 22:37 | disposition home or self-care (01) | DRG 728 ==
LOC: ER 11:15 → UNDOADMIN 13:08 → EH 13:08 → 3N 15:18 → EH 01-01 11:10
PROVIDERS: ADMIT Internal Medicine Geriatric Medicine; ATTEND Internal Medicine Geriatric Medicine
PROC: 3E0F73Z Introduction of Anti-inflammatory into Respiratory Tract, Via Natural or Artificial Opening (ICD-10-PCS; principal; 2016-12-31)
DX: B37.41 Candidal cystitis and urethritis (principal); J44.9 Chronic obstructive pulmonary disease, unspecified; I10 Essential (primary) hypertension; E03.9 Hypothyroidism, unspecified; F32.9 Major depressive disorder, single episode, unspecified; E78.5 Hyperlipidemia, unspecified; N40.1 Benign prostatic hyperplasia with lower urinary tract symptoms; M19.90 Unspecified osteoarthritis, unspecified site; Z66 Do not resuscitate; F02.80 Dementia in other diseases classified elsewhere, unspecified severity, without behavioral disturbance, psychotic disturbance, mood disturbance, and anxiety; G30.9 Alzheimer's disease, unspecified; D63.8 Anemia in other chronic diseases classified elsewhere; Z79.82 Long term (current) use of aspirin; Z79.899 Other long term (current) drug therapy; Z87.891 Personal history of nicotine dependence
CPT/HCPCS: 36415; 51701; 71010; 80053; 81001; 82803; 82962; 83605; 85025; 85610; 87040; 87086; 93005; 93010; 94640; 96360; 99285; J0696; J1450; J1650; J1956; J3490; J7030; S0164

== ENCOUNTER 2017-06-22 00:40 | Emergency (ER) | payer MEDICARE, OTHER ==
[2017-06-22] MEDS ORDERED: DEXAMETHASONE SOD PHOS INJ 10 MG/1 ML VIAL IV ONE (01:14)
[2017-06-22] MEDS ORDERED: IPRATROPIUM/ALBUTEROL 0.5-2.5 MG/3 ML AMPUL NEB ONE ×2 (01:14→03:19)
--- NOTE | 2017-06-22 01:24 | ER Document Report ---
ED General - General Stated Complaint: FLU LIKE SYMPTOMS Time Seen by Provider: 06/22/17 00:51 TRAVEL OUTSIDE OF THE [place] IN LAST 30 DAYS: No - HPI Notes: Patient is an 82-year-old male with a history of dementia, COPD, emphysema who presents the ED with spouse complaining of dry semi-productive cough 1 week that has worsened over the last 1-2 days with development of fever today. states that she has noticed that his cough has been worsening and is concerned about pneumonia. She has been using [id number] meds with no relief. He still eating and drinking without any difficulties. He still urinating normally and having normal bowel movements. states that he is at his baseline mentally and does not have any other concerns or complaints at this time. Patient did arrive by EMS and had an albuterol nebulizer treatment performed there and about 500 mL's of fluid given IV. EMS stated that they were able to get his oxygen saturation up from 93% to 100% after the breathing treatment. denies any other nasal artem/discharge, sore throat, trouble swallowing, respiratory distress, abd pain, n/v/d, dysuria, hematuria, or rash. - Related Data Allergies/Adverse Reactions: No Known Allergies Allergy (Verified 08/26/16 15:51) Past Medical History - Social History Smoking Status: Former Smoker - x50yrs ago Family History: Reviewed & Not Pertinent - Past Medical History Cardiac Medical History: Reports: Hx Hypercholesterolemia Pulmonary Medical History: Reports: Hx COPD, Hx Pneumonia Renal/ Medical History: Reports: Hx Benign Prostatic Hyperplasia Psychiatric Medical History: Reports: Hx Dementia, Hx Depression Past Surgical History: Reports: Hx Appendectomy, Hx Bowel Surgery - obstruction , Hx Thyroid Surgery - Immunizations Hx Pneumococcal Vaccination: 05/10/16 Review of Systems - Review of Systems Notes: see hpi. -: Yes ROS unobtainable due to patient's medical condition Physical Exam - Vital signs Vitals: Resp BP Pulse Ox 19 148/54 H 94 06/22/17 03:42 06/22/17 03:42 06/22/17 03:42 Notes: PHYSICAL EXAMINATION: GENERAL: Well-appearing, well-nourished and in no acute distress. Alert, cooperative HEAD: Atraumatic, normocephalic. EYES: Pupils equal round and reactive to light, extraocular movements intact, sclera anicteric, conjunctiva are normal. ENT: Nares patent and without discharge. oropharynx clear without exudates. No tonsilar hypertrophy or erythema. Moist mucous membranes. No sinus tenderness. NECK: Normal range of motion, supple without lymphadenopathy. No rigidity/ meningismus. Chest: nontender. no flail chest. equal rise/fall. LUNGS: + b/l wheezing HEART: Regular rate and rhythm without murmurs, rubs, gallops. ABDOMEN: Soft, nontender, nondistended abdomen. No guarding, no rebound. No masses appreciated. Normal bowel sounds present. No CVA tenderness bilaterally. Musculoskeletal: FROM to passive/active. Strength 5+/5. No calf tenderness. Extremities: No cyanosis, clubbing, or edema b/l. Peripheral pulses 2+. Capillary refill less than 3 seconds. NEUROLOGICAL: Normal sensory, motor exams PSYCH: Normal mood, normal affect. SKIN: Warm, Dry, normal turgor, no rashes or lesions noted. Course - Re-evaluation Re-evalutation: 06/22/17 04:25 Patient is an afebrile, well-hydrated, 82-year-old male who presents ED with acute exacerbation of his COPD and probable bronchitis. Vitals are stable. PE is otherwise unremarkable. Chest x-ray was unremarkable for any acute pathology. CBC, blood gas, CMP was also unremarkable for any acute pathology. Patient was given 1 nebulizer treatment in the ambulance, and 2 duo nebs while in the ED today. He also received 2 g of magnesium along with a Decadron injection. Patient's lung sounds did improve, but he did continue to have mild expiratory wheezes. O2 >95% on RA. On occasion it will dip to low 90's, but then he coughs and it comes right back up. Low suspicion for any ACS, PE, pneumothorax, pericarditis, dissection, severe dehydration, respiratory compromise, or other systemic emergent condition at this time. is aware that condition can change from initial presentation and she needs to monitor symptoms closely and seek medical attention with any acute changes. At this time patient is stable for outpatient therapy. Patient does have a nebulizer and inhaler at home. I will send him home with a prescription for Zithromax. Conservative measures for symptoms otherwise. Recheck with your PCM in 3-5 days. Return to the ED with any worsening/concerning symptoms otherwise as reviewed in discharge. - Vital Signs Vital signs: Temp Pulse Resp BP Pulse Ox 19 148/54 H 94 06/22/17 03:42 06/22/17 03:42 06/22/17 03:42 - Laboratory Result Diagrams: 06/22/17 02:13 06/22/17 02:13 Laboratory results interpreted by me: 06/22/17 06/22/17 02:13 02:13 RBC 3.53 L Hgb 9.6 L Hct 29.7 L RDW 15.8 H Total Protein 5.1 L Albumin 3.1 L Discharge - Discharge Clinical Impression: COPD exacerbation Condition: Stable Disposition: HOME, SELF-CARE Instructions: Bronchitis With Bronchospasm (Wheezing) ([facility]), Bronchodilators ( [facility]), Chronic Obstructive Lung Disease ([facility]), Steroid Medication Injection Additional Instructions: Maintain adequate fluid intake Take meds as directed Use inhalers/nebulizer treatments regularly at home tylenol/ibuprofen as needed over the counter cold medication as needed for symptoms Humidified air may help F/u: with your PCM in 3-5 days for a recheck Return to the ED with any fever, worsening pain, chest pain, palpitations, syncope, worsening AMES, neck pain/stiffness, shortness of breath, wheezing, drooling, trouble swallowing/breathing, abdominal pain, n/v/d, rash, or worsening/concerning symptoms otherwise. Prescriptions: Azithromycin [Zithromax 250 mg Tablet] 250 mg PO ASDIR PRN #6 tablet PRN Reason: Referrals: AURELIA BOLANOS MD [Primary Care Provider] - 06/25/17
--- NOTE | 2017-06-22 01:56 | RADIOLOGY REPORT (SQ) ---
EXAM DESCRIPTION: CHEST SINGLE VIEW COMPLETED DATE/TIME: 06/22/2017 1:40 am REASON FOR STUDY: cough, fever COMPARISON: 6.6.17, 09/25/2009. EXAM PARAMETERS: NUMBER OF VIEWS: One view. TECHNIQUE: Single frontal radiographic view of the chest acquired. RADIATION DOSE: NA LIMITATIONS: None. FINDINGS: LUNGS AND PLEURA: No opacities, masses or pneumothorax. No pleural effusion. MEDIASTINUM AND HILAR STRUCTURES: No masses. Contour normal. HEART AND VASCULAR STRUCTURES: Heart normal in size. Atherosclerosis. BONES: Chronic sclerotic lesion of the right proximal humerus. HARDWARE: None in the chest. OTHER: No other significant finding. IMPRESSION: No acute cardiopulmonary findings. TECHNICAL DOCUMENTATION: JOB ID: [id number] Dr. TATTOFF- All Rights Reserved
[2017-06-22] MEDS: MAGNESIUM SULFATE/D5W 1 GM/100 ML RTUPB IV SCH ×2 (02:11→03:32)
[2017-06-22 02:34] LABS: ABSOLUTE BASOPHILS # (AUTO) 0.1 10^3/uL (0.0-0.2); ABSOLUTE EOSINOPHILS # (AUTO) 0.3 10^3/uL (0.0-0.6); ABSOLUTE LYMPHOCYTES (AUTO) 1.4 10^3/uL (0.5-4.7); ABSOLUTE MONOCYTES (AUTO) 1.1 10^3/uL (0.1-1.4); ABSOLUTE NEUT (AUTO) 7.1 10^3/uL (1.7-8.2); BASOPHILS % (AUTO) 0.9 % (0-2); EOSINOPHILS % (AUTO) 2.6 % (0-6); HEMATOCRIT 29.7 % (37.9-51.0); HEMOGLOBIN 9.6 g/dL (13.5-17.0); HGB HCT DIFFERENCE -0.9; LYMPHOCYTES % (AUTO) 14.3 % (13-45); MEAN CORPUSCULAR HEMOGLOBIN 27.1 pg (27.0-33.4); MEAN CORPUSCULAR HGB CONC 32.2 g/dL (32.0-36.0); MEAN CORPUSCULAR VOLUME 84 fl (80-97); MONOCYTES % (AUTO) 11.1 % (3-13); RED BLOOD COUNT 3.53 10^6/uL (4.35-5.55); RED CELL DISTRIBUTION WIDTH 15.8 % (11.5-14.0); SEGMENTED NEUTROPHILS % (AUTO) 71.1 % (42-78)
[2017-06-22 02:47] LABS: ALANINE AMINOTRANSFERASE 28 U/L (21-72); ALBUMIN 3.1 g/dL (3.5-5.0); ALKALINE PHOSPHATASE 69 U/L (38-126); ANION GAP 9 (5-19); ASPARTATE AMINO TRANSFERASE 20 U/L (17-59); BILIRUBIN,DIRECT 0.3 mg/dL (0.0-0.4); BILIRUBIN,TOTAL 0.4 mg/dL (0.2-1.3); BLOOD UREA NITROGEN 13 mg/dL (7-20); CALCIUM 8.6 mg/dL (8.4-10.2); CARBON DIOXIDE 28 mmol/L (22-30); CHLORIDE 105 mmol/L (98-107); CREATININE RESULT 0.81 mg/dL (0.52-1.25); GLUCOSE 103 mg/dL (75-110); POTASSIUM 3.9 mmol/L (3.6-5.0); SODIUM 141.6 mmol/L (137-145); TOTAL PROTEIN 5.1 g/dL (6.3-8.2)
[2017-06-22 03:36] LABS: VENOUS BLOOD BASE EXCESS 3.5 mmol/L; VENOUS BLOOD HCO3 29.4 mmol/L (20-32); VENOUS BLOOD PCO2 49.7 mmHg (35-63); VENOUS BLOOD PH 7.39 (7.30-7.42)
[2017-06-22 03:54] VITALS: BP 148/54
== END 2017-06-22 05:59 | disposition home or self-care (01) ==
LOC: ER 00:40
DX: J44.1 Chronic obstructive pulmonary disease with (acute) exacerbation (principal); F03.90 Unspecified dementia, unspecified severity, without behavioral disturbance, psychotic disturbance, mood disturbance, and anxiety; R05 Cough; Z87.891 Personal history of nicotine dependence
CPT/HCPCS: 94640 ×2; 99284; 96375; 96365; 96366; 36415; 85025; 80053; 82803; 71010; J3475; J1100; A9270; J7620

== ENCOUNTER 2018-04-12 19:43 | Emergency (ER) | payer MEDICARE, OTHER ==
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
[2018-04-12] MEDS: IPRATROPIUM/ALBUTEROL 0.5-2.5 MG/3 ML AMPUL NEB SCH (20:30)
[2018-04-12] MEDS: DOXAZOSIN MESYLATE 4 MG TABLET PO SCH (22:33)
[2018-04-12] MEDS: FAMOTIDINE 20 MG TABLET PO SCH (22:35)
[2018-04-12] MEDS: LATANOPROST 0.005% OPH SOLN 2.5 ML OU SCH (22:35)
[2018-04-12] MEDS: SIMVASTATIN 10 MG TABLET PO SCH (22:35)
[2018-04-13] MEDS: IPRATROPIUM/ALBUTEROL 0.5-2.5 MG/3 ML AMPUL NEB SCH ×4 (03:23→21:14)
[2018-04-13] MEDS: LEVOTHYROXINE SODIUM 0.075 MG TABLET PO SCH (05:41)
[2018-04-13] MEDS: ASPIRIN 81 MG TABLET, ENT COATED PO SCH (09:40)
[2018-04-13] MEDS: FINASTERIDE 5 MG TABLET PO SCH (09:40)
[2018-04-13] MEDS: CITALOPRAM HYDROBROMIDE 20 MG TABLET PO SCH (09:41)
[2018-04-13] MEDS: AMLODIPINE BESYLATE 5 MG TABLET PO SCH (09:41)
[2018-04-13] MEDS: FAMOTIDINE 20 MG TABLET PO SCH ×2 (09:41→22:11)
[2018-04-13] MEDS ORDERED: FAMOTIDINE 20 MG TABLET PO SCH (10:00)
[2018-04-13] MEDS ORDERED: (PENDING PHARMACY ID) (Ranitidine Hcl [Zantac 150 Mg Tablet] 150 MG) PO SCH (10:00)
[2018-04-13] MEDS ORDERED: DOXAZOSIN MESYLATE 4 MG TABLET PO SCH (10:00)
[2018-04-13] MEDS ORDERED: DONEPEZIL HCL 23 MG PO SCH (10:00)
[2018-04-13] MEDS: FLUTICASONE NASAL SPRAY 50 MCG/SPRY 120 SPRAY/16 GM NASL SCH (10:00)
[2018-04-13] MEDS ORDERED: (PENDING PHARMACY ID) (Memantine Hcl [Namenda Xr] 28 MG) PO SCH (10:00)
[2018-04-13] MEDS ORDERED: (PENDING PHARMACY ID) (Doxazosin Mesylate [Cardura] 8 MG) PO SCH (10:00)
[2018-04-13] MEDS: LATANOPROST 0.005% OPH SOLN 2.5 ML OU SCH (22:09)
[2018-04-13] MEDS: DOXAZOSIN MESYLATE 4 MG TABLET PO SCH (22:10)
[2018-04-13] MEDS: SIMVASTATIN 10 MG TABLET PO SCH (22:10)
[2018-04-14] MEDS: IPRATROPIUM/ALBUTEROL 0.5-2.5 MG/3 ML AMPUL NEB SCH ×4 (04:03→17:11)
[2018-04-14] MEDS: LEVOTHYROXINE SODIUM 0.075 MG TABLET PO SCH (06:18)
[2018-04-14] MEDS ORDERED: IPRATROPIUM/ALBUTEROL 0.5-2.5 MG/3 ML AMPUL NEB ONE (11:33)
[2018-04-14] MEDS: ASPIRIN 81 MG TABLET, ENT COATED PO SCH (11:43)
[2018-04-14] MEDS: CITALOPRAM HYDROBROMIDE 20 MG TABLET PO SCH (11:43)
[2018-04-14] MEDS: AMLODIPINE BESYLATE 5 MG TABLET PO SCH (11:44)
[2018-04-14] MEDS: FAMOTIDINE 20 MG TABLET PO SCH (11:59)
[2018-04-14] MEDS: FINASTERIDE 5 MG TABLET PO SCH (11:59)
[2018-04-14] MEDS: FLUTICASONE NASAL SPRAY 50 MCG/SPRY 120 SPRAY/16 GM NASL SCH (17:06)
[2018-04-15] MEDS: SIMVASTATIN 10 MG TABLET PO SCH ×2 (01:05→22:44)
[2018-04-15] MEDS: IPRATROPIUM/ALBUTEROL 0.5-2.5 MG/3 ML AMPUL NEB SCH ×5 (01:05→22:45)
[2018-04-15] MEDS: DOXAZOSIN MESYLATE 4 MG TABLET PO SCH ×2 (01:05→22:45)
[2018-04-15] MEDS: LATANOPROST 0.005% OPH SOLN 2.5 ML OU SCH ×2 (01:05→22:46)
[2018-04-15] MEDS: FAMOTIDINE 20 MG TABLET PO SCH ×3 (01:05→22:45)
[2018-04-15] MEDS ORDERED: MAGNESIUM HYDROXIDE SUSP 30 ML UDCUP PO ONE (10:16)
[2018-04-15] MEDS: FLUTICASONE NASAL SPRAY 50 MCG/SPRY 120 SPRAY/16 GM NASL SCH (10:41)
[2018-04-15] MEDS: CITALOPRAM HYDROBROMIDE 20 MG TABLET PO SCH (10:41)
[2018-04-15] MEDS: FINASTERIDE 5 MG TABLET PO SCH (10:41)
[2018-04-15] MEDS: AMLODIPINE BESYLATE 5 MG TABLET PO SCH (10:41)
[2018-04-15] MEDS: ASPIRIN 81 MG TABLET, ENT COATED PO SCH (10:41)
[2018-04-15] MEDS: LEVOTHYROXINE SODIUM 0.075 MG TABLET PO SCH (10:43)
[2018-04-15 14:51] LABS: ABSOLUTE BASOPHILS # (AUTO) 0.1 10^3/uL (0.0-0.2); ABSOLUTE EOSINOPHILS # (AUTO) 0.3 10^3/uL (0.0-0.6); ABSOLUTE LYMPHOCYTES (AUTO) 1.1 10^3/uL (0.5-4.7); ABSOLUTE MONOCYTES (AUTO) 0.7 10^3/uL (0.1-1.4); BASOPHILS % (AUTO) 1.8 % (0-2); EOSINOPHILS % (AUTO) 4.7 % (0-6); HEMATOCRIT 27.3 % (37.9-51.0); HEMOGLOBIN 8.4 g/dL (13.5-17.0); LYMPHOCYTES % (AUTO) 17.6 % (13-45); MEAN CORPUSCULAR HEMOGLOBIN 21.9 pg (27.0-33.4); MEAN CORPUSCULAR HGB CONC 30.8 g/dL (32.0-36.0); MEAN CORPUSCULAR VOLUME 71 fl (80-97); PLATELET COUNT 297 10^3/uL (150-450); RED BLOOD COUNT 3.84 10^6/uL (4.35-5.55); RED CELL DISTRIBUTION WIDTH 17.4 % (11.5-14.0); SEGMENTED NEUTROPHILS % (AUTO) 64.9 % (42-78); TOTAL CELLS COUNTED % (AUTO) 100 %; WHITE BLOOD COUNT 6.2 10^3/uL (4.0-10.5)
[2018-04-15 15:00] LABS: APPEARANCE,URINE SLIGHTLY-CLOUDY; BILIRUBIN,URINE NEGATIVE (NEGATIVE); COLOR,URINE STRAW; GLUCOSE, URINE NEGATIVE (NEGATIVE); KETONES,URINE NEGATIVE (NEGATIVE); PROTEIN,URINE NEGATIVE (NEGATIVE); URINE SPECIFIC GRAVITY 1.008; UROBILINOGEN,URINE NEGATIVE mg/dL (<2.0)
[2018-04-15 15:01] LABS: ALANINE AMINOTRANSFERASE 25 U/L (21-72); ALBUMIN 3.3 g/dL (3.5-5.0); ALKALINE PHOSPHATASE 51 U/L (38-126); ANION GAP 6 (5-19); ASPARTATE AMINO TRANSFERASE 24 U/L (17-59); BILIRUBIN,DIRECT 0.3 mg/dL (0.0-0.4); BILIRUBIN,TOTAL 0.3 mg/dL (0.2-1.3); BLOOD UREA NITROGEN 17 mg/dL (7-20); CALCIUM 8.7 mg/dL (8.4-10.2); CARBON DIOXIDE 29 mmol/L (22-30); CHLORIDE 102 mmol/L (98-107); GLUCOSE 88 mg/dL (75-110); LEUKOCYTE ESTERASE,URINE LARGE (NEGATIVE); NITRITE,URINE NEGATIVE (NEGATIVE); POTASSIUM 4.5 mmol/L (3.6-5.0); SODIUM 137.2 mmol/L (137-145); TOTAL PROTEIN 5.7 g/dL (6.3-8.2)
[2018-04-15] MEDS ORDERED: LEVOFLOXACIN 750 MG/D5W RTU 750 MG/150 ML RTUPB IV ONE (15:17)
--- NOTE | 2018-04-15 16:20 | RADIOLOGY REPORT (SQ) ---
EXAM DESCRIPTION: ACUTE ABDOMEN SERIES COMPLETED DATE/TIME: 04/15/2018 4:03 pm REASON FOR STUDY: ABDOMINAL PAIN, H/O SBO COMPARISON: Chest x-ray 2011 NUMBER OF VIEWS: Three views. TECHNIQUE: Frontal chest, supine abdomen and upright/decubitus abdomen radiographic images acquired. LIMITATIONS: None. FINDINGS: CHEST: Lungs clear of infiltrates. FREE AIR: None. No abnormal gas collections. BOWEL GAS PATTERN: Dilated small bowel loops. There is gas and fecal material through the colon. CALCIFICATIONS: No suspicious calcifications. HARDWARE: None in the abdomen. SOFT TISSUES: No gross mass or suggestion of organomegaly. 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 Stable OTHER: No other significant finding. IMPRESSION: Early or partial small bowel obstruction. TECHNICAL DOCUMENTATION: JOB ID: [id number] [employer]- All Rights Reserved Reading location - IP/workstation name: [email or web address]
--- NOTE | 2018-04-15 20:39 | RADIOLOGY REPORT (SQ) ---
EXAM DESCRIPTION: CT ABD/PELVIS WITH IV ORAL COMPLETED DATE/TIME: 04/15/2018 8:12 pm REASON FOR STUDY: PAIN, SBO SUSPECTED ON PLAIN FILM COMPARISON: None. TECHNIQUE: CT scan of the abdomen and pelvis performed using helical scanning technique with dynamic intravenous contrast injection. Oral contrast. Images reviewed with lung, soft tissue, and bone win dows. Reconstructed coronal and sagittal MPR images reviewed. Delayed images for evaluation of the ur inary system also acquired. All images stored on PACS. All CT scanners at this facility use dose modulation, iterative reconstruction, and/or weight based d osing when appropriate to reduce radiation dose to as low as reasonably achievable (ALARA). [facility]: Dose Right [facility]: CareDose [facility]: Dose Right [facility]: Teradose 4D [facility]: [employer] CONTRAST TYPE AND DOSE: contrast/concentration: Isovue 350.00 mg/ml; Total Contrast Delivered: 83.0 ml; Total Saline Delivered: 30.0 ml RENAL FUNCTION: BUN 17 creatinine 0.8 RADIATION DOSE: CT Rad equipment meets quality standard of care and radiation dose reduction techniq ues were employed. CTDIvol: 11.4 - 15.9 mGy. DLP: 1488 mGy-cm.. LIMITATIONS: None. FINDINGS: LOWER CHEST: No significant findings. No nodules or infiltrates. LIVER: Normal size. No masses. No dilated ducts. SPLEEN: Normal size. No focal lesions. PANCREAS: No masses. No significant calcifications. No adjacent inflammation or peripancreatic fluid collections. Pancreatic duct not dilated. GALLBLADDER: No identified stones by CT criteria. No inflammatory changes to suggest cholecystitis. ADRENAL GLANDS: No significant masses or asymmetry. RIGHT KIDNEY AND URETER: No solid masses. Vascular calcifications. No hydronephrosis or hydrouret er. LEFT KIDNEY AND URETER: No solid masses. Vascular calcifications. No hydronephrosis or hydrourete r. AORTA AND VESSELS: No aneurysm. No dissection. Renal arteries, SMA, celiac without stenosis. RETROPERITONEUM: No retroperitoneal adenopathy, hemorrhage or masses. BOWEL AND PERITONEAL CAVITY: Mildly dilated small bowel. There is some contrast in the colon. APPENDIX: Surgically absent. PELVIS: There appear to be some calcifications in the bladder. Considerable stool is present in the rectum. ABDOMINAL WALL: No masses. No hernias. BONES: No significant or acute findings. OTHER: No other significant finding. IMPRESSION: 1. Mild partial distal small bowel obstruction. 2. There are some calcifications in the bladder. 3. Considerable stool is present in the rectum. Cannot exclude fecal impaction. TECHNICAL DOCUMENTATION: JOB ID: [id number] Quality ID # [id number]: Final reports with documentation of one or more dose reduction techniques (e.g., Au tomated exposure control, adjustment of the mA and/or kV according to patient size, use of iterative reconstruction technique) 2010 [employer]- All Rights Reserved Reading location - IP/workstation name: [email or web address]
[2018-04-15] MEDS ORDERED: MINERAL OIL 30 ML UDCUP PR ONE (21:23)
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
[2018-04-16] MEDS: IPRATROPIUM/ALBUTEROL 0.5-2.5 MG/3 ML AMPUL NEB SCH ×2 (06:46→11:41)
[2018-04-16] MEDS: LEVOTHYROXINE SODIUM 0.075 MG TABLET PO SCH (06:48)
[2018-04-16 10:57] VITALS: BP 135/48
== END 2018-04-16 12:06 | disposition home or self-care (01) ==
LOC: ER 19:43 → EH 04-15 21:03 → UNDOADMIN 04-15 21:03 → ER 04-16 12:06
DX: J45.40 Moderate persistent asthma, uncomplicated (principal); K56.600 Partial intestinal obstruction, unspecified as to cause; J44.9 Chronic obstructive pulmonary disease, unspecified; G30.9 Alzheimer's disease, unspecified; F02.80 Dementia in other diseases classified elsewhere, unspecified severity, without behavioral disturbance, psychotic disturbance, mood disturbance, and anxiety; R50.9 Fever, unspecified; Z60.9 Problem related to social environment, unspecified; Z87.01 Personal history of pneumonia (recurrent)
CPT/HCPCS: 94640; 99285; 36415; 87086; 85025; 80053; 81001; A9270 ×29; J3490 ×3; J1956; J7620

== ENCOUNTER 2018-07-31 11:44 | Day surgery (SDC) | payer MEDICARE, OTHER ==
[2018-07-29 10:37] LABS: HEMATOCRIT 24.9 % (37.9-51.0); MEAN CORPUSCULAR HEMOGLOBIN 20.2 pg (27.0-33.4); MEAN CORPUSCULAR HGB CONC 30.2 g/dL (32.0-36.0); MEAN CORPUSCULAR VOLUME 67 fl (80-97); PLATELET COUNT 304 10^3/uL (150-450); RED BLOOD COUNT 3.72 10^6/uL (4.35-5.55); RED CELL DISTRIBUTION WIDTH 17.6 % (11.5-14.0); WHITE BLOOD COUNT 6.2 10^3/uL (4.0-10.5)
[2018-07-29 11:08] LABS: HEMOGLOBIN 7.5 g/dL (13.5-17.0)
[2018-07-29 11:53] LABS: ANION GAP 7 (5-19); BLOOD UREA NITROGEN 16 mg/dL (7-20); CALCIUM 9.4 mg/dL (8.4-10.2); CARBON DIOXIDE 27 mmol/L (22-30); CHLORIDE 107 mmol/L (98-107); GLUCOSE 101 mg/dL (75-110); POTASSIUM 4.5 mmol/L (3.6-5.0); SODIUM 140.6 mmol/L (137-145)
--- NOTE | 2018-07-29 16:34 | EKG REPORT ---
SEVERITY:- ABNORMAL ECG - ATRIAL FIBRILLATION : Confirmed by: Karla Flores MD 29-Jul-2018 16:33:31
[~2018-07-31 11:44] MED LIST: CEFAZOLIN 1 GM/D5W RTU 1 GM/50 ML RTUPB IV PRN; LACTATED RINGERS 1000 ML IV PRN; LIDOCAINE 0.5% INJ-PF (5 MG/ML) 50 ML SDV SUBCUT PRN
[2018-07-31] MEDS ORDERED: MIDAZOLAM 2 MG/2 ML INJ ONE (12:08)
[2018-07-31] MEDS ORDERED: PROPOFOL INJ 200 MG/20 ML VIAL IV ONE (12:08)
[2018-07-31] MEDS ORDERED: FENTANYL CITRATE INJ/PF 100 MCG/2 ML AMPUL ONE (12:08)
[2018-07-31] MEDS ORDERED: POVIDONE-IODINE 5% OPH PREP SOLN 30 ML ONE ×2 (12:10→14:49)
[2018-07-31] MEDS ORDERED: LIDOCAINE 1%/EPINEPHRINE INJ 20 ML VIAL ONE (12:10)
[2018-07-31] MEDS ORDERED: LIDOCAINE 1% INJ-PF (10 MG/ML) 30 ML SDV ONE (12:10)
[2018-07-31] MEDS ORDERED: CEFAZOLIN 1 GM/D5W RTU 1 GM/50 ML RTUPB IV ONE (13:22)
[2018-07-31 13:42] LABS: HEMATOCRIT 23.7 % (37.9-51.0); MEAN CORPUSCULAR HEMOGLOBIN 19.8 pg (27.0-33.4); MEAN CORPUSCULAR HGB CONC 30.1 g/dL (32.0-36.0); MEAN CORPUSCULAR VOLUME 66 fl (80-97); PLATELET COUNT 299 10^3/uL (150-450); RED BLOOD COUNT 3.59 10^6/uL (4.35-5.55); RED CELL DISTRIBUTION WIDTH 17.4 % (11.5-14.0); WHITE BLOOD COUNT 6.1 10^3/uL (4.0-10.5)
[2018-07-31 13:44] LABS: HEMOGLOBIN 7.1 g/dL (13.5-17.0)
[2018-07-31] MEDS ORDERED: DIPHENHYDRAMINE HCL 50 MG/ML VIAL IV PRN (14:58)
[2018-07-31] MEDS ORDERED: MEPERIDINE HCL/PF INJ 25 MG/1 ML DISP.SYRIN IV PRN (14:58)
[2018-07-31] MEDS ORDERED: FENTANYL CITRATE INJ/PF 100 MCG/2 ML AMPUL IV PRN ×2 (14:58)
[2018-07-31] MEDS ORDERED: PROMETHAZINE HCL INJ 25 MG/1 ML VIAL IV PRN (14:58)
[2018-07-31] MEDS ORDERED: OXYCODONE-ACETAMINOPHEN 5-325 MG TABLET PO PRN (15:25)
--- NOTE | 2018-07-31 15:25 | Discharge Summary ---
Discharge Summary (SDC) - Discharge Final Diagnosis: Multiple skin lesions of face Date of Surgery: 07/31/18 Discharge Date: 07/31/18 Condition: Stable Treatment or Instructions: WOUND CARE: 1) Do not get areas wet for 48 hours. After that time may clean areas with warm water/soap, pat dry. Leave steri strips (paper band aids) intact until follow up appointment. 2) If bleeding occurs, hold consistent pressure for 10 minutes. Call clinic if symptoms worsen. PAIN MANAGEMENT: 1) May take Toradol 10mg one pill by mouth every six hours as needed for pain. FOLLOW UP: 1) Follow up at [facility] in 7 days for wound check. Call clinic sooner with questions/concerns. Prescriptions: Ketorolac Tromethamine [Toradol 10 mg Tablet] 10 mg PO Q6HP PRN #20 tablet PRN Reason: Referrals: AURELIA BOLANOS MD [Primary Care Provider] - Discharge Diet: As Tolerated Discharge Activity: Activity As Tolerated Report the Following to Your Physician Immediately: Increase in Pain, Fever over 101 Degrees, Unusual Bleeding, Redness, Swelling, Warmth, Increased Soreness, Drainage-Foul Smelling
--- NOTE | 2018-07-31 15:26 | Operative Report ---
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 including the left nasal mingo, right nasal mingo and right malar region POSTOPERATIVE DIAGNOSIS: Same OPERATION: Complete excision of the above described lesions left nasal mingo, 1.5 cm, or right nasal mingo 2 cm and right malar region, 2 cm., with primary closure SURGEON: MALACHI REVELES METAL FURNITURE REPAIRER: STEPHEN BARRAGAN ANESTHESIA: LMAC TISSUE REMOVED OR ALTERED: Skin lesions as described below submitted separately to pathology COMPLICATIONS: None ESTIMATED BLOOD LOSS: 10 cc INTRAOPERATIVE FINDINGS: See below PROCEDURE: Patient was taken from the preop holding area the main operating room where LMAC anesthesia was induced. All 3 skin lesions involving the left nose right nose and right cheek were prepped and draped in a sterile fashion. Surgical plan surgical timeout were conducted. All 3 skin lesions were excised in their entirety down to subcutaneous layer. The right malar lesion site was closed in a running continuous fashion with 3-0 Vicryl suture; the left nasal mingo lesion site was closed with a running 3-0 Vicryl suture and the right nasal mingo lesion closed with a running 4-0 Ethilon suture. Patient tolerated procedure well. Wounds dressed with benzoin and Steri-Strips. All 3 specimens were sent to pathology in separate containers. The patient tolerated the procedure well and was taken to the recovery room in stable condition. The physician urgent care physician assistant, Ms. Long, provided assistance during this case by: Assisting with retracting tissue, instillation of local anesthesia and closure of skin incisions.
[2018-07-31] MEDS ORDERED: ALBUTEROL SULFATE 0.083% NEB 2.5 MG/3 ML AMPUL NEB ONE (17:02)
[2018-07-31 17:33] LABS: HEMOGLOBIN 8.2 g/dL (13.5-17.0); MEAN CORPUSCULAR HEMOGLOBIN 20.6 pg (27.0-33.4); MEAN CORPUSCULAR HGB CONC 30.4 g/dL (32.0-36.0); MEAN CORPUSCULAR VOLUME 68 fl (80-97); PLATELET COUNT 303 10^3/uL (150-450); RED BLOOD COUNT 3.98 10^6/uL (4.35-5.55); RED CELL DISTRIBUTION WIDTH 18.3 % (11.5-14.0); WHITE BLOOD COUNT 6.2 10^3/uL (4.0-10.5)
[2018-07-31 18:00] VITALS: BP 151/67
== END 2018-07-31 17:55 | disposition home or self-care (01) ==
LOC: OROUT 11:44
PROVIDERS: ATTEND Surgery
DX: C44.321 Squamous cell carcinoma of skin of nose (principal); C44.329 Squamous cell carcinoma of skin of other parts of face; J43.9 Emphysema, unspecified; F03.90 Unspecified dementia, unspecified severity, without behavioral disturbance, psychotic disturbance, mood disturbance, and anxiety; I83.90 Asymptomatic varicose veins of unspecified lower extremity; Z85.828 Personal history of other malignant neoplasm of skin; Z79.01 Long term (current) use of anticoagulants; Z87.891 Personal history of nicotine dependence; Z79.899 Other long term (current) drug therapy; Z66 Do not resuscitate; M19.90 Unspecified osteoarthritis, unspecified site; E89.0 Postprocedural hypothyroidism; Z01.818 Encounter for other preprocedural examination
CPT/HCPCS: 93005; 86900; 86901; 36415 ×2; 36430; 86850; 85027 ×2; 80048; 86920; 88305 ×2; 93010; 11646; P9016; J0690; J3490 ×2; J2704; A9270; 300; J2250; J3010

== ENCOUNTER → 2018-08-12 | Outpatient (CLI) | payer MEDICARE, OTHER ==
[2018-08-12 12:16] LABS: IRON(TIBC) 10.3 ug/dL (49-181)
[2018-08-12 12:34] LABS: FREE T3 3.32 pg/mL (2.77-5.27); FREE T4 (FREE THYROXINE) 1.46 ng/dL (0.78-2.19)
[2018-08-12 12:48] LABS: THYROID STIMULATING HORMONE 1.29 uIU/mL (0.47-4.68)
== END ==
LOC: OD 11:06
PROVIDERS: ATTEND Internal Medicine Geriatric Medicine
DX: D50.9 Iron deficiency anemia, unspecified (principal); R53.83 Other fatigue
CPT/HCPCS: 36415; 82306; 82607; 82728; 83540; 83550; 84439; 84443; 84481